=== PATIENT | male | born 1945 | race Caucasian/White ===

== ENCOUNTER → 2022-06-30 16:34 | Outpatient (BNVA) | payer MEDICARE, OTHER, SELFPAY | PROVIDERS: Visit Provider Psychiatry & Neurology Psychiatry | DX: F33.41 Major depressive disorder, recurrent, in partial remission (principal); F41.1 Generalized anxiety disorder | CPT/HCPCS: Q3014 ==

== ENCOUNTER → 2022-11-02 16:15 | Outpatient (BNVA) | payer MEDICARE, OTHER, SELFPAY | PROVIDERS: Visit Provider Psychiatry & Neurology Psychiatry ==

== ENCOUNTER → 2022-11-16 13:49 | Outpatient (BNVA) | payer MEDICARE, OTHER, SELFPAY | PROVIDERS: Visit Provider Psychiatry & Neurology Psychiatry | DX: F33.2 Major depressive disorder, recurrent severe without psychotic features (principal); F41.1 Generalized anxiety disorder | CPT/HCPCS: 99212 ==

== ENCOUNTER → 2022-12-15 12:23 | Outpatient (BNVA) | payer MEDICARE, OTHER, SELFPAY | PROVIDERS: Visit Provider Psychiatry & Neurology Psychiatry | DX: F41.1 Generalized anxiety disorder (principal); F33.41 Major depressive disorder, recurrent, in partial remission; I44.7 Left bundle-branch block, unspecified | CPT/HCPCS: 90833; 99212 ==

== ENCOUNTER 2023-02-20 17:27 | Outpatient (AMB) | payer MEDICARE, OTHER, SELFPAY ==
--- NOTE | 2023-02-20 14:26 | A.OFFPSYCH_ITS ---
Intake Intake Visit Reasons: depression Allergies phenytoin [From Dilantin] Allergy (Intermediate, Verified 06/30/22 16:01) Difficulty Breathing HPI- Psychiatric Chief Complaint: depression HPI Narrative: Patient has had no further seizures. Cognitively is feeling improved better attention working memory. Mood has been more stable no significant episodes of depression he does have some chronic worry regarding his son in [place]. Patient off Wellbutrin doing well with augmentation with Abilify on Trileptal 300 b.i.d. gabapentin 600 mg Abilify has only needed 1 mg daily no changes on EKG or medical status Past Psychiatric History: The patient has a history of recurrent depression and anxiety history of 1-2 seizures many years ago sees Dr. Chavira occasionally Mental Status Exam Mental Status Exam Narrative: Mental Status Exam Narrative: Appearance: Casually dressed Behavior: Cooperative appropriate psychomotor: Within normal limits Speech: Normal volume and prosody Thought proccess logical and goal-directed Thought content: Future oriented some concerns about his son and dealing with multiple medical issues and his own mortality But doing better regarding this Mood: Euthymic Affect: Appropriate to mood full affect SI:denies HI:denies VH/AH:none Delusions: None Insight/judgment: Good insight and judgment Memory/cog: Intact Telehealth Telehealth Location of provider rendering services: practice address Location of patient: address on file Patient Identification confirmed using: Name, : Yes Telehealth method: video Patient verbally consented to treatment: Yes Minutes spent on Phone/Video with Pt.: 20 Assessment and Plan Assessment & Plan (1) LBBB (left bundle branch block): Status: Acute Code(s): I44.7 - Left bundle-branch block, unspecified (2) Generalized anxiety disorder: Status: Acute Code(s): F41.1 - Generalized anxiety disorder (3) Major depressive disorder, recurrent episode, in partial remission: Status: Acute Code(s): F33.41 - Major depressive disorder, recurrent, in partial remission (4) Cardiomyopathy: Status: Acute Code(s): I42.9 - Cardiomyopathy, unspecified Plan Continue Effexor low-dose Abilify can try and taper patient to continue daily exercise meditation engagement in activities Medications: Refilled venlafaxine ER 150 mg PO BEDTIME 90 caps 1RF aripiprazole (Abilify) 1 - 2 mg (0.5 - 1 x 2 mg) PO DAILY 90 tabs 1RF Counseling and coordination of Care Pt. Self Management counseling: Breathing and Behavior activation Medication management counseling: Effectiveness Diagnosis and Prognosis Counseling: Prognosis over time and Adequacy of current interventions Details: I spent [25] minutes reviewing the record, seeing the patient and documenting in the medical record. Counseling provided to the patient/caregiver as outlined below. Addressed patient/caregiver concerns regarding current medication regime including effective adherence. Addressed patient/caregiver concerns regarding diagnosis and prognosis including accuracy of diagnosis, prognosis over time, impact of diagnosis. Addressed patient/caregiver concerns regarding impact of recent stressors. 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
== END 2023-02-20 17:28 | disposition home or self-care (01) ==
LOC: HO.HOP 17:27
PROVIDERS: Visit Provider Psychiatry & Neurology Psychiatry
DX: F33.41 Major depressive disorder, recurrent, in partial remission (principal); F41.1 Generalized anxiety disorder; I42.9 Cardiomyopathy, unspecified; I44.7 Left bundle-branch block, unspecified
CPT/HCPCS: 99214

== ENCOUNTER → 2023-02-20 17:27 | Outpatient (BNVA) | payer MEDICARE, OTHER, SELFPAY | PROVIDERS: Visit Provider Psychiatry & Neurology Psychiatry | DX: I42.9 Cardiomyopathy, unspecified (principal); I44.7 Left bundle-branch block, unspecified ==

== ENCOUNTER 2023-04-18 12:01 | Outpatient (AMB) | payer MEDICARE, OTHER, SELFPAY ==
--- NOTE | 2023-04-18 12:20 | MHC.OFFVISPS ---
Intake Intake Visit Reasons: depression Allergies phenytoin [From Dilantin] Allergy (Intermediate, Verified 06/30/22 16:01) Difficulty Breathing HPI- Psychiatric Chief Complaint: depression HPI Narrative: Pt has been doin g well generally minimal dose of Abilify to get did look at possibly doing ketamine TMS although did have a seizure number months ago patient continues on Effexor 150 mg Abilify generally 1 mg gabapentin 600 mg oxcarbazepine mood is generally been stable some concerns at times regarding his children recently some difficulty in relationship to his ex- who had become reactive with their children mood generally stable future oriented able to enjoy things does yoga biking chronic cardiomyopathy appears not to have generally interfered with his functioning patient did have a concussion number months ago and had some dysphoria slowed mentation after this now improving Past Psychiatric History: The patient has a history of recurrent depression and anxiety history of 1-2 seizures many years ago sees Dr. Chavira occasionally Mental Status Exam Mental Status Exam Narrative: Mental Status Exam Narrative: Appearance: Casually dressed Behavior: Cooperative appropriate psychomotor: Within normal limits Speech: Normal volume and prosody Thought proccess logical and goal-directed Thought content: Future oriented some concerns about his health and family But doing better regarding this Mood: Euthymic some anxiety Affect: Appropriate to mood SI:denies HI:denies VH/AH:none Delusions: None Insight/judgment: Good insight and judgment Memory/cog: Intact Assessment and Plan Assessment & Plan (1) Generalized anxiety disorder: Status: Acute Code(s): F41.1 - Generalized anxiety disorder (2) Major depressive disorder, recurrent episode, in partial remission: Status: Acute Code(s): F33.41 - Major depressive disorder, recurrent, in partial remission (3) Cardiomyopathy: Status: Acute Code(s): I42.9 - Cardiomyopathy, unspecified Plan Continue Effexor Abilify gabapentin encourage yoga meditation patient regularly exercises Medications: Refilled gabapentin 600 mg PO BEDTIME 90 tabs 1RF Counseling and coordination of Care Pt. Self Management counseling: Breathing Details-Self Mgmt counseling: Issues related to health and family Diagnosis and Prognosis Counseling: Impact of diagnosis on life functions and Adequacy of current interventions Details: I spent [30] minutes reviewing the record, seeing the patient and documenting in the medical record. Counseling provided to the patient/caregiver as outlined below. Addressed patient/caregiver concerns regarding current medication regime including effective adherence. Addressed patient/caregiver concerns regarding diagnosis and prognosis including accuracy of diagnosis, prognosis over time, impact of diagnosis. Addressed patient/caregiver concerns regarding impact of recent stressors. 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
== END 2023-04-18 14:45 | disposition home or self-care (01) ==
LOC: HO.HOP 12:01
PROVIDERS: Visit Provider Psychiatry & Neurology Psychiatry
DX: F41.1 Generalized anxiety disorder (principal); F33.41 Major depressive disorder, recurrent, in partial remission; I42.9 Cardiomyopathy, unspecified
CPT/HCPCS: 99214

== ENCOUNTER → 2023-04-18 12:01 | Outpatient (BNVA) | payer MEDICARE, OTHER, SELFPAY | PROVIDERS: Visit Provider Psychiatry & Neurology Psychiatry | DX: F33.41 Major depressive disorder, recurrent, in partial remission (principal); I42.9 Cardiomyopathy, unspecified; G40.909 Epilepsy, unspecified, not intractable, without status epilepticus; F41.1 Generalized anxiety disorder | CPT/HCPCS: 99212 ==

== ENCOUNTER 2023-07-21 17:08 | Outpatient (AMB) | payer MEDICARE, OTHER, SELFPAY ==
--- NOTE | 2023-07-21 12:19 | A.OFFPSYCH_ITS ---
Intake Intake Visit Reasons: DEPRESSION Allergies phenytoin [From Dilantin] Allergy (Intermediate, Verified 06/30/22 16:01) Difficulty Breathing Medication List - Last Reconciled 07/21/23 by Geronimo Jung MD aripiprazole (Abilify) 1 - 2 mg (0.5 - 1 x 2 mg) PO DAILY clonazepam 0.5 mg PO BEDTIME dapagliflozin propanediol (Farxiga) 10 mg PO DAILY eplerenone mg PO gabapentin 600 mg PO BEDTIME metoprolol succinate ER 12.5 mg PO BID oxcarbazepine 300 mg PO BID sacubitril-valsartan 24-26 mg (Entresto) 1 tab PO BID venlafaxine ER 150 mg PO BEDTIME HPI- Psychiatric Chief Complaint: DEPRESSION HPI Narrative: Patient seen psychiatric follow-up patient will be going to [place] for a period of time. The patient's mood has been stable he has been medically stable continues to be physically active. Patient has not had any seizures cognitively he is stable. Has been on Abilify 2 mg has had no evidence dyskinesia abnormal movements. Patient feeling at baseline Past Psychiatric History: The patient has a history of recurrent depression and anxiety history of 1-2 seizures many years ago sees Dr. Chavira occasionally Mental Status Exam Mental Status Exam Narrative: Mental Status Exam Narrative: Appearance: Casually dressed Behavior: Cooperative appropriate psychomotor: Within normal limits Speech: Normal volume and prosody Thought proccess logical and goal-directed Thought content: Future oriented no self-harming thoughts Mood: Euthymic Affect: Appropriate to mood full affect SI:denies HI:denies VH/AH:none Delusions: None Insight/judgment: Good insight and judgment Memory/cog: Intact Assessment and Plan Assessment & Plan (1) Generalized anxiety disorder: Status: Acute Code(s): F41.1 - Generalized anxiety disorder (2) Major depression, recurrent, full remission: Status: Acute Code(s): F33.42 - Major depressive disorder, recurrent, in full remission Plan Patient continues to be stable tolerating current regimen Effexor Abilify 2 mg. We discussed the potential for tapering and discontinuing Abilify at a later point. No evidence side effects continue at this time follow-up 4 months Counseling and coordination of Care Pt. Self Management counseling: Breathing and Exercise Diagnosis and Prognosis Counseling: Problematic behaviors secondary to diagnosis and Adequacy of current interventions Details: I spent [] minutes reviewing the record, seeing the patient and documenting in the medical record. Counseling provided to the patient/caregiver as outlined below. Addressed patient/caregiver concerns regarding current medication regime including effective adherence. Addressed patient/caregiver concerns regarding diagnosis and prognosis including accuracy of diagnosis, prognosis over time, impact o0f diagnosis. Addressed patient/caregiver concerns regarding impact of recent stressors. 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
== END 2023-07-21 17:09 | disposition home or self-care (01) ==
LOC: HO.HOP 17:08
PROVIDERS: Visit Provider Psychiatry & Neurology Psychiatry
DX: F41.1 Generalized anxiety disorder (principal); F33.42 Major depressive disorder, recurrent, in full remission
CPT/HCPCS: 99214

== ENCOUNTER → 2023-07-21 17:08 | Outpatient (BNVA) | payer MEDICARE, OTHER, SELFPAY | PROVIDERS: Visit Provider Psychiatry & Neurology Psychiatry | DX: F33.42 Major depressive disorder, recurrent, in full remission (principal); F41.1 Generalized anxiety disorder; Z79.899 Other long term (current) drug therapy | CPT/HCPCS: 99212 ==

== ENCOUNTER 2023-11-02 13:31 | Outpatient (AMB) | payer MEDICARE, OTHER, SELFPAY ==
--- NOTE | 2023-11-02 14:09 | MHC.OFFVISPS ---
Intake Intake Visit Reasons: depression Allergies phenytoin [From Dilantin] Allergy (Intermediate, Verified 06/30/22 16:01) Difficulty Breathing Medication List - Last Reconciled 11/02/23 by Geronimo Jung MD aripiprazole 1 - 2 mg (0.5 - 1 x 2 mg) PO DAILY clonazepam 0.5 mg PO BEDTIME dapagliflozin propanediol (Farxiga) 10 mg PO DAILY eplerenone mg PO gabapentin 600 mg PO BEDTIME metoprolol succinate ER 12.5 mg PO BID oxcarbazepine 300 mg PO BID rosuvastatin 20 mg PO DAILY sacubitril-valsartan 24-26 mg (Entresto) 1 tab PO BID venlafaxine ER 150 mg PO BEDTIME HPI- Psychiatric Chief Complaint: depression HPI Narrative: Patient seen psychiatric follow-up. Patient's mood has been stable he is future oriented generally doing well. No new medical concerns patient has a history of cardiomyopathy nothing has significantly changed patient has generally been stable on Abilify 2 mg Effexor takes gabapentin oxcarbazepine for combination of seizure disorder and restless leg has not had a seizure in a significant length of time Past Psychiatric History: The patient has a history of recurrent depression and anxiety history of 1-2 seizures many years ago sees Dr. Chavira occasionally Mental Status Exam Mental Status Exam Narrative: Mental Status Exam Narrative: Appearance: Casually dressed Behavior: Cooperative appropriate psychomotor: Within normal limits Speech: Normal volume and prosody Thought proccess logical and goal-directed Thought content: Future oriented no self-harming thoughts Mood: Euthymic Affect: Appropriate to mood full affect SI:denies HI:denies VH/AH:none Delusions: None Insight/judgment: Good insight and judgment Memory/cog: Intact Assessment and Plan Assessment & Plan (1) Major depression, recurrent, full remission: Status: Acute Code(s): F33.42 - Major depressive disorder, recurrent, in full remission (2) Generalized anxiety disorder: Status: Acute Code(s): F41.1 - Generalized anxiety disorder Plan Extensive discussion with the patient regarding long-term risks benefits with Abilify decided to go down to 1 mg also long-term risks benefits with gabapentin and clonazepam and whether these could be contributing factors to dementia risks Medications: Refilled venlafaxine ER 150 mg PO BEDTIME 90 caps 1RF Counseling and coordination of Care Medication management counseling: Effectiveness, Side effects, Dosing range and Duration Details-Med Mgmt counseling: Discussed issues related to discontinuing Abilify versus efficacy and potential long-term risks Details: I spent [] minutes reviewing the record, seeing the patient and documenting in the medical record. Counseling provided to the patient/caregiver as outlined below. Addressed patient/caregiver concerns regarding current medication regime including effective adherence. Addressed patient/caregiver concerns regarding diagnosis and prognosis including accuracy of diagnosis, prognosis over time, impact of diagnosis. Addressed patient/caregiver concerns regarding impact of recent stressors. 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
== END 2023-11-02 14:36 | disposition home or self-care (01) ==
LOC: HO.HOP 13:31
PROVIDERS: Visit Provider Psychiatry & Neurology Psychiatry
DX: F33.42 Major depressive disorder, recurrent, in full remission (principal); F41.1 Generalized anxiety disorder
CPT/HCPCS: 90833; 99213

== ENCOUNTER → 2023-11-02 13:31 | Outpatient (BNVA) | payer MEDICARE, OTHER, SELFPAY | PROVIDERS: Visit Provider Psychiatry & Neurology Psychiatry | DX: F33.42 Major depressive disorder, recurrent, in full remission (principal); F41.1 Generalized anxiety disorder | CPT/HCPCS: 99212 ==

== ENCOUNTER 2024-05-02 14:12 | Outpatient (AMB) | payer MEDICARE, OTHER, SELFPAY ==
--- NOTE | 2024-05-02 14:17 | A.OFFPSYCH_ITS ---
Intake Intake Visit Reasons: depression Allergies phenytoin [From Dilantin] Allergy (Intermediate, Verified 06/30/22 16:01) Difficulty Breathing Medication List - Last Reconciled 05/16/24 by Geronimo Jung MD aripiprazole 1 - 2 mg (0.5 - 1 x 2 mg) PO DAILY clonazepam 0.5 mg PO BEDTIME dapagliflozin propanediol (Farxiga) 10 mg PO DAILY eplerenone mg PO gabapentin 600 mg PO BEDTIME metoprolol succinate ER 12.5 mg PO BID oxcarbazepine 300 mg PO BID rosuvastatin 20 mg PO DAILY sacubitril-valsartan 24-26 mg (Entresto) 1 tab PO BID venlafaxine ER 150 mg PO BEDTIME HPI- Psychiatric Chief Complaint: depression HPI Narrative: Pt seen in f/u goes to [place] taking abilify has generally been doing okay. Enjoys hiking and traveling. Medically no change with his cardiomyopathy that is being treated but not significantly impacting his life and no recent seizures. He notes no abnormal movements he is aware of tardive dyskinesia risks. He spends time in [place] at home in [facility]. He has had thoughts regarding ketamine/psilocybin. His PHQ-9 GRANT are unremarkable. Past Psychiatric History: The patient has a history of recurrent depression and anxiety history of 1-2 seizures many years ago sees Dr. Chavira occasionally Mental Status Exam Mental Status Exam Narrative: Mental Status Exam Narrative: Appearance: Casually dressed no abnormal movements noted on exam no oral facial dyskinesia Behavior: Cooperative appropriate psychomotor: Within normal limits Speech: Normal volume and prosody Thought proccess logical and goal-directed Thought content: Future oriented some concerns regarding recommendations for preventing future relapse some preoccupations regarding sleep Mood: Euthymic Affect: Appropriate to mood SI:denies HI:denies VH/AH:none Delusions: None Insight/judgment: Good insight and judgment Memory/cog: Intact Assessment and Plan Assessment & Plan (1) Generalized anxiety disorder: Status: Acute Code(s): F41.1 - Generalized anxiety disorder (2) Major depression, recurrent, full remission: Status: Acute Code(s): F33.42 - Major depressive disorder, recurrent, in full remission Plan no change indicated at this time patient wishes to continue Abilify he is aware he could start a taper on his own if he wishes. Mood stable cognitively intact no new medical concerns generally done well on current regimen Counseling and coordination of Care Details-Self Mgmt counseling: continue yoga regular excise Medication management counseling: Effectiveness, Side effects and Dosing range Diagnosis and Prognosis Counseling: Prognosis over time Details-Diagnosis/Prognosis counseling: medications reviewed continue gabapentin clonazepam for sleep restless legs seizure disorder continue Effexor low-dose of Abilify Details: I spent [30] minutes reviewing the record, seeing the patient and documenting in the medical record. Counseling provided to the patient/caregiver as outlined below. Addressed patient/caregiver concerns regarding current medication regime including effective adherence. Addressed patient/caregiver concerns regarding diagnosis and prognosis including accuracy of diagnosis, prognosis over time, impact of diagnosis. Addressed patient/caregiver concerns regarding impact of recent stressors. 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
== END 2024-05-02 14:57 | disposition home or self-care (01) ==
LOC: HO.HOP 14:12
PROVIDERS: Visit Provider Psychiatry & Neurology Psychiatry
DX: F41.1 Generalized anxiety disorder (principal); F33.42 Major depressive disorder, recurrent, in full remission
CPT/HCPCS: 99214

== ENCOUNTER → 2024-05-02 14:12 | Outpatient (BNVA) | payer MEDICARE, OTHER, SELFPAY | PROVIDERS: Visit Provider Psychiatry & Neurology Psychiatry | DX: F41.1 Generalized anxiety disorder (principal); F33.42 Major depressive disorder, recurrent, in full remission; Z71.89 Other specified counseling | CPT/HCPCS: 99212 ==

== ENCOUNTER → 2024-10-10 12:07 | Outpatient (BNVA) | payer MEDICARE, OTHER, SELFPAY | PROVIDERS: Visit Provider Psychiatry & Neurology Psychiatry | DX: Z13.89 Encounter for screening for other disorder (principal) ==

== ENCOUNTER 2024-12-17 17:18 | Outpatient (AMB) | payer MEDICARE, OTHER, SELFPAY ==
--- NOTE | 2024-12-17 16:15 | A.OFFPSYCH_ITS ---
Intake Intake Visit Reasons: depression Allergies phenytoin (From Dilantin) Allergy (Intermediate, Verified 06/30/22 16:01) Difficulty Breathing HPI- Psychiatric Chief Complaint: depression HPI Narrative: Pt seen in f/u mood has been more anxious and stressed since ? seizure has recent fatty liver .. Mood some increased anxiety and dysphoria. Patient having medical workup. Question some increase this area after recent seizure not reported syncope. Had been asking about whether to discontinue Abilify Past Psychiatric History: The patient has a history of recurrent depression and anxiety history of 1-2 seizures many years ago sees Dr. Chavira occasionally Mental Status Exam Mental Status Exam Narrative: Patient casually dressed cooperative. Speech normal volume prosody. Mood some dysphoria some constriction future oriented focused on his health no orofacial dyskinesia no psychosis no hallucination Assessment and Plan Assessment & Plan (1) Major depression, recurrent, full remission: Status: Acute Code(s): F33.42 - Major depressive disorder, recurrent, in full remission (2) Generalized anxiety disorder: Status: Acute Code(s): F41.1 - Generalized anxiety disorder (3) Cardiomyopathy: Status: Acute Code(s): I42.9 - Cardiomyopathy, unspecified (4) Seizure disorder: Status: Acute Code(s): G40.909 - Epilepsy, unspecified, not intractable, without status epilepticus Plan Recommend continue Abilify patient will have neurological follow-up and evaluation. Continue plan of care on gabapentin Effexor oxcarbazepine Counseling and coordination of Care Details: I spent [] minutes reviewing the record, seeing the patient and documenting in the medical record. Counseling provided to the patient/caregiver as outlined below. Addressed patient/caregiver concerns regarding current medication regime including effective adherence. Addressed patient/caregiver concerns regarding diagnosis and prognosis including accuracy of diagnosis, prognosis over time, impact of diagnosis. Addressed patient/caregiver concerns regarding impact of recent stressors. 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
--- OUTSIDE RECORDS SUMMARY | 2024-12-17 19:10 | XMS_ITS | Data Portability ---
Author Organization [facility], , [facility] Address [address] [place] [address] Assessment No assessment recorded. Plan of Treatment Reminders Order Date Submit Date Provider Last Modified By Organization Details Last Modified Time Details Appointments None record ed. Lab None record ed. Referral None record ed. Procedures None record ed. Surgeries None record ed. Imaging None record ed. Medication Orders None record ed. Patient TargetsNo targets recorded. Patient InstructionsNo instructions recorded. Reason for Referral None Reported. Problems Name Problem SNOMED Code Status Onset Date Resolution Date Notes Provider Name and Address Organization Details Recorded Time Pain of shoulder region 73164669 Completed 200505/15/[address] 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 3 03:09:49 Problem Notes None recorded. Procedures Surgical History Date Name Laterality Status Provider Name and Address Organization Details Recorded Time 11/06/19 16 Ochoa - Colonoscopy completed Jac Ochoa MD [address] [place] [address], [id number], [facility] 11/06/2015 11:23:34 08/01/19 06 completed Not Available [facility] 1 06:05:52 Imaging Results None recorded. Procedure Notes None recorded. Medical Equipment None Reported. Vitals None Recorded Social History None recorded. Functional Status None recorded. Mental Status None recorded. Family History Nothing Reported. Medical History No medical history recorded. Past Encounters Encounter ID Performer Location Encounter Start Date Encounter Closed Date Diagnosis/Indication Diagnosis SNOMED-CT Code Diagnosis ICD10 Code Diagnosis Note [id number] ARMOND PARKER MD [facility], [address] [id number] 08/01/2005 10:46:52 08/03/2005 08:04:06 [id number] Juan Ramon Szymanski i, PT Physical Therapy, [facility] [place] [id number] 03/30/2006 14:17:55 03/30/2006 15:09:55 [id number] Juan Ramon Szymanski i, PT Physical Therapy, [facility] [place] [id number] 04/04/2006 13:26:08 04/04/2006 15:10:08 [id number] Juan Ramon Szymanski i, PT Physical Therapy, [facility] [place] [id number] 04/11/2006 12:50:43 04/11/2006 15:19:09 [id number] Juan Ramon Szymanski i, PT Physical Therapy, [facility] [place] [id number] 04/18/2006 14:28:35 04/18/2006 15:16:10 [id number] Juan Ramon Szymanski i, PT Physical Therapy, [facility] [place] [id number] 07/07/2006 08:14:33 07/07/2006 08:14:44 [id number] Jac Ochoa MD [facility], [facility] [place] [id number] 11/06/2015 09:44:24 11/06/2015 13:39:44 Health Concerns Section Related Observation LastModified by Organization Detai ls LastModified Time None Recorded Concern Status LastModified by Organization Details LastModified Time None Recorded Advance Directives Directive None Recorded Payers Insurance Date Sequence Insurance Name Policy Number Policy Gallardo Covered Member ID Gallardo Member ID Guarantor Name 09/17/2021 2 [facility] (O) Marty Macias [id number] Marty Macias 10/06/2021 2 [facility] - MEDICARE ENHANCE (INDEMNITY PLAN) Marty Macias [id number] Marty Macias 07/15/2015 1 [facility] PLAN (HMO) Marty Macias [id number] Marty Macias 10/18/2010 1 [facility] Colleen [id number] Marty Macias 10/18/2010 1 [facility] PLAN - LIBERTY PLAN BY JOANNA (PPO) [id number] Jared Macias [id number] Marty Macias 10/06/2021 1 MEDICARE B-MS: [employer] Marty Macias Jr [id number] Marty Macias
== END 2024-12-17 17:20 | disposition home or self-care (01) ==
LOC: HO.HOP 17:18
PROVIDERS: Visit Provider Psychiatry & Neurology Psychiatry
DX: F33.42 Major depressive disorder, recurrent, in full remission (principal); F41.1 Generalized anxiety disorder; I42.9 Cardiomyopathy, unspecified; G40.909 Epilepsy, unspecified, not intractable, without status epilepticus
CPT/HCPCS: 99214

== ENCOUNTER → 2024-12-17 17:18 | Outpatient (BNVA) | payer MEDICARE, OTHER, SELFPAY | PROVIDERS: Visit Provider Psychiatry & Neurology Psychiatry | DX: F33.42 Major depressive disorder, recurrent, in full remission (principal); F41.1 Generalized anxiety disorder; I42.9 Cardiomyopathy, unspecified; G40.909 Epilepsy, unspecified, not intractable, without status epilepticus | CPT/HCPCS: 99212 ==

== ENCOUNTER 2025-01-31 11:35 | Outpatient (AMB) | payer MEDICARE, OTHER, SELFPAY ==
--- NOTE | 2025-01-31 11:40 | A.OFFPSYCH_ITS ---
Intake Intake Visit Reasons: depression Intake Note: Pt has been drinking 3/4 bottle day started surreptitiously drinking Allergies phenytoin (From Dilantin) Allergy (Intermediate, Verified 06/30/22 16:01) Difficulty Breathing HPI- Psychiatric Chief Complaint: depression HPI Narrative: Patient has been increasingly depressed anxious a seizure in November with fall. Patient has apparently been surreptitiously drinking for over year and half. This is in spite of the patient understanding has a seizure disorder and history of cardiomyopathy that alcohol would potentially worsen both issues. The patient can not really explain his behavior neuro why he has not been honest with this literary writer. It appears that he has felt some lost depressed and was looking to none that with alcohol perhaps. Patient has been in counseling but unclear if helpful. Past Psychiatric History: The patient has a history of recurrent depression and anxiety history of 1-2 seizures many years ago sees Dr. Chavira occasionally Mental Status Exam Mental Status Exam Narrative: Patient casually dressed sad looking preoccupied. Patient anxious and dysphoric understands he needs to become sober seems chronically dysthymic although he has multiple interest biking politics he states he has been feeling somewhat lost. Was able to take in information regarding the toxicity of alcohol potential dangerous for him no active SI somewhat fearful of future no psychosis impulse control intact judgment easily somewhat impaired he is looking for help Assessment and Plan Assessment & Plan (1) Generalized anxiety disorder: Status: Acute Code(s): F41.1 - Generalized anxiety disorder (2) Major depression, recurrent, chronic: Status: Acute Code(s): F33.9 - Major depressive disorder, recurrent, unspecified (3) Alcohol use disorder: Status: Acute Code(s): F10.90 - Alcohol use, unspecified, uncomplicated Plan Check labs B12 folate encourage sobriety encourage full honesty patient apparently has been defended needed to cut visit somewhat short he will be going to rehab setting Orders: Orders Comprehensive Met. Panel 01/31/25 I42.9 - Cardiomyopathy, unspecified, K76.0 - Fatty (change of) liver, not elsewhere classified Vitamin B12 and Folate 01/31/25 I42.9 - Cardiomyopathy, unspecified, K76.0 - Fatty (change of) liver, not elsewhere classified Counseling and coordination of Care Pt. Self Management counselin Step program Details-Self Mgmt counseling: Need better understanding of patient's substance history which prior to this patient had stated was long ago in past Patient has some degree of internal despair would benefit from ongoing psycho therapy that also degrees substance abuse piece Medication management counseling: Effectiveness, Side effects and Dosing range Details-Med Mgmt counseling: Continue Abilify might consider spravato patient seems not to be a good candidate for TMS with recent seizures question alcohol-related Diagnosis and Prognosis Counseling: Accuracy of diagnosis, Prognosis over time, Impact of diagnosis on life functions, Problematic behaviors secondary to diagnosis and Adequacy of current interventions Details: I spent [] minutes reviewing the record, seeing the patient and documenting in the medical record. Counseling provided to the patient/caregiver as outlined below. Addressed patient/caregiver concerns regarding current medication regime including effective adherence. Addressed patient/caregiver concerns regarding diagnosis and prognosis including accuracy of diagnosis, prognosis over time, impact of diagnosis. Addressed patient/caregiver concerns regarding impact of recent stressors. 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
== END 2025-01-31 12:31 | disposition home or self-care (01) ==
LOC: HO.HOP 11:35
PROVIDERS: Visit Provider Psychiatry & Neurology Psychiatry
DX: F41.1 Generalized anxiety disorder (principal); F33.9 Major depressive disorder, recurrent, unspecified; F10.90 Alcohol use, unspecified, uncomplicated
CPT/HCPCS: 99214

== ENCOUNTER → 2025-01-31 11:35 | Outpatient (BNVA) | payer MEDICARE, OTHER, SELFPAY | PROVIDERS: Visit Provider Psychiatry & Neurology Psychiatry | DX: F41.1 Generalized anxiety disorder (principal); F33.9 Major depressive disorder, recurrent, unspecified; F10.90 Alcohol use, unspecified, uncomplicated | CPT/HCPCS: 99212 ==

== ENCOUNTER 2025-02-27 14:22 | Outpatient (AMB) | payer MEDICARE, OTHER, SELFPAY ==
--- OUTSIDE RECORDS SUMMARY | 2025-02-25 13:59 | XMS_ITS | Encounter Summary ---
Author Organization [facility] Address [address] [place] [address] [place] [address] Phone Care Team Providers Care Seasoning Sprayer Name Role Phone Ronn Harris MD Unavailable [phone] Debra Rasheed MD Unavailable [phone] Adwoa Mehta MD Unavailable [phone] Byron Beebe DO Unavailable [phone] Harry Moyer MD Primary Care Provider + Reason for Referral * MRI/CAT Scan - Closed Specialty Diagnoses / Procedures Referred By Contac t Referred To Contact Radiology Diagnoses Closed fracture dislocation of joint of left shoulder girdle, initial encounter Procedures CT Shoulder (Left) Real Thompson PA-C 4 [facility], [facility] [place] [address] Phone: tel: fax: [email or web address] Referral ID Status Reason Start Date Expiration Date Visits Re quested Visits Authorized [id number] Closed 02/19/2025 02/19/2026 1 1 Reason for Visit * MRI/CAT Scan - Closed Specialty Diagnoses / Procedures Referred By Contac t Referred To Contact Radiology Diagnoses Closed fracture dislocation of joint of left shoulder girdle, initial encounter Procedures CT Shoulder (Left) Real Thompson PA-C [address] [place] [address] [facility] [place] [address] Phone: tel: fax: mailto:[email or web address] Referral ID Status Reason Start Date Expiration Date Visits Re quested Visits Authorized [id number] Closed 02/19/2025 02/19/2026 1 1 Encounter Details Date Type Department Care Team (Latest Contact Info) Description 02/25/2025 1:59 PM EDT - 02/25/2025 11:59 PM EDT Hospital Encounter [facility], Ct Scan - [address] [address] Real Thompson PA-C 4 [facility], [facility] [place] [address] [email or web address] Arrived Discharge Disposition: Home or Self Care Social History Tobacco Use Types Packs/Day Years Used Date Smoking Tobacco: Former Cigarettes 1 5 0 11/24/1968 - 06/26/1973 Smokeless Tobacco: Never Alcohol Use Standard Drinks/Week Comments No 0 (1 standard drink = 0.6 oz pur e alcohol) Child or Family Care Answer Date Record ed Do you have problems with on e of the following making it difficult for you to work, study, or receive health care? No 06/26/2021 Education Answer Date Recorded Are you interested in more education? Not on christine e 06/29/2023 Are you concerned about learning? Not on file 06/29/2023 No 06/29/2023 No 06/29/2023 Food Answer Date Recorded Within the past 6 months we worried whether our food would run out before we got money to buy more. Never True 02/26/2025 Within the past 6 months the food we bought just didn't last and we didn't have enough money to get more. Never True Residential Stability Answer Date Recor ded What is your housing situation today? I have adonay sing 02/26/2025 How many times have you move d in the past 12 months? Zero (I did not move) 02/26/2025 Paying for Meds Answer Date Recorded Do you have trouble paying for medicines? No 02/26/2025 Paying Utility Bills Answer Date Record ed Do you have trouble paying your heating or elect ricity bill? No 02/26/2025 Transportation Answer Date Recorded Has the lack of transportati on kept you from medical appointments or from getting medications? No 02/26/2025 Unemployment Answer Date Recorded Are you currently unemployed or working on a part-time or temporary basis, and looking for work? No 06/26/2021 Digital Access Answer Date Recorded No 02/26/2025 Yes 02/26/2025 Do you have reliable internet access at home? Ye s 02/26/2025 Do you have a device (e.g., phone, tablet, computer) with a working camera? Yes 02/26/2025 Intimate Partner Violence Answer Date R ecorded Are you denied basic needs s uch as food, clothing, or medical care? No 02/26/2025 In the past 12 months have y ou been in a relationship with a person who hurts, threatens, or tries to control you? No 02/26/2025 Are you denied basic needs s uch as food, clothing, or medical care? No 02/26/2025 In the past 12 months have y ou been in a relationship with a person who hurts, threatens, or tries to control you? No 02/26/2025 Sex and Gender Information Value Date Recorded Sex Assigned at Male 08/15/2020 10:42 AM EST Legal Sex Male 1:14 PM EDT Gender Identity Male 08/15/2020 10:42 AM EST Sexual Orientation Straight 08/15/2020 10 :42 AM EST documented as of this encounter Medications at Time of Discharge ARIPiprazole (ABILIFY) 2 MG tablet Take 2 mg by mouth daily. 05/19/2023 clonazePAM (KLONOPIN) 0.5 MG tablet Take 1 tablet (0.5 mg total) by mouth nightly at bedtime. 10 tablet 03/11/2022 dapagliflozin propanediol (FARXIGA) 10 mg tabletIndications:C hronic systolic heart failure Take 1 tablet (10 mg total) by mouth daily. 90 tablet 3 09/24/2024 eplerenone (INSPRA) 25 MG tabletIndications:C hronic systolic heart failure TAKE ONE-HALF TABLET BY MOUTH ONCE DAILY 45 tablet 3 10/02/2024 gabapentin (NEURONTIN) 600 MG tablet 05/25/2022 metoprolol succinate (TOPROL-XL) 25 MG 24 hr tablet Take 0.5 tablets (12.5 mg total) by mouth daily. 45 tablet 3 11/19/2024 omeprazole (PRILOSEC) 20 MG capsule Take 20 mg by mouth daily. 01/24/2013 OXcarbazepine (TRILEPTAL) 300 MG tablet Take 1 tablet (300 mg total) by mouth 2 (two) times a day. 09/07/2022 rosuvastatin (CRESTOR) 20 MG tablet take one tablet by mouth every day 90 tablet 3 02/28/2024 sacubitriL-valsarta n (ENTRESTO) 24-26 mg per tabletIndications:N on-ischemic cardiomyopathy Take 1 tablet by mouth 2 (two) times a day. 180 tablet 3 10/08/2024 sildenafiL (VIAGRA) 100 mg tablet Take 1 tablet (100 mg total) by mouth daily as needed. 20 tablet 02/16/2023 tamsulosin (FLOMAX) 0.4 mg Cap take 1 capsule by mouth every day 90 capsule 3 08/02/2023 tretinoin (RETIN-A) 0.1 % cream Apply 1 application topically nightly. 2 03/16/2017 venlafaxine (EFFEXOR-XR) 150 MG 24 hr capsuleIndications: Depression Take 1 capsule (150 mg total) by mouth nightly at bedtime. 5 capsule 12/03/2021 documented as of this encounter Plan of Treatment Upcoming Encounters Date Type Department Care Team (Late st Contact Info) Description 12/18/2024 Procedure Pass [facility], Ct Scan - [facility] [address] [place] [address] 03/05/2025 9:00 AM EDT Office Visit [facility] [address] [place] [address] Gab Javed DO [address] [place] [address] [facility] [place] [address] [email or web address] 03/07/2025 10:00 AM EDT Office Visit [facility] [address] [place] [address] Andre Zarate MD, SHEMAR [address] [address] [email or web address] 03/31/2025 8:00 AM EDT Telemedicine [facility] Epilepsy Service [address] [facility], 8th Floor, [address] [place] [address] Lucia Samuel MD 55 [facility] Department of [email or web address] [place] [address] [email or web address] 04/11/2025 2:00 PM EDT Office Visit [facility] Heart Failure & Transplantation [address] [facility], 5th Floor, [address] [place] [address] Raza Pan MD 55 [facility] [address] [place] [address] [email or web address] 10/01/2025 10:30 AM EDT Appointment [facility], Ct Scan - [address] [address] Byron Beebe, DO [address] [place] [address] [email or web address] 10/08/2025 10:30 AM EDT Office Visit [facility] at [address] [address] Byron Beebe, DO [address] [place] [id number] [email or web address] documented as of this encounter Procedures Procedure Name Priority Date/Time Associated Diagnosis Comments CT SHOULDER WITHOUT CONTRAST (LEFT) Urgent/patient waiting 02/25/2025 2:25 PM EDT Closed fracture dislocation of joint of left shoulder girdle, initial encounter documented in this encounter Results * CT SHOULDER WITHOUT CONTRAST (LEFT) (02/25/2025 2:25 PM EDT) MGB IMG RENEWABLE ENERGY CONSULTANT COMMENT Incidental finding: Focal left lower lobe subpleural thickening, indeterminate. Further evaluation with dedicated CT chest may be considered in this patient with a history of non-small cell lung cance [facility] Anatomical Region Laterality Modality Shoulder Left Computed Tomogra phy 02/25/2025 2:34 PM EDT Impressions 02/25/2025 2:48 PM EDT 1. Comminuted minimally displaced impacted fracture of the anterior medial humeral head. Posterior subluxation of the humeral head. 2. Focal posterior left lower lobe subpleural thickening, indeterminate. Further evaluation with dedicated CT chest may be considered in this patient with a history of non-small cell lung cancer. A clinically significant result was initiated on 02/25/2025 2:47 PM, Message ID [id number]. Narrative 02/25/2025 2:[address] SHOULDER WITHOUT CONTRAST (LEFT) Referring clinician's provided indication for this examination in Epic: * Fracture, shoulder TECHNIQUE: Multidetector-row CT of the shoulder, without intravenous contrast using dose-modulation techniques. Images were reconstructed in the axial, coronal, and sagittal planes. 3D images were created on an independent workstation and interpreted. COMPARISON: Left shoulder radiographs 02/19/2025, CT chest 12/11/2024 FINDINGS: Bones and Joints: There is a comminuted minimally displaced impacted fracture of the anterior medial humeral head. The humeral head is subluxed and perched posteriorly on the glenoid. There is moderate underlying degenerative change. There is a moderate glenohumeral joint effusion. There is mild degenerative change of the acromioclavicular joint. Soft Tissues: There is a small fat attenuating lesion within the subscapularis muscle, likely representing old injury or an intramuscular lipoma. Otherwise, the muscles demonstrate normal bulk and density. There is focal posterior left lower lobe subpleural thickening measuring 5 x 10 mm (AP x TR, series 4 image 184). Procedure Note Venus Marcano MD - 02/25/2025 CT SHOULDER WITHOUT CONTRAST (LEFT) Referring clinician's provided indication for this examination in Epic: *Fracture, shoulder TECHNIQUE: Multidetector-row CT of the shoulder, without intravenouscontrast using dose-modulation techniques. Images were reconstructed inthe axial, coronal, and sagittal planes. 3D images were created on anNumedeon workstation and interpreted. COMPARISON: Left shoulder radiographs 02/19/2025, CT chest 12/11/2024 FINDINGS: Bones and Joints: There is a comminuted minimally displaced impactedfracture of the anterior medial humeral head. The humeral head is subluxedand perched posteriorly on the glenoid. There is moderate underlyingdegenerative change. There is a moderate glenohumeral joint effusion.There is mild degenerative change of the acromioclavicular joint. Soft Tissues: There is a small fat attenuating lesion within thesubscapularis muscle, likely representing old injury or an intramuscularlipoma. Otherwise, the muscles demonstrate normal bulk and density. Thereis focal posterior left lower lobe subpleural thickening measuring 5 x 10mm (AP x TR, series 4 image 184). IMPRESSION: 1. Comminuted minimally displaced impacted fracture of the anterior medialhumeral head. Posterior subluxation of the humeral head. 2. Focal posterior left lower lobe subpleural thickening, indeterminate.Further evaluation with dedicated CT chest may be considered in thispatient with a history of non-small cell lung cancer. A clinically significant result was initiated on 02/25/2025 2:47 PM, MessageID [id number]. Real Thompson PA-C IMAd CT EXTREMITY Final Result documented in this encounter Visit Diagnoses Diagnosis Closed fracture dislocation of joint of left shoulder girdle, initial encounter documented in this encounter Additional Health Concerns Assessment Noted Time PHQ-2 Depression Total Score: 0 01/04/20 22 2:34 PM EDT documented as of this encounter Care Teams Seasoning Sprayer Relationship Specialty Start Date End Date Harry Moyer MD [address] [facility] [address] [place] [address] [email or web address] 09/26/24 Ronn Harris MD 234 [facility] 7 [place] [id number] [email or web address] Historical LMR Provider 04/10/17 Debra Rasheed MD 234 [facility] [address] [place] [address] [email or web address] Historical LMR Provider 04/10/17 Adwoa Mehta MD 4 [facility], [facility] [place] [address] [email or web address] Historical LMR Provider 04/10/17 Byron Beebe DO [address] [place] [address] [email or web address] Primary Oncologist Hematology and Oncology 01/14/22 documented as of this encounter Additional Source Comments The information contained in this document represents components of the legal health record. It is not the complete legal health record.[facility]
--- OUTSIDE RECORDS SUMMARY | 2025-02-26 17:43 | XMS_ITS | Encounter Summary ---
Author Organization [facility] Address [address] [employer] [facility] [address] [place] [phone] Phone Care Team Providers Care C.O.D. Biller Name Role Phone Ronn Harris MD Unavailable [phone] Debra Rasheed MD Unavailable Adwoa Mehta MD Unavailable Byron Beebe DO Unavailable [phone] Harry Moyer MD Primary Care Provider + Reason for Visit * Reason Comments Shoulder Pain Encounter Details Date Type Department Care Team (Late st Contact Info) Description 02/26/2025 5:43 PM EDT - 02/27/2025 2:10 AM EDT Emergency [facility] [address] [place] [address] Tete Ruano MD [address] [place] [address] Dusty Hylton MD, DPHIL [address] [place] [address] [email or web address] [email or web address] Disposition: Home or Self Care Social [...] AM EST documented as of this encounter Last Filed Vital Signs Vital Sign Reading Time Taken Comments Blood Pressure 136/86 02/27/2025 12:30 AM EDT Pulse 82 02/27/2025 12:30 AM EDT Temperature 36.6 C (97.9 F) 02/26/2025 2:35 PM EDT Respiratory Rate 18 02/27/2025 12:30 AM EDT Oxygen Saturation 97% 02/27/2025 12:30 AM EDT Inhaled Oxygen Concentration - - Weight 83.5 kg (184 lb) 02/26/2025 2:35 PM EDT Height 180.3 cm (5' 11 ) 02/26/2025 2:35 PM EDT Body Mass Index 25.66 02/26/2025 2:35 PM EDT documented in this encounter Functional Status * Calculated C-SSRS Risk Score (Lifetime/Recent) Answer Date of Assessment Author No Risk Indicated 02/26/2025 2:33 PM EDT Aisha Segura, ADA * [place] Suicide Severity Rating Scale (Screener/Recent Self-Report) Question Answer Date of Assessment Author 1. Wish to be (Past 1 Month) No 025 2:33 PM EDT Aisha Bradford, ADA 2. Non-Specific Active Suici katia Thoughts (Past 1 Month) No 02/26/2025 2:33 PM EDT Aisha Bradford, RN 6. Suicidal Behavior (Lifetime) No 2:33 PM EDT Aisha Bradford, ADA documented as of this encounter Discharge Instructions * Discharge Instructions* Riya Bruce PA-C - 02/27/2025 12:57 AM EDT Please, keep the sling on at all times. Take Tylenol and ibuprofen as needed for pain, avoid any activities that may exacerbate your injury. Apply cold compresses. Follow-up with outpatient orthopedic surgery clinic for further management. Return to the emergency department for any new or concerning symptoms. documented in this encounter Medications at Time of Discharge [...] 10/02/2024 gabapentin (NEURONTIN) 600 MG tablet 05/25/2022 ibuprofen (ADVIL,MOTRIN) 600 MG tablet Take 1 tablet (600 mg total) by mouth every 6 (six) hours as needed for pain (specific location in comments). 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 Impaired fasting glucose Corns Iron deficiency Hypercholesterolemia Squamous cell carcinoma of right lung Iron deficiency anemia, unspecified Past Medical History: Diagnosis Date Bilateral knee pain L>R BPH (benign prostatic hyperplasia) ON MED WITH GOOD CONTROL Bursitis 2013 septic bursitis and cellulitis, left knee prepatella Cardiomyopathy [place] Gold [place] [facility] [place] pain of left knee Continuous positive airway pressure dependence will use summer 2021 Depression on med with good control 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; sees Dr Carbajal yearly([place]) Gastroesophageal reflux disease I don't have acid reflux per se, but I did have gastrititis a few years ago x2 so I take Omeprazole Hx of gastritis Joint pain LBBB (left bundle branch block) 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; 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; 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 [facility] [phone] Osteoarthritis Pure hypercholesterolemia Restless leg syndrome, controlled controlled with gabapentin Seizure 1998, 1999 x2 well controlled on med - none since 1999 Sleep apnea uses dental device Snoring many years Squamous cell carcinoma lung, left had removed Wears eyeglasses Past Surgical History: Procedure Laterality Date BRONCHOSCOPY FLEXIBLE N/A 2021 Performed by Alvino Peralta MD at [facility] [place] CATARACT EXTRACTION Left 06/2020 COLONOSCOPY COLONOSCOPY N/A 02/24/2022 Performed by Morales Milian MD at [facility] ENDOSCOPY KNEE ARTHROPLASTY Bilateral partial KNEE ARTHROSCOPY W/ MENISCAL REPAIR Right 05/[address] Mandel at [facility] LASIK Bilateral 2000 LEFT UNICONDYLAR KNEE ARTHROPLASTY Left 12/21/2018 Performed by Papo Asif MD at [facility] OR REPLACEMENT UNICONDYLAR JOINT KNEE Left 12/21/[address] Papo Asif at [facility] RIGHT ARTHROPLASTY UNICONDYLAR KNEE Right 09/18/2020 Performed by Papo Asif MD at [facility] OR SEGMENTECTOMY LUNG WITH MEDIASTINAL LYMPH NODE DISECTION Right 2021 Performed by Alvino Peralta MD at [facility] [place] SKIN BIOPSY basal cell Family History Problem Relation Age of Onset Colon cancer Mother Dementia Mother Bone cancer Father Prostate cancer Father Dementia Father Heart attack Brother 2 brothers Social History Tobacco Use Smoking status: Former Current packs/day: 0.00 Average packs/day: 1 pack/day for 5.0 years (5.0 ttl pk-yrs) Types: Cigarettes Start date: 11/24/1968 Quit date: 06/26/1973 Years since quittin.7 Smokeless tobacco: Never Vaping Use Vaping status: never used Substance Use Topics Alcohol use: No Drug use: No No current facility-administered medications for this encounter. Current Outpatient Medications Medication Sig Dispense Refill Last Dispense ARIPiprazole (ABILIFY) 2 MG tablet Take 2 mg by mouth daily. Unknown (patient-reported) clonazePAM (KLONOPIN) 0.5 MG tablet Take 1 tablet (0.5 mg total) by mouth nightly at bedtime. 10 tablet 0 Unknown (outside pharmacy) dapagliflozin propanediol (FARXIGA) 10 mg tablet Take 1 tablet (10 mg total) by mouth daily. 90 tablet 3 Unknown (outside pharmacy) eplerenone (INSPRA) 25 MG tablet TAKE ONE-HALF TABLET BY MOUTH ONCE DAILY 45 tablet 3 Unknown (outside pharmacy) gabapentin (NEURONTIN) 600 MG tablet Unknown (patient-reported) metoprolol succinate (TOPROL-XL) 25 MG 24 hr tablet Take 0.5 tablets (12.5 mg total) by mouth daily. 45 tablet 3 Unknown (outside pharmacy) omeprazole (PRILOSEC) 20 MG capsule Take 20 mg by mouth daily. Unknown (patient-reported) OXcarbazepine (TRILEPTAL) 300 MG tablet Take 1 tablet (300 mg total) by mouth 2 (two) times a day. Unknown (no pharmacy) rosuvastatin (CRESTOR) 20 MG tablet take one tablet by mouth every day 90 tablet 3 Unknown (outsidepharmacy) sacubitriL-valsartan (ENTRESTO) 24-26 mg per tablet Take 1 tablet by mouth 2 (two) times a day. 180tablet 3 Unknown (outside pharmacy) sildenafiL (VIAGRA) 100 mg tablet Take 1 tablet (100 mg total) by mouth daily as needed. 20 tablet 0 Unknown (outside pharmacy) tamsulosin (FLOMAX) 0.4 mg Cap take 1 capsule by mouth every day 90 capsule 3 Unknown (outside pharmacy) tretinoin (RETIN-A) 0.1 % cream Apply 1 application topically nightly. 2 Unknown (patient-reported) venlafaxine (EFFEXOR-XR) 150 MG 24 hr capsule Take 1 capsule (150 mg total) by mouth nightly at bedtime. 5 capsule 0 Unknown (outside pharmacy) Vitals BP 138/88 Pulse 77 Temp 36.6 ??C (97.9 ??F) (Temporal) Resp 16 Ht 180.3 cm (5' 11 ) Wt 83.5 kg (184 lb) SpO2 98% BMI 25.66 kg/m?? Pre-Sedation Evaluation Purpose of Sedation: Dislocation Reduction ROS/Med History General Patient has no history of anesthetic complications. Cardiovascular Patient has congestive heart failure. Patient does not have orthopnea. Pulmonary Pulmonary review of systems negative except as noted below. GI/Hepatic/Renal GI/hepatic/renal review of systems negative except as noted below. Chronic renal disease: Trileptal.Neuro/Psych Patient has a history of seizures. Seizure medications prescribed. Endo/Metabolic/Other Negative endo/other ROS. Hematologic Hematology review of systems negative except as noted below. Musculoskeletal Musculoskeletal review of systems negative except as noted below. C-spine cleared by surgeon Physical Exam NPO Status: Yes Hours NPO: 12 Airway: Mallampati score is I. Neck ROM is Full. Mouth opening is normal. TM distance is Normal. Dental: The patient has dental implants, bridges or caps present. Cardiovascular: The cardiovascular exam is normal. Pulmonary: The pulmonary exam is normal. Neurological: The neurological exam is normal. Sedation Plan ASA Score: 2 Results and Data Reviewed: I personally reviewed the lab results. I personally reviewed the radiology results. Sedation Plan: Patient will be placed on diesel scoop operator, continuous pulse oximetry and continuous capnography. Intravenous access will be maintained. Bag valve mask, oxygen and suction will be available at the bedside. Emergency airway equipment will be immediately available. Medication Plan: Propofol 0.05-2mg/kg IV x1 followed by 0.05-1mg/kg every 2 minutes PRN to achieve deep sedation. Informed Consent: Informed consent obtained from: patient Discharge Plan: Discharge Plan: Has a ride with responsible adult documented in this encounter Procedure Notes Only the most recent of 2 notes is shown. * Riya Bruce PA-C - 02/27/2025 2:10 AM EDTAssociated Order(s): Orthopedic Injury Treatment/Splint/Cast Application Procedure Orthopedic Injury Treatment/Splint/Cast Application Date/Time: 02/27/2025 3:34 AM Performed by: Riya Bruce PA-C Authorized by: Dusty Hylton MD, DPHIL Injury Injury location: Shoulder Location details: Left shoulder Injury type: Dislocation Dislocation type: posterior Chronicity: Recurrent Hill-Sachs deformity?: Yes Pre-procedure assessment Neurovascular status: Neurovascularly intact Distal perfusion: normal Neurological function: normal Range of motion: reduced Local anesthesia used?: No Procedure details Manipulation performed?: Yes Reduction method: Traction and counter traction Reduction successful?: Yes Confirmation: Reduction confirmed by x-ray Immobilization: Sling Post-procedure assessment Neurovascular status: Neurovascularly intact Distal perfusion: normal Neurological function: normal Range of motion: improved Patient tolerance: Patient tolerated the procedure well with no immediate complications Cosigned by Dusty Hylton MD, DPHIL at 02/27/2025 2:18 PM EDT Associated attestation - Dusty Hylton MD, DPHIL - 02/27/2025 2:18 PM EDT IDusty MD, DPHIL, the Attending Physician was present during the entire procedure. documented in this encounter ED Notes * Lisa Mg RN - 02/27/2025 1:45 AM EDT ED Discharge Nursing Note Pt d/c instructions reviewed with no questions or concerns, pt in NAD, breathing even and unlabored, ambulates with a steady gait * Riya Bruce PA-C - 02/27/2025 12:57 AM EDT Patient was signed out to me at shift change disposition pending shoulder reduction. HPI and physical exam as above. I discussed procedure and procedural sedation with the patient. Obtain consent. Procedure was performed under supervision of . Patient tolerated procedure well. Postreduction x-ray showed No dislocation. Comminuted Hill-Sachs fracture is again visualized. Patient was discharged with return precautions and advised to follow-up outpatient with Ortho clinic for further management. * Aisha Bradford RN - 02/26/2025 2:33 PM EDT Pt here for eval of L shoulder pain. Pt had a dislocation and reduction here. Pt popped his shoulder out again the next morning. He has CT scan 2 days ago. Pt is waiting to f/o with ortho next week. CMS+ RUE. * Ruthy Witt PA-C - 02/26/2025 2:25 PM EDT Chief Complaint Chief Complaint Patient presents with Shoulder Pain History of Present Illness 79 y/o M presents for evaluation of shoulder pain. The patient was seen here in the emergency room on 02/18 and diagnosed with a posterior dislocation of left shoulder and an impaction fracture of the anterior humeral head s/p seizure. This was reduced and he was placed in an abduction splint. He says that he dislocated the shoulder again the following morning after he stretched while waking up. He was not wearing the sling at this time. He was seen at the orthopedic clinic at this time and ordered for a CT scan to evaluate the bone structure. The orthopedic note mentions that due to the severity of the fracture and recurrent dislocation, a reverse total shoulder arthroplasty is planned. The patient was scheduled to follow-up with Dr. Javed to discuss surgical options. He has not met with Dr. Javed yet. He had a CT done yesterday which showed a comminuted minimally displaced impacted fracture of the anterior medial humeral head and posterior subluxation of the humeral head. He presents here today hoping that the dislocation can be reduced. He says that he has an appointment with an [facility] surgeon next week. Unless otherwise specified, I have reviewed and agree with the triage and nursing notes. ROS A ten point review of systems was negative except what was noted in the HPI. 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; sees Dr Carbajal yearly([facility]) Gastroesophageal reflux disease I don't have acid reflux per se, but I did have gastrititis a few years ago x2 so I take Omeprazole Hx of gastritis Joint pain LBBB (left bundle branch block) 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; 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; 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 [facility] [phone] Osteoarthritis Pure hypercholesterolemia Restless leg syndrome, controlled controlled with gabapentin Seizure 1998, 1999 x2 well controlled on med - none since 1999 Sleep apnea uses dental device Snoring many years Squamous cell carcinoma lung, left had removed Wears eyeglasses Past Surgical History Past Surgical History: Procedure Laterality Date BRONCHOSCOPY FLEXIBLE N/A 2021 Performed by Alvino Peralta MD at [facility] [place] CATARACT EXTRACTION Left 06/2020 COLONOSCOPY COLONOSCOPY N/A 02/24/2022 Performed by Morales Milian MD at [facility] ENDOSCOPY KNEE ARTHROPLASTY Bilateral partial KNEE ARTHROSCOPY W/ MENISCAL REPAIR Right 05/[address] Mandel at [facility] LASIK Bilateral 2000 LEFT UNICONDYLAR KNEE ARTHROPLASTY Left 12/21/2018 Performed by Papo Asif MD at [facility] OR REPLACEMENT UNICONDYLAR JOINT KNEE Left 12/21/[address] Papo Asif at [facility] RIGHT ARTHROPLASTY UNICONDYLAR KNEE Right 09/18/2020 Performed by Papo Asif MD at [facility] OR SEGMENTECTOMY LUNG WITH MEDIASTINAL LYMPH NODE DISECTION Right 2021 Performed by Alvino Peralta MD at [facility] [place] SKIN BIOPSY [employer] [place] Medications Prior to Admission medications Medication Sig ARIPiprazole (ABILIFY) 2 MG tablet 2 mg, Daily clonazePAM (KLONOPIN) 0.5 MG tablet 0.5 mg, Oral, Nightly dapagliflozin propanediol (FARXIGA) 10 mg tablet 10 mg, Oral, Daily eplerenone (INSPRA) 25 MG tablet 12.5 mg, Oral, Daily gabapentin (NEURONTIN) 600 MG tablet No dose, route, or frequency recorded. metoprolol succinate (TOPROL-XL) 25 MG 24 hr tablet 12.5 mg, Oral, Daily omeprazole (PRILOSEC) 20 MG capsule 20 mg, Daily OXcarbazepine (TRILEPTAL) 300 MG tablet 300 mg, Oral, 2 times daily rosuvastatin (CRESTOR) 20 MG tablet 20 mg, Oral, Daily sacubitriL-valsartan (ENTRESTO) 24-26 mg per tablet 1 tablet, Oral, 2 times daily sildenafiL (VIAGRA) 100 mg tablet 100 mg, Oral, Daily as needed tamsulosin (FLOMAX) 0.4 mg Cap 0.4 mg, Oral, Every morning tretinoin (RETIN-A) 0.1 % cream Nightly venlafaxine (EFFEXOR-XR) 150 MG 24 hr capsule 150 mg, Oral, Nightly Allergies Allergies Allergen Reactions Dilantin [Phenytoin Sodium Extended] Flushing Trouble breathing and flushing Phenytoin Other Reaction(s): Other (See Comments) FLUSHED Social and Family History Social History Tobacco Use Smoking status: Former Current packs/day: 0.00 Average packs/day: 1 pack/day for 5.0 years (5.0 ttl pk-yrs) Types: Cigarettes Start date: 11/24/1968 Quit date: 06/26/1973 Years since quittin.7 Smokeless tobacco: Never Substance Use Topics Alcohol use: No Social History Substance and Sexual Activity Drug Use No Family History Problem Relation Age of Onset Colon cancer Mother Dementia Mother Bone cancer Father Prostate cancer Father Dementia Father Heart attack Brother 2 brothers Physical Exam Vital Signs: ED Triage Vitals [02/26/25 1435] Encounter Vitals Group BP 119/70 Systolic BP Percentile Diastolic BP Percentile Heart Rate 88 Respiratory Rate 16 Temperature 36.6 ??C (97.9 ??F) Temp Source Temporal SpO2 97 % Weight 184 lb Height 5' 11 Head Circumference Peak Flow Pain Score Pain Loc Pain Education Exclude from Growth Chart Physical Exam Vitals and nursing note reviewed. Constitutional: General: He is not in acute distress. HENT: Head: Normocephalic. Nose: Nose normal. Mouth/Throat: Pharynx: Oropharynx is clear. Eyes: Conjunctiva/sclera: Conjunctivae normal. Cardiovascular: Rate and Rhythm: Normal rate. Pulses: Normal pulses. Pulmonary: Effort: Pulmonary effort is normal. Musculoskeletal: Comments: Left upper extremity is in an abduction splint. Upon removing the splint, there is normalgrip strength, sensation, and perfusion. Limited range of motion. Skin: General: Skin is warm and dry. Neurological: Mental Status: He is alert. Laboratory Testing No results found for this visit on 02/26/25. Radiology Testing XR Shoulder (Left) (Results Pending) [facility] Assessment and Plan: 79 y/o M presenting for evaluation of recurrent left posterior shoulder dislocation in setting of impaction fracture to the humeral head. He is hemodynamically stable. Physical exam as documented above. Reviewed CT from 02/25 with findings as stated above. Urrutia technique attempted with scapular manipulation. Assistance from Dr. Ruano. Following this attempt, patient was able to range his shoulder more. X-ray is in process to ensure reduction. Care will be signed out pending this. If reduced, will be discharged in sling with orthopedic follow-up. Category 2 and 3: Independent Interpretation of Tests, Consideration of Tests, or External Discussion of Results: Radiology: Radiology studies were independently interpreted. Clinical Impressions as of 02/26/251926 Posterior dislocation of left shoulder joint, initial encounter Clinical Impression Diagnosis Description Comment Final diagnosis Posterior dislocation of left shoulder joint, initial encounter Posterior dislocation of left shoulder joint, initial encounter -- Disposition: Signed out Ruthy Witt PA-C 02/26/251926 * Tete Ruano MD - 02/26/2025 2:25 PM EDT ED Course Clinical Impressions as of 02/26/252138 Posterior dislocation of left shoulder joint, initial encounter Assessment and Plan: We did do manual reduction with him technique and scapular manipulation as well as some traction patient tolerated actually very well just with relaxation and massage of the muscles for reducing stress there was obvious movement of shoulder however patient is still having pain which is understandable with acute fracture as well. Patient was able to mobilize the shoulder better afterwards he is able to reach across to opposite shoulder and up to nose with better mobility. Prerelocation patient had normal CSM's normal axillary radial and medial and ulnar nerves intact with normal strength and sensation. Did discuss risks of possible procedure with propofol if this did not completely reduce the shoulder. Medically I do feel markedly better the patient is able to mobilize the shoulder better than previous prior to Renan technique and procedure here. We are currently waiting for radiology's final read to make sure that it is in with patient's complicated history of posterior shoulder dislocation procedure about 2 weeks ago also with fracture and has been out now for approximately a week. Patient was placed in sling will need swath was instructed not to raise his hand above his head patientwill need Ortho for follow-up. If x-ray is not definitive possibly axillary views will need to be pe rformed or CT scan tonight if shoulder is not reduced patient may need procedural sedation for retry at reduction. Patient signed out at change of shift pending final radiology x-ray read of left shoulder I did independently interpret it does appear to be reduced on my exam however again waiting for final x-ray read. Attestation: I saw the patient as part of a shared visit with the advanced practice practitioner. I personally made or approved the management plan and take responsibility for the patient management. Tete Ruano MD 02/26/252143 documented in this encounter Plan of Treatment Upcoming Encounters Date Type Department Care Team (Late st Contact Info) Description 12/18/2024 Procedure Pass [facility] [address] [address] 03/05/2025 9:00 AM EDT Office Visit [facility] Orthopedics & Sports Medicine [address] [place] [id number] Gab Javed DO 4 [facility] [place] [address] [email or web address] 03/07/2025 10:00 AM EDT Office Visit [facility] Sports [address] [address] Andre Zarate MD, SHEMAR [address] [address] [email or web address] 03/31/2025 8:00 AM EDT Telemedicine [facility] [place] Service [address] [facility], 8th Floor, [address] [place] [address] Lucia Samuel MD 55 [facility] Department of [email or web address] [place] [address] [email or web address] 04/11/2025 2:00 PM EDT Office Visit [facility] Heart Failure & Transplantation [address] [facility], 5th Floor, [address] [place] [address] Raza Pan MD 55 [facility] [address] [place] [address] [email or web address] 10/01/2025 10:30 AM EDT Appointment [facility] Scan [address] [address] Byron Beebe DO [address] [place] [address] [email or web address] 10/08/2025 10:30 AM EDT Office Visit [facility] [place] [place] [address] [place] [phone] Byron Beebe, [address] [place] [address] [email or web address] documented as of this encounter Procedures Procedure Name Priority Date/Time Associated Diagnosis Comments SEDATION Routine 02/27/2025 2:19 PM EDT ORTHOPEDIC INJURY TREATMENT Routine 02/27/2025 3:34 AM EDT XR SHOULDER 2 VIEWS (LEFT) Routine 02/27/2025 12:21 AM EDT XR SHOULDER 2 VIEWS (LEFT) Routine 02/26/2025 7:59 PM EDT documented in this encounter Results * Sedation (02/27/2025 2:19 PM EDT) Narrative Dusty Hylton MD, RONANL - 02/27/2025 2:19 PM EDT Dusty Hylton MD, DPROSIEL 02/27/2025 2:20 PM Sedation Date/Time: 02/27/2025 2:19 PM Performed by: Dusty Hylton MD, RONANL Authorized by: Dusty Hylton MD, DPROSIEL Consent obtained: Yes Time out: Immediately prior to the procedure a time-out was called Indications: Procedure performed: Fracture reduction Pre-sedation assessment: Pre-sedation evaluation completed; I examined and reassessed this patient immediately prior to administration of sedation Pre sedation evaluation completed by: Dusty Flores MD, Ronanl Procedure details (see MAR for exact dosages): I was present for the length of the entire sedation timeframe from first injection and continuously throughout for 20 minutes Intended level of sedation: Deep Preoxygenation: Nasal cannula Sedation: Propofol Intra-procedure monitoring: Blood pressure monitoring, continuous capnometry, frequent LOC assessments, frequent vital sign checks, continuous pulse oximetry and diesel scoop operator Intra-procedure events: none Post-procedure details: Attendance: constant attendance by certified staff until patient recovered Recovery: patient returned to pre-procedure baseline for mental status and respiratory function Post-sedation assessments completed and reviewed: airway patency, cardiovascular function, mental status and respiratory function Patient tolerance: Tolerated well, no immediate complications Dusty Hylton MD, MADONNA[facility] TION ORDERABLES - ONCE Final Result * ORTHOPEDIC INJURY TREATMENT (02/27/2025 3:34 AM EDT) Narrative Dusty Hylton MD, SOREN - 02/27/2025 3:34 AM EDT Dusty Hylton MD, SOREN 02/27/2025 2:18 PM Orthopedic Injury Treatment/Splint/Cast Application Date/Time: 02/27/2025 3:34 AM Performed by: Riya Bruce PA-C Authorized by: Dusty Hylton MD, SOREN Injury Injury location: Shoulder Location details: Left shoulder Injury type: Dislocation Dislocation type: posterior Chronicity: Recurrent Hill-Sachs deformity?: Yes Pre-procedure assessment Neurovascular status: Neurovascularly intact Distal perfusion: normal Neurological function: normal Range of motion: reduced Local anesthesia used?: No Procedure details Manipulation performed?: Yes Reduction method: Traction and counter traction Reduction successful?: Yes Confirmation: Reduction confirmed by x-ray Immobilization: Sling Post-procedure assessment Neurovascular status: Neurovascularly intact Distal perfusion: normal Neurological function: normal Range of motion: improved Patient tolerance: Patient tolerated the procedure well with no immediate complications us Dusty Hylton MD, RONANL PROCEDURE/MINOR S URGICAL ORDERABLES Final Result * XR SHOULDER 2 VIEWS (LEFT) (02/27/2025 12:21 AM EDT) Anatomical Region Laterality Modality Shoulder Left Computed Radiogr aphy 02/27/2025 1:49 AM EDT Impressions 02/27/2025 1:50 AM EDT FINDINGS/IMPRESSION: No dislocation. Comminuted Hill-Sachs fracture is again visualized. Narrative 02/27/2025 1:50 AM EDT XR SHOULDER 2 OR MORE VIEWS (LEFT) Referring clinician's provided indication for this examination in Epic: Pain COMPARISON: Shoulder radiographs 02/26/2025, CT shoulder 02/25/2025. Procedure Note Papo Claudio MD - 02/27/2025 XR SHOULDER 2 OR MORE VIEWS (LEFT) Referring clinician's provided indication for this examination in Epic:Pain COMPARISON: Shoulder radiographs 02/26/2025, CT shoulder 02/25/2025. IMPRESSION: FINDINGS/IMPRESSION: No dislocation. Comminuted Hill-Sachs fracture is again visualized. us Riya Bruce PA-C IMG XR UPPER EXTREMITY Lis l Result * XR SHOULDER 2 VIEWS (LEFT) (02/26/2025 7:59 PM EDT) Anatomical Region Laterality Modality Shoulder Left Computed Radiogr aphy 02/26/2025 9:48 PM EDT Impressions 02/26/2025 9:51 PM EDT Persistent left posterior shoulder dislocation with large reverse Hill-Sachs impaction fracture. Narrative 02/26/2025 9:51 PM EDT XR SHOULDER 2 OR MORE VIEWS (LEFT) Referring clinician's provided indication for this examination in Epic: Pain COMPARISON: CT SHOULDER WITHOUT CONTRAST (LEFT) FINDINGS: Persistent left posterior shoulder dislocation with large reverse Hill-Sachs impaction fracture better delineated on prior CT. Similar mild widening of the AC joint with background degenerative changes and chronic appearing intra-articular body, possibly age-indeterminate AC joint injury. Procedure Note Joey Hoang MD - 02/26/2025 XR SHOULDER 2 OR MORE VIEWS (LEFT) Referring clinician's provided indication for this examination in [facility]:Pain COMPARISON: CT SHOULDER WITHOUT CONTRAST (LEFT) FINDINGS: Persistent left posterior shoulder dislocation with large reverseHill-Sachs impaction fracture better delineated on prior CT. Similar mildwidening of the AC joint with background degenerative changes and chronicappearing intra-articular body, possibly age-indeterminate AC jointinjury. IMPRESSION: Persistent left posterior shoulder dislocation with large reverseHill-Sachs impaction fracture. Ruthy Witt PA-C IMG XR UPPER EXTREMITY Final Result documented in this encounter Visit Diagnoses Diagnosis Posterior dislocation of left shoulder joint, initial encounter- Primary documented in this encounter Administered Medications Inactive Administered Medications - up to 3 most recent administrations Medication Order MAR Action Action Date Dose Rate Site acetaminophen (TYLENOL) tablet 975 mg 975 mg, Oral, Once, On Mon02/26/25 at 2030, For 1 dose Given 02/26/2025 9:38 PM EDT 975 mg ibuprofen (ADVIL,MOTRIN) tablet 600 mg 600 mg, Oral, Once, On Ileana 02/27/25 at 0100, For 1 dose Given 02/27/2025 1:27 AM EDT 600 mg propofol (DIPRIVAN) injection Code/trauma/sedation continuous med, Starting on Mon02/26/25 at 2352 New Bag 02/26/2025 11:54 PM EDT 20 mg Right Arm New Bag 02/26/2025 11:52 PM EDT 40 mg R ight Arm documented in this encounter Active and Recently Administered Medications Times are shown in EDT. Scheduled Medication Order 02/25/2025 02/26/2025 02/27/2025 acetaminophen (TYLENOL) tablet 975 mg (COMPLETED) 975 mg, Oral, Once, On Mon02/26/25 at 2030, For 1 dose 2137 (Given - Provider: Lisa Mg, ADA) ibuprofen (ADVIL,MOTRIN) tablet 600 mg (COMPLETED) 600 mg, Oral, Once, On Ileana 02/27/25 at 0100, For 1 dose 0127 (Given - Provid er: Lisa Mg RN) PRN Medication Order 02/25/2025 02/26/2025 02/27/2025 propofol (DIPRIVAN) injection (COMPLETED) Code/trauma/sedation continuous med, Starting on Mon02/26/25 at 2352 2352 (New Bag - Provider: Riya Bruce PA-C)8457 (New Bag - Provider: Riya Bruce PA-C) 0129 (Stopped - Provider: Asuncion Allen RN) documented in this encounter Additional Health Concerns Assessment Noted Time PHQ-2 Depression Total Score: 0 01/04/20 22 2:34 PM EDT documented as of this encounter Care Teams C.O.D. Biller Relationship Specialty Start Date End Date Harry Moyer MD 243 [facility] [address] [place] [address] [email or web address] PCP - General Internal Medicine 09/26/24 Ronn Harris MD [address] [id number] [email or web address] Historical LMR Provider 04/10/17 Debra Rasheed MD [address] [place] [address] [email or web address] Historical LMR Provider 04/10/17 Adwoa Mehta MD 4 [facility] Orthopedics & [facility] Medicine, [facility] [place] [address] Historical LMR Provider 04/10/17 Byron Beebe DO [address] [place] [address] [email or web address] Primary Oncologist Hematology and Oncology 01/14/22 documented as of this encounter Additional Source Comments The information contained in this document represents components of the legal health record. It is not the complete legal health record.[facility]
--- NOTE | 2025-02-27 14:15 | A.OFFPSYCH_ITS ---
Intake Intake Visit Reasons: depression Allergies phenytoin (From Dilantin) Allergy (Intermediate, Verified 06/30/22 16:01) Difficulty Breathing HPI- Psychiatric Chief Complaint: depression HPI Narrative: Pt seen with went to [facility] had sz dislocated shoulder at [facility] after sz they has d/c klonapin and had sz he had been drinking over 1 1/2 yrs victoria had also taken wifes adderall he initially denied has been going to [facility] they did start seeing therapist together pt was also taking gummies to disengage has been sober for short period of time continues on Effexor and Abilify clonazepam was discontinued at rehab setting restarted after 2 seizures in rehab setting Past Psychiatric History: The patient has a history of recurrent depression and anxiety history of 1-2 seizures many years ago sees Dr. Chavira occasionally Mental Status Exam Mental Status Exam Narrative: Patient seen telehealth with his . Patient depressed constricted future oriented denies active SI. He is quite concerned over what is going on his marriage his quite concerned that he was not on his regarding his substance use which included marijuana alcohol and using Adderall had. Patient states he has been sober insight and judgment do seem impaired no hallucinations or delusional material focuses on recent events Assessment and Plan Assessment & Plan (1) Generalized anxiety disorder: Status: Acute Code(s): F41.1 - Generalized anxiety disorder (2) Cardiomyopathy: Status: Acute Code(s): I42.9 - Cardiomyopathy, unspecified (3) LBBB (left bundle branch block): Status: Acute Code(s): I44.7 - Left bundle-branch block, unspecified (4) Major depression, recurrent, chronic: Status: Acute Code(s): F33.9 - Major depressive disorder, recurrent, unspecified Plan Continue present plan of care including gabapentin clonazepam Effexor Abilify for depression. Encourage a and sponsor. Discussed option of partial hospital program given patient had to drop out of rehab program secondary to seizure Patient's acknowledgement of alcohol use in ongoing way is particularly showing a lack of concern been cardiomyopathy seizure disorder follow-up 1-2 weeks recommended PHP Counseling and coordination of Care Pt. Self Management counseling: Breathing and Substance abuse tx adhere Details-Self Mgmt counseling: Patient under significant stress with now open addiction issues and its impact on his marriage Medication management counseling: Effectiveness, Side effects and Dosing range Diagnosis and Prognosis Counseling: Problematic behaviors secondary to diagnosis and Adequacy of current interventions Details-Diagnosis/Prognosis counseling: Discussed option of PHP dual diagnosis program Details: I spent [] minutes reviewing the record, seeing the patient and documenting in the medical record. Counseling provided to the patient/caregiver as outlined below. Addressed patient/caregiver concerns regarding current medication regime including effective adherence. Addressed patient/caregiver concerns regarding diagnosis and prognosis including accuracy of diagnosis, prognosis over time, impact of diagnosis. Addressed patient/caregiver concerns regarding impact of recent stressors. 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
--- OUTSIDE RECORDS SUMMARY | 2025-02-27 15:41 | XMS_ITS | Encounter Summary ---
Author Organization [facility] Address [facility] [address] [facility] [address] [place] [address] Phone Care Team Providers Care Senior Medical Writer Name Role Phone Bea Monroy Claudy PEDRO Unavailable Aisha TaborP Unavailable [phone] Ronn Harris MD Unavailable Debra Rasheed MD Unavailable Adwoa Mehta MD Unavailable [phone] Debra Rasheed MD Unavailable [phone] Malaika Hidalgo MD Primary Care Provider [phone] Byron Beebe DO Unavailable Malaika Hidalgo MD Unavailable [phone] Unknown, Unknown Primary Care Provider Malaika Parham MD Unavailable [phone] Harry Moyer MD Primary Care Provider + Encounter Details Date Type Department Care Team (Late st Contact Info) Description 02/18/2022 Procedure Pass [facility], Ct Scan - [address] [address] Social History Tobacco Use Types Packs/Day Years [...] Answer Date Recorded Are you interested in help w ith more adult education (for example, completing high school, GED, job training, learning the [place] language, technical skills, or developing parenting skills)? No 06/26/2021 Food Answer Date Recorded Within the past 6 months we worried whether our food would run out before we got money to buy more. Never True 06/26/2021 Within the past 6 months the food we bought just didn't last and we didn't have enough money to get more. Never True Residential Stability Answer Date Recor ded What is your housing situation today? I have adonay sing 06/26/2021 How many times have you move d in the past 12 months? Zero (I did not move) 06/26/2021 Paying for Meds Answer Date Recorded Do you have trouble paying for medicines? No 06/26/2021 Paying Utility Bills Answer Date Record ed Do you have trouble paying your heating or elect ricity bill? No 06/26/2021 Transportation Answer Date Recorded Has the lack of transportati on kept you from medical appointments or from getting medications? No 06/26/2021 Unemployment Answer Date Recorded Are you currently unemployed or working on a part-time or temporary basis, and looking for work? No 06/26/2021 Sex and Gender Information Value Date Recorded Sex Assigned at Male 08/15/2020 10:42 AM EST Legal Sex Male 1:14 PM EDT Gender Identity Male 08/15/2020 10:42 AM EST Sexual Orientation Straight 08/15/2020 10 :42 AM EST documented as of this encounter Plan of Treatment Upcoming Encounters Date Type Department Care Team (Late st Contact Info) Description 12/18/2024 Procedure [facility] Scan - [facility] [address] [place] [address] 03/05/2025 9:00 AM EDT Office Visit [facility] Orthopedics & Sports Medicine [address] [place] [address] [phone] Gab Javed, DO 4 [facility] Orth[facility]ics & [facility] [place] [address] [email or web address] 03/07/2025 10:00 AM EDT Office Visit [facility] [address] [place] [address] Andre Zarate MD, SHEMAR [address] [address] [email or web address] 03/31/2025 8:[address] [facility] [address] [facility], 8th Floor, [address] [place] [address] Lucia Samuel MD 55 [facility] Department of [id number] [place] [address] [email or web address] 04/11/2025 2:00 PM EDT Office [facility] Heart Failure & Transplantation 32 [facility], 5th Floor, [address] [place] [address] Raza Pan MD [address] [address] [email or web address] 10/01/2025 10:30 AM EDT Appointment [facility], Ct Scan - [address] [address] Byrno Beebe, DO [address] [place] [phone] [email or web address] 10/08/2025 10:30 AM EDT Office Visit [facility] at [address] [address] Byron Beebe, DO 30 [place] [address] [email or web address] documented as of this encounter Visit Diagnoses Not on filedocumented in this encounter Additional Health Concerns Assessment Noted Time PHQ-2 Depression Total Score: 0 01/04/20 22 2:34 PM EDT documented as of this encounter Care Teams Senior Medical Writer Relationship Specialty Start Date End Date Malaika Hidalgo MD 234 [facility] 7 [place] [address] [email or web address] PCP - General Family Medicine 01/14/22 01/16/24 Unknown, Veena, PCP - General 01/17/24 09/25/24 Harry Moyer MD [address] [place] [id number] [email or web address] PCP - General Internal Medicine 09/26/24 Bea Monroy DO 234 [facility] [address] [place] [address] [email or web address] Historical LMR Provider 04/10/17 01/16/24 Aisha Tabor FNP 234 [facility] 7 [place] [address] [email or web address] Historical LMR Provider 04/10/17 01/16/24 Ronn Harris MD 234 [facility] [address] [place] [phone] [email or web address] Historical LMR Provider 04/10/17 Debra Rasheed MD 234 [facility] 7 [place] [address] Historical LMR Provider 04/10/17 Adwoa Mehta MD [address] [place] [address] Orthopedics & Sports Medicine, [place] [address] Historical LMR Provider 04/10/17 Debra Rasheed MD [address] [place] [address] 7 [place] [address] Insurance Assigned Provider 01/27/18 10/01/22 Byron Beebe DO [address] [place] [phone] [email or web address] Primary Oncologist Hematology and Oncology 01/14/22 Malaika Hidalgo MD [address] [place] [address] 7 [place] [address] Insurance Assigned Provider 09/30/23 01/16/24 Malaika Hidalgo MD [address] [place] [address] 7 [place] [address] Insurance Assigned Provider 09/30/23 07/01/24 documented as of this encounter Additional Source Comments The information contained in this document represents components of the legal health record. It is not the complete legal health record.[facility]
--- OUTSIDE RECORDS SUMMARY | 2025-02-27 15:41 | XMS_ITS | Encounter Summary ---
Author Organization [facility] Address [address] [place] [address] [place] [address] Phone Care Team Providers Care Electrical Continuity Tester Name Role Phone Debra Rasheed MD Primary Care Provider Marielena Llanes AS400 PROGRAMMER ANALYST Unavailable Real Welch DO Unavailable Bea Monroy DO Unavailable Sarah Long AS400 PROGRAMMER ANALYST Unavailable Gab Garrett MD Unavailable Gab Javed DO Unavailable Aisha Tabor INSURANCE WRITER Unavailable Ronn Harris MD Unavailable Tess Chan AS400 PROGRAMMER ANALYST Unavailable Debra Rasheed MD Unavailable Adwoa Mehta MD Unavailable Pranav Harris MD Unavailable Ronn Shea MD Unavailable Debra Rasheed MD Unavailable Malaika Hidalgo MD Primary Care Provider [phone] Byron Beebe DO Unavailable Malaika Hidalgo MD Unavailable [phone] Unknown, Unknown Primary Care Provider Malaika Parham MD Unavailable [phone] Harry Moyer MD Primary Care Provider + Encounter Details Date Type Department Care Team (Late st Contact Info) Description 02/02/2021 Procedure Pass [facility] - MRI [address] [facility], 6th [place] [address] Social History Tobacco Use Types Packs/Day Years Used Date Smoking Tobacco: Former Cigarettes 1 5 969 - 1973 Smokeless Tobacco: Never Alcohol Use Standard Drinks/Week Comments No 0 (1 standard drink = 0.6 oz pur e alcohol) Sex and Gender Information Value Date Recorded Sex Assigned at Male 08/15/2020 10:42 AM EST Legal Sex Male 1:14 PM EDT Gender Identity Male 08/15/2020 10:42 AM EST Sexual Orientation Straight 08/15/2020 10 :42 AM EST documented as of this encounter Plan of Treatment Upcoming Encounters Date Type Department Care Team (Late st Contact Info) Description 12/18/2024 Procedure Pass [facility], Ct Scan - [address] [address] 03/05/2025 9:00 AM EDT Office Visit [facility] Medical [facility] Orthopedics & Sports Medicine [address] [place] [address] Gab Javed DO [address] [place] [address] Orthopedics & Sports [place] [address] 03/07/2025 10:00 AM EDT Office Visit [facility] Sports Medicine [address] [place] [address] Andre Zarate MD, SHEMAR [address] [address] 03/31/2025 8:00 AM EDT Telemedicine [facility] Epilepsy Service 55 [facility], 8th Floor, [address] [place] [address] Lucia Samuel MD 55 [facility] Department of TopuuicnnCPND653 [place] [address] [email or web address] 04/11/2025 2:00 PM EDT Office Visit [facility] Heart Failure & Transplantation [address] [facility], 5th Floor, [address] [place] [address] Raza Pan MD 55 [facility] 5B [place] [address] [email or web address] 10/01/2025 10:30 AM EDT Appointment [facility], Ct Scan - [address] [address] Byron Beebe, [address] [address] [email or web address] 10/08/2025 10:30 AM EDT Office Visit [facility] at [address] [address] Byron Beebe, [address] [address] [email or web address] documented as of this encounter Visit Diagnoses Not on filedocumented in this encounter Additional Health Concerns Infection Onset Date Last Indicated Resolved Time CoV-Presumed Comment:COVID-19 Added 11/17/2021 11/17/2021 11/19/2021 10:26 AM EDT CoV-Risk 11/18/2021 11/18/2021 11/19/2021 10:2 6 AM EDT COVID-19 Comment:Per Note Documentation 11/19/2021 11/18/2021 1:23 PM EDT documented as of this encounter Care Teams Electrical Continuity Tester Relationship Specialty Start Date End Date Debra Rasheed MD [address] [place] [address] 7 [place] [address] [email or web address] PCP - General 02/24/17 01/13/22 Malaika Hidalgo MD 234 [facility] 7 [place] [address] [email or web address] PCP - General Family Medicine 01/14/22 01/16/24 Unknown, Veena, PCP - General 01/17/24 09/25/24 Harry Moyer MD [address] [place] [address] [email or web address] PCP - General Internal Medicine 09/26/24 Marielena Llanes NP 1 [place] [address] Historical LMR Provider 04/10/17 2 Real Welch DO [address] [place] [address] 7 [place] [address] [email or web address] Historical LMR Provider 04/10/17 07/03/21 Bea Monroy DO [address] [place] [address] 7 [place] [address] [email or web address] Historical LMR Provider 04/10/17 01/16/24 Sarah Long NP 29 [place] [address] Historical LMR Provider 04/10/17 2 Gab Garrett MD [address] [place] [address] Historical LMR Provider 04/10/17 Gab Javed DO [address] [place] [address] Orthopedics & Sports Medicine, [place] [address] Historical LMR Provider 04/10/17 07/03/21 Aisha Tabor FNP [address] [place] [address] [email or web address] Historical LMR Provider 04/10/17 01/16/24 Ronn Harris MD [address] [place] [phone] [email or web address] Historical LMR Provider 04/10/17 Tess Chan NP [address] [place] [address] Historical LMR Provider 04/10/17 2 Debra Rasheed MD [address] [place] [address] [email or web address] Historical LMR Provider 04/10/17 Adwoa Mehta MD [address] [place] [address] Orthopedics & Sports Medicine, [place] [address] Historical LMR Provider 04/10/17 Pranav Harris MD [address] [place], [place] [address] MIGUEL ANGEL FARFAN [phone] [email or web address] Historical LMR Provider 04/10/17 07/03/21 Ronn Shea MD [address] [place] [address] Orthopedics & Sports Medicine, [place] [address] Historical LMR Provider 04/10/17 2 Debra Rasheed MD [address] [place] [address] [address] [place]EL Farfan [phone] Insurance Assigned Provider 01/27/18 10/01/22 Byron Beebe DO [address] [place] [address] [email or web address] Primary Oncologist Hematology and Oncology 01/14/22 Malaika Hidalgo MD [address] [place] [address] 7 [place]EL Farfan [phone] Insurance Assigned Provider 09/30/23 01/16/24 Malaika Hidalgo MD [address] [place] [address] 7 [place]EL Farfan [phone] Insurance Assigned Provider 09/30/23 07/01/24 documented as of this encounter Additional Source Comments The information contained in this document represents components of the legal health record. It is not the complete legal health record.[facility]
--- OUTSIDE RECORDS SUMMARY | 2025-02-27 15:42 | XMS_ITS | Encounter Summary ---
Author Organization [facility] Address [address] [facility] [address] [place] [address] Phone Care Team Providers Care Supervisor Screen Making Name Role Phone Ronn Harris MD Unavailable [phone] Debra Rasheed MD Unavailable [phone] Adwoa Mehta MD Unavailable [phone] Byron Beebe DO Unavailable [phone] Harry Moyer MD Primary Care Provider + Reason for Referral * Consultation (Routine) - New Request Specialty Diagnoses / Procedures Referred By Flower campbell Referred To Contact Diagnoses Referral of patient System, Provider Not In, PhD [address] [address] Joey Galvez MD [address] [place] [address] Phone: tel: fax: [email or web address] Referral ID Status Reason Start Date Expiration Date V isits Requested Visits Authorized [id number] New Request 02/26/2025 02/26/2026 1 1 Encounter Details Date Type Department Care Team (Latest Contact Info) Description 02/26/2025 Transcribe Orders [facility] Access Center - Virtual Department [address] [place] [address] Self-Referred, Patient Referral of patient (Primary Dx) Social History Tobacco Use Types Packs/Day Years [...] st Contact Info) Description 12/18/2024 Procedure Pass [facility], Ct Scan - [address] [address] 03/05/2025 9:00 AM EDT Office Visit [facility] Orthopedics & Sports Medicine [address] [place] [address] Gab Javed DO [address] [place] [address] Orthopedics & Sports Medicine, [facility] [place] [address] [email or web address] 03/07/2025 10:00 AM EDT Office Visit [facility] Sports Medicine [address] [place] [address] Andre Zarate MD, SHEMAR [address] [address] 03/31/2025 8:00 AM EDT Telemedicine [facility] Epilepsy Service 55 [facility], 8th Floor, [address] [place] [address] Lucia Samuel MD 55 [facility] Department of HnzvqowqaICDW721 [place] [address] [email or web address] 04/11/2025 2:00 PM EDT Office Visit [facility] Heart Failure & Transplantation 32 [facility], 5th Floor, [address] [place] [address] Raza Pan MD 55 [facility] 5[address] [place] [address] [email or web address] 10/01/2025 10:30 AM EDT Appointment [facility], Ct Scan - [address] [address] Byron Beebe, DO 30 [place] [address] [email or web address] 10/08/2025 10:30 AM EDT Office Visit [facility] at [address] [address] Byron Beebe, DO 30 [place] [address] [email or web address] Scheduled Referrals Name Type Priority Associated Diagnoses Order Schedule Ambulatory referral to [facility] Orthopedics - Employed Practices Outpatient Referral Routine Referral of patient Ordered: 02/26/2025 documented as of this encounter Visit Diagnoses Diagnosis Referral of patient- Primary Referral of patient without examination or treatment documented in this encounter Additional Health Concerns Assessment Noted Time PHQ-2 Depression Total Score: 0 01/04/20 22 2:34 PM EDT documented as of this encounter Care Teams Supervisor Screen Making Relationship Specialty Start Date End Date Harry Moyer MD [address] [place] [address] 238 [place] [address] [email or web address] PCP - General Internal Medicine 09/26/24 Ronn Harris MD [address] [place] [address] 7 [place] [phone] [email or web address] Historical LMR Provider 04/10/17 Debra Rasheed MD [address] [place] [address], [address] [place] [address] [email or web address] Historical LMR Provider 04/10/17 Adwoa Mehta MD [address] [place] [address] Orthopedics & Sports Medicine, [facility] [place] [address] [email or web address] Historical LMR Provider 04/10/17 Byron Beebe DO 30 [place] [address] [email or web address] Primary Oncologist Hematology and Oncology 01/14/22 documented as of this encounter Additional Source Comments The information contained in this document represents components of the legal health record. It is not the complete legal health record.[facility]
--- OUTSIDE RECORDS SUMMARY | 2025-02-27 15:42 | XMS_ITS | Encounter Summary ---
Author Organization [facility] Address [facility] [address] [place] [address] Phone Care Team Providers Care Biology Instructor Name Role Phone Bea Monroy Claudy DO Unavailable Aisha Tabor DATA CENTER OPERATOR Unavailable Ronn Harris MD Unavailable Debra Rasheed MD Unavailable Adwoa Mehta MD Unavailable [phone] Debra Rasheed MD Unavailable Malaika Hidalgo MD Primary Care Provider [phone] Byron Beebe DO Unavailable Malaika Hidalgo MD Unavailable [phone] Unknown, Unknown Primary Care Provider Malaika Parham MD Unavailable Harry Moyer MD Primary Care Provider + Encounter Details Date Type Department Care Team (Late st Contact Info) Description 02/24/2022 Procedure Pass [facility] Admitting Dept Virtual Department 30 [place], [place] [id number] Social History Tobacco Use Types Packs/Day Years [...] high school, GED, job training, learning the [place] Citizen language, technical skills, or developing parenting skills)? [...] st Contact Info) Description 12/18/2024 Procedure Pass [facility], Ct Scan - [facility] 30 [place] [address] 03/05/2025 9:00 AM EDT Office Visit [facility] Orthopedics & Sports Medicine [address] [place] [address] Gab Javed, DO 4 [facility] Orthopedics & Sports Medicine, [place] [address] [email or web address] 03/07/2025 10:00 AM EDT Office Visit [facility] Sports Medicine [address] [place] [address] Andre Zarate MD, SHEMAR [address] [address] [email or web address] 03/31/2025 8:00 AM EDT Telemedicine [facility] Epilepsy Service 55 [facility], 8th Floor, [address] [place] [address] Lucia Samuel MD 55 [facility] Department of BhaxtikorSHDV900 [place] [address] [email or web address] 04/11/2025 2:00 PM EDT Office Visit [facility] Heart Failure & Transplantation 32 [facility], 5th Floor, [address] [place] [address] Raza Pan MD [address] [address] [email or web address] 10/01/2025 10:30 AM EDT Appointment [facility], Ct Scan - [address] [address] Byron Beebe, DO 30 [place] [address] [email or web address] 10/08/2025 10:30 AM EDT Office Visit [facility] 30 [place] [address] Byron Beebe, DO 30 [place] [address] [email or web address] documented as of this encounter Visit Diagnoses Not on filedocumented in this encounter Additional Health Concerns Assessment Noted Time PHQ-2 Depression Total Score: 0 01/04/20 22 2:34 PM EDT documented as of this encounter Care Teams Biology Instructor Relationship Specialty Start Date End Date Malaika Hidalgo MD 234 [facility] 7 [place] [address] [email or web address] PCP - General Family Medicine 01/14/22 01/16/24 Unknown, Veena, PCP - General 01/17/24 09/25/24 Harry Moyer MD [address] [place] [address] [email or web address] PCP - General Internal Medicine 09/26/24 Bea Monroy DO 234 [facility] 7 [place] [address] [email or web address] Historical LMR Provider 04/10/17 01/16/24 Aisha Tabor FNP [address] [place] [address] 7 [place] [address] [email or web address] Historical LMR Provider 04/10/17 01/16/24 Ronn Harris MD 234 [facility] 7 [place] [address] [email or web address] Historical LMR Provider 04/10/17 Debra Rasheed MD [address] [place] [address] 7 [place] [address] Historical LMR Provider 04/10/17 Adwoa Mehta MD [address] [place] [address] Orthopedics & Sports Medicine, [facility] [place] [place] [address] Historical LMR Provider 04/10/17 Debra Rasheed MD [address] [place] [address] 7 [place] [address] Insurance Assigned Provider 01/27/18 10/01/22 Byron Beebe DO [address] [place] [address] [email or web address] [email or web address] Primary Oncologist Hematology and Oncology 01/14/22 Malaika Hidalgo MD [address] [place] [address] 7 [place] [address] Insurance Assigned Provider 09/30/23 01/16/24 Malaika Hidalgo MD [address] [place] [address] 7 [place] [address] Insurance Assigned Provider 09/30/23 07/01/24 documented as of this encounter Additional Source Comments The information contained in this document represents components of the legal health record. It is not the complete legal health record.[facility]
--- OUTSIDE RECORDS SUMMARY | 2025-02-27 15:42 | XMS_ITS | Encounter Summary ---
Author Organization [facility] Address [facility] [employer] [facility] [address] [place] [address] Phone Care Team Providers Care Truck Driving Instructor Name Role Phone Bea Monroy Claudy PEDRO Unavailable Aisha Tabor Unavailable [phone] Ronn Harris MD Unavailable Debra Rasheed MD Unavailable [phone] Adwoa Mehta MD Unavailable [phone] Malaika Hidalgo MD Primary Care Provider [phone] Byron Beebe DO Unavailable [phone] Malaika Hidalgo MD Unavailable Unknown, Unknown Primary Care Provider Malaika Parham MD Unavailable Harry Moyer MD Primary Care Provider + Encounter Details Date Type Department Care Team (Late st Contact Info) Description 12/06/2023 Procedure Pass [facility], Ct Scan - [address] [id number] Social History Tobacco Use Types Packs/Day Years [...] 06/26/2021 Digital Access Answer Date Recorded No 11/16/2022 No 11/16/2022 Reliable internet access at home? Not on file 11/16/2022 Device with a working camera? Not on file Intimate Partner Violence Answer Date R ecorded Are you denied basic needs s uch as food, clothing, or medical care? No 07/04/2022 In the past 12 months have y ou been in a relationship with a person who hurts, threatens, or tries to control you? No 07/04/2022 Are you denied basic needs s uch as food, clothing, or medical care? No 07/04/2022 In the past 12 months have y ou been in a relationship with a person who hurts, threatens, or tries to control you? No 07/04/2022 Sex and Gender Information Value Date Recorded Sex Assigned at Male 08/15/2020 10:42 AM EST Legal Sex Male 1:14 PM EDT Gender Identity Male 08/15/2020 10:42 AM EST Sexual Orientation Straight 08/15/2020 10 :42 AM EST documented as of this encounter Plan of Treatment Upcoming Encounters Date Type Department Care Team (Late st Contact Info) Description 12/18/2024 Procedure Pass [facility], Ct Scan - [facility] 30 [place] [address] 03/05/2025 9:00 AM EDT Office Visit [facility] Orthopedics & Sports Medicine [address] [place] [address] Gab Javed DO [address] [place] [address] Orthopedics & Sports Medicine, [facility] [place] [address] [email or web address] 03/07/2025 10:00 AM EDT Office Visit [facility] Sports Medicine [address] [place] [address] Andre Zarate MD, SHEMAR [address] [address] [email or web address] 03/31/2025 8:00 AM EDT Telemedicine [facility] Epilepsy Service 55 [facility], 8th Floor, [address] [place] [address] Lucia Samuel MD 55 [facility] Department of EqdstrvnnFQFE553 [place] [address] [email or web address] 04/11/2025 2:00 PM EDT Office Visit [facility] Heart Failure & Transplantation 32 [facility], 5th Floor, [address] [place] [address] Raza Pan MD 55 [facility] 5B [place] [address] [email or web address] 10/01/2025 10:30 AM EDT Appointment [facility], Ct Scan - [address] [address] Byron Beebe, DO 30 [place] [address] ANA [email or web address] 10/08/2025 10:30 AM EDT Office Visit [facility] at [address] [address] Byron Beebe, DO 30 [place] [address] [email or web address] documented as of this encounter Visit Diagnoses Not on filedocumented in this encounter Additional Health Concerns Assessment Noted Time PHQ-2 Depression Total Score: 0 01/04/20 22 2:34 PM EDT documented as of this encounter Care Teams Truck Driving Instructor Relationship Specialty Start Date End Date Malaika Hidalgo MD [address] [place] [address] [email or web address] PCP - General Family Medicine 01/14/22 01/16/24 Unknown, Veena, PCP - General 01/17/24 09/25/24 Harry Moyer MD [address] [place] [address] PCP - General Internal Medicine 09/26/24 Bea Monroy DO [address] [place] [address] [email or web address] Historical LMR Provider 04/10/17 01/16/24 Aisha Tabor FNP [address] [place] [address] [email or web address] Historical LMR Provider 04/10/17 01/16/24 Ronn Harris MD [address] [place] [address] 7 [place] FARFAN [phone] [email or web address] Historical LMR Provider 04/10/17 Debra Rasheed MD [address] [place] [address] 7 [place]EL Farfan [address] [email or web address] Historical LMR Provider 04/10/17 Adwoa Mehta MD [address] [place] [address] Orthopedics & Sports Medicine, [place] [address] [email or web address] Historical LMR Provider 04/10/17 Byron Beebe DO [address] [place] [address] [email or web address] [email or web address] Primary Oncologist Hematology and Oncology 01/14/22 Malaika Hidalgo MD [address] [place] [address] 7 [place]EL Farfan [address] Insurance Assigned Provider 09/30/23 01/16/24 Malaika Hidalgo MD [address] [place] [address] 7 [place] Farfan [phone] Insurance Assigned Provider 09/30/23 07/01/24 documented as of this encounter Additional Source Comments The information contained in this document represents components of the legal health record. It is not the complete legal health record.[facility]
--- OUTSIDE RECORDS SUMMARY | 2025-02-27 15:42 | XMS_ITS | Clinical Summary ---
Author Organization [facility] Address [address] [facility] [address] [place] [id number] Phone Care Team Providers Care Stop Attacher Name Role Phone Ronn Harris MD Unavailable [phone] Debra Rasheed MD Unavailable [phone] Adwoa Mehta MD Unavailable [phone] Byron Beebe DO Unavailable [phone] Harry Moyer MD Primary Care Provider + Allergies Active Allergy Reactions Criticality Noted Date Comments Phenytoin Sodium Extended Flushing Medium 03/29/2017 Trouble breathing and flushing Phenytoin 11/13/2024 Other Reaction(s): Other (See Comments) FLUSHED Medications tretinoin (RETIN-A) 0.1 % cream Apply 1 application topically nightly. 2 017 Active omeprazole (PRILOSEC) 20 MG capsule Take 20 mg by mouth daily. 013 Active venlafaxine (EFFEXOR-XR) 150 MG 24 hr capsuleIndication s:Depression Take 1 capsule (150 mg total) by mouth nightly at bedtime. 5 capsule 022 Active clonazePAM (KLONOPIN) 0.5 MG tablet Take 1 tablet (0.5 mg total) by mouth nightly at bedtime. 10 tablet 022 Active gabapentin (NEURONTIN) 600 MG tablet 022 Active OXcarbazepine (TRILEPTAL) 300 MG tablet Take 1 tablet (300 mg total) by mouth 2 (two) times a day. 023 Active sildenafiL (VIAGRA) 100 mg tablet Take 1 tablet (100 mg total) by mouth daily as needed. 20 tablet 023 Active ARIPiprazole (ABILIFY) 2 MG tablet Take 2 mg by mouth daily. 023 Active tamsulosin (FLOMAX) 0.4 mg Cap take 1 capsule by mouth every day 90 capsule 3 024 Active rosuvastatin (CRESTOR) 20 MG tablet take one tablet by mouth every day 90 tablet 3 024 Active dapagliflozin propanediol (FARXIGA) 10 mg tabletIndications :Chronic systolic heart failure Take 1 tablet (10 mg total) by mouth daily. 90 tablet 3 025 Active eplerenone (INSPRA) 25 MG tabletIndications :Chronic systolic heart failure TAKE ONE-HALF TABLET BY MOUTH ONCE DAILY 45 tablet 3 025 Active sacubitriL-valsar moore (ENTRESTO) 24-26 mg per tabletIndications :Non-ischemic cardiomyopathy Take 1 tablet by mouth 2 (two) times a day. 180 tablet 3 025 Active metoprolol succinate (TOPROL-XL) 25 MG 24 hr tablet Take 0.5 tablets (12.5 mg total) by mouth daily. 45 tablet 3 025 Active ibuprofen (ADVIL,MOTRIN) 600 MG tablet Take 1 tablet (600 mg total) by mouth every 6 (six) hours as needed for pain (specific location in comments). 20 tablet 025 Active sodium chloride 0.9% SolP 100 mL with iron sucrose 100 mg iron/5 mL Soln 200 mg of red cliff iron Inject 200 mg of red cliff iron into the vein as directed. Patient to receive 5 doses per infusion protocol at least 3 day separation between doses 5 Bag 023 2024 Discontinued levETIRAcetam (KEPPRA) 500 MG tablet Take 1 tablet (500 mg total) by mouth 2 (two) times a day. 60 tablet 025 2024 Discontinued Active Problems Patient Care Coordination No te Formatting of this note migh t be different from the original. Height 182.2cm no shoes 12/01/2022 Problem Noted Date Diagnosed Date Iron deficiency anemia, unspecified 09/29/2023 Squamous cell carcinoma of right lung 12/01/2022 Overview (12/01/2022): (Dr Byron Beebe, [facility]): resected stage I A2 squamous cell carcinoma of the lung. No adjuvant treatment administered. Some question as to whether or not this could have been a metastatic head and neck primary given positivity for p16 however the patient underwent laryngoscopy and in the absence of a clear primary I think it is reasonable to consider this a squamous cell carcinoma of the lung which was early stage. MRI was negative of the brain given his recent seizure activity. F/u q6m w/ CT scan. Hypercholesterolemia 11/13/2022 Iron deficiency 10/12/2022 Assessment & Plan (10/12/2022 5:22 PM EDT): cscope up to date. Low iron in diet. Recommend check for h pylori and celiac. Ordered, instructed pt on how to get labs done. Will recheck iron studies/CBC in one month after supplementation during that time. Taking 26mg elemental iron daily which he will continue. Corns 05/17/2022 Impaired fasting glucose 05/11/2022 S/P partial lobectomy of lung 2021 Assessment & Plan (09/07/2022 12:31 PM EDT): Doing well, per oncology note. Osteoarthritis of shoulder 12/22/2018 Restless leg syndrome, controlled 12/03/2018 Overview (12/03/2018): controlled with gabapentin Assessment & Plan (01/03/2022 5:39 PM EDT): Stable, continue gabapentin. Depression 09/10/2017 Overview (11/15/2017): Currently seeing Dr Gab Jung. Family history of colon cancer 09/10/2017 GERD (gastroesophageal reflux disease) 8 Assessment & Plan (01/03/2022 5:40 PM EDT): Hx of being induced by ASA, now resolved. Left bundle branch block (LBBB) 09/10/2017 Seizure disorder 09/10/2017 Overview (07/11/2022): No seizures since 1999. Sees Dr Chavira [facility] Stable as of 07/07/22. Assessment & Plan (09/07/2022 12:31 PM EDT): Reviewed documentation as above. Neurologist adjusted meds and I updated chart accordingly. Assessment & Plan (01/03/2022 5:39 PM EDT): Stable. Oxcarbazepine well tolerated, continue. Obstructive sleep apnea syndrome 09/10/2017 Assessment & Plan (09/07/2022 12:32 PM EDT): Per chart review, june. Cardiomyopathy 07/25/2017 Assessment & Plan (09/07/2022 12:32 PM EDT): Also per chart review, june. Assessment & Plan (01/03/2022 5:39 PM EDT): Stable on sacubitril-valsartan, metoprolol. Generally asymptomatic, though his medications have some side effects that are a bit subduing. 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 Assessment & Plan (12/03/2018 10:25 AM EDT): Asymptomatic, euvolemic Hold lisinopril, spironolactone the night before surgery Continue metoprolol and aspirin Benign prostatic hyperplasia without lower urinary tract symptoms 07/25/2017 Overview (11/15/2017): Sees Dr Villa for this. Resolved Problems Problem Noted Date Diagnosed Date Resolved Date Flat foot 05/17/2022 09/07/2022 Hammer toe of left foot 05/17/2022 06/0 01/2023 Lumbosacral radiculopathy 05/11/2022 Chronic renal impairment, stage 2 (mild) 11/29/2021 09/07/2022 Nodule of lower lobe of right lung 09/17/2021 12/16/2021 Pulmonary nodules 03/18/2020 09/07/2022 Assessment & Plan (09/17/2021 11:06 AM EDT): Patient most recent chest CT showing concerning enlargment of nodules, however, PET CT was negative. Went over CT images with Dr. Peralta (thoracic surgery) who was concerned this could be a malignancy, despite being negative on PET. Instead of pursuing a fine needle biopsy, he favors a surgical approach and removal of area. Patient will be referred to [facility] thoracic surgery. We will need to repeat PFTs to assess pulmonary function. With history of cardiomyopathy, will repeat an ECHO for cardiac clearance for potential surgery. Assessment & Plan (03/18/2020 8:56 PM EDT): Most recent CT scan 07/14 showed some presumed inflammatory changes but no new nodules. 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 Unilateral primary osteoarthritis, left knee 9 01/29/2020 Pre-operative examination 2018 Assessment & Plan (12/03/2018 10:23 AM EDT): Cardiac Risk Assessment: Patient is scheduled for moderate risk surgery, no unstable coronary syndromes, decompensate CHF, significant arrhythmia, or sever valvular disease. Clinical risk factors: History of ischemic heart disease: No History of heart failure: Yes History of CVD: No DM on insulin: No Cr > 2mg/dL: No RCRI score= 1 ASA class: II Functional status < 4 METs: No based on RCRI score, the estimated risk of major adverse cardiac event is < 1%, may proceed to surgery without further cardiac stratification. VTE prophylaxis: recommend pharmacologic prophylaxis in addition to early mobilization, graduated compression stokings and intermittent pneumatic boots. If aspirin will be used, please avoid enteric-coated or delayed-release aspirin due to decreased bioavailability. At risk of postop constipation, suggest daily miralax after surgery. Pain of upper abdomen 09/14/20172017 Overview (09/14/2017): This started while he was in [place] in August 2017. While there he developed nausea, then a few days later diarrhea with nausea, no vomiting. He felt feverish. No rectal bleeding. He took azithromycin and pepto bismol, which didn't seem to help. He lost 10lb Assessment & Plan (09/14/2017 5:51 PM EDT): I want him to take probiotic twice daily, continue psyllium husk fiber and add Colace. I don't think ova and parasite testing is indicated at this time as he has had no more diarrhea since he's been home. If the abdominal pain worsens or if he develops fever he will follow up immediately Arthritis of knee 09/10/2017 01/29/2020 Assessment & Plan (2018 4:16 PM EDT): Left UNI Benign essential hypertension 07/25/2017 01/29/2020 Pure hypercholesterolemia 07/25/2017 Chronic pain of left knee Bilateral knee pain 01/29/20 20 Overview (07/04/2018): L>R Encounters Date Type Department Care Team Description 02/27/2025 Refill [facility] Heart Failure & Transplantation [address] [facility], 5th Floor, [address] [place] [address] Raza Pan MD Medication Refill 02/26/2025 5:43 PM EDT - 02/27/2025 2:10 AM EDT Emergency [facility] [address] [place] [address] Tete Ruano MD Birrenkott, Drew Alan, MD, DPHIL Discharge Disposition: Home or Self Care 02/26/2025 Transcribe Orders [facility] Access Center - Virtual Department [address] [place] [address] Self-Referred, Patient Referral of patient (Primary Dx) 02/25/2025 1:59 PM EDT - 02/25/2025 11:59 PM EDT Hospital Encounter [facility], Ct Scan [address] [address] Real Thompson PA-C Arrived Discharge Disposition: Home or Self Care 02/25/2025 Transcribe Orders [facility] Access Center - Virtual Department [address] [place] [address] System, Provider Not In, PhD Humeral head fracture, left, closed, initial encounter (Primary Dx) 02/19/2025 3:00 PM EDT Office Visit [facility] at [address] [phone] Real Thompson PA-C Closed fracture dislocation of joint of left shoulder girdle, initial encounter (Primary Dx) 02/19/2025 2:53 PM EDT - 02/19/2025 11:59 PM EDT Hospital Encounter [address] [address] Real Thompson PA-C Discharge Disposition: Home or Self Care 02/19/2025 Procedure Pass [facility], Ct Scan [address] [address] 02/18/2025 5:12 PM EDT - 02/18/2025 9:25 PM EDT Emergency [facility] [address] [place] [address] Aamir Gold MD Discharge Disposition: Home or Self Care 02/18/2025 12:31 PM EDT - 02/18/2025 5:11 PM EDT Hospital Encounter [address] [address] Real Thompson PA-C Discharge Disposition: Home or Self Care 02/18/2025 12:30 PM EDT Office Visit [facility] at [address] [address] Real Thompson PA-C Closed fracture dislocation of joint of left shoulder girdle, initial encounter (Primary Dx); Pain in joint, shoulder region 01/28/2025 12:00 PM EDT Office Visit [facility] Heart Failure & Transplantation [address] [facility], 5[address], [address] [place] [address] Daisy Child FNP Cardiomyopathy (Primary Dx); Chest pain, unspecified type; Left bundle branch block (LBBB) 01/27/2025 Telephone [facility] Heart Failure & Transplantation [address] [facility], 5th [address], [address] [place] [address] Hyacinth Harley RN Chest Pain 12/26/2024 3:31 PM EDT - 12/26/2024 11:59 PM EDT Hospital Encounter [address] [address] Juan Ramon Soler MD Discharge Disposition: Home or Self Care 12/18/2024 2:00 PM EDT Office Visit [facility] at [address] [address] Byron Beebe DO Squamous cell carcinoma of right lung (Primary Dx) 12/11/2024 11:00 AM EDT - 12/11/2024 11:59 PM EDT Hospital Encounter [facility], [address] [address] Byron Beebe DO Discharge Disposition: Home or Self Care 12/11/2024 Orders Only [facility] at [address] [address] Katy Mena Squamous cell carcinoma of right lung (Primary Dx) 12/06/2024 Procedure Pass [address] [address] 12/06/2024 Transcribe Orders Virtual Department [address] [place] [address] Juan Ramon Soler MD Seizure (Primary Dx) 12/02/2024 11:40 AM EDT - 12/02/2024 3:57 PM EDT Emergency [facility] [address] [place] [address] Aamir Gold MD Discharge Disposition: Home or Self Care 06/13/2024 Procedure Pass [facility], Ct Scan - [address] [address] from Last 3 Months Immunizations Immunization Administration Dates Next Due COVID-19 (Pre-04/17) Pfizer Vaccine, mRNA, PF 08/12/2020,07/22/2020 [id number] FORMULATION 08/03/2009 INFLUENZA, SPLIT VIRUS, TRIV ALENT W/ PRESERVATIVE IM 07/22/2011 Influenza High-Dose Quadriva lent Preservative Free IM 04/19/2022 Influenza High-Dose Trivalen t Preservative Free IM 04/02/2020,05/13/2019,06/30/2018,06/25,07/31/2013 Influenza Quadrivalent Adjuv anted Preservative Free IM 04/12/2023 Influenza Quadrivalent Prese rvative Free IM 04/01/2021 Influenza, Unspecified Formulation 04/19/2022 Pneumococcal conjugate PCV13 06/25/2015 Pneumococcal polysaccharide PPSV23 01/24/2012 Td (adult) 5 Lf Tetanus Toxo id, PF, Adsorbed 01/02/2007,09/18/2001 Td, unspecified formulation 01/02/2007 Tdap 02/13/2023,01/24/2013 Typhoid, ViCPs 12/04/2012 Zoster live 01/18/2008 Zoster recombinant 04/02/2020,01/16/2020 Family History Medical History Relation Comments Heart attack Brother 2 brothers Bone cancer Father Dementia Father Prostate cancer Father Colon cancer Mother Dementia Mother Relation Status Comments Brother Father Mother Social History Tobacco Use Types Packs/Day Years Used Date Smoking Tobacco: Former Cigarettes 1 5 0 11/24/1968 - 06/26/1973 Smokeless Tobacco: Never Tobacco Cessation:Counseling Given: Not Answered Alcohol Use Standard Drinks/Week Comments No 0 [...] your housing situation today? I have adonay solis 02/26/2025 How many times have you move [...] Orientation Straight 08/15/2020 10 :42 AM EST Last Filed Vital Signs Vital Sign Reading Time Taken Comments Blood Pressure 136/86 02/27/2025 12:30 AM EDT Pulse 82 02/27/2025 12:30 AM EDT Temperature 36.6 C (97.9 F) 02/26/2025 2:35 PM EDT Respiratory Rate 18 02/27/2025 12:30 AM EDT Oxygen Saturation 97% 02/27/2025 12:30 AM EDT Inhaled Oxygen Concentration 21% 12/22/2018 4 :05 AM EDT Weight 83.5 kg (184 lb) 02/26/2025 2:35 PM EDT Height 180.3 cm (5' 11 ) 02/26/2025 2:35 PM EDT Body Mass Index 25.66 02/26/2025 2:35 PM EDT Plan of Treatment Upcoming Encounters Date Type Department Care Team (Late st Contact Info) Description 12/18/2024 Procedure Pass [facility], Ct Scan - [address] [address] 03/05/2025 9:00 AM EDT Office Visit [facility] Orthopedics & Sports Medicine [address] [place] [address] Gab Javed DO [address] [place] [address] Orthopedics & Sports Medicine, [facility] [place] [address] [email or web address] 03/07/2025 10:00 AM EDT Office Visit [facility] Sports Medicine [address] [place] [address] Andre Zarate MD, SHEMAR [address] [address] 03/31/2025 8:00 AM EDT Telemedicine [facility] Epilepsy Service [address] [facility], 8th Floor, [address] [place] [address] Lucia Samuel MD [address] [place] [address] Department of [email or web address] [place] [address] [email or web address] 04/11/2025 2:00 PM EDT Office Visit [facility] Heart Failure & Transplantation [address] [facility], 5th [address], [address] [place] [address] Raza Pan MD [address] [facility] [address] [place] [address] [email or web address] 10/01/2025 10:30 AM EDT Appointment [facility], Ct Scan - [address] [address] Byron Beebe, DO [address] [place] [address] [email or web address] 10/08/2025 10:30 AM EDT Office Visit [facility] [address] [place] [address] Byron Beebe, DO [address] [place] [address] [email or web address] Health Maintenance Due Date Last Done Comments COLOGUARD 12/01/1991 FIT TEST 12/01/1991 FOBT 12/01/1991 SIGMOIDOSCOPY 12/01/1991 VIRTUAL COLONOSCOPY 12/01/1991 RSV VACCINE (1 - 1-dose 75+ series) 2021 DEPRESSION SCREENING 01/03/2023 01/03/2022 INFLUENZA VACCINE (#1) 2025 , 04/13/2023, 04/13/2023, Additional history exists COVID-19 VACCINE ( season) 2025 02/22/2024, 04/12/2023, 06/21/2022, Additional history exists POTASSIUM LEVEL 12/02/2025 12/02/2024, 0501/2025, 11/06/2024, Additional history exists COLONOSCOPY 02/24/2027 02/24/2022, 11/06/2015 COLORECTAL CANCER SCREENING 02/24/2027 LIPID PANEL 11/06/2029 11/06/2024, 04/0 02/2024, 01/04/2023, Additional history exists Adult Td,Tdap Booster 02/13/2033 02/13/2023 , 01/24/2013, 01/02/2007, Additional history exists PNEUMOCOCCAL VACCINES (50+ years) Completed 06/25/2015, 01/24/2012 ZOSTER VACCINES Completed 04/02/2020, 12/25, 01/18/2008 HEPATITIS C SCREENING Completed 10/03/2023 , 11/21/2017, 11/21/2017 SMOKING STATUS SCREENING (Once After 26 Yrs) Completed 02/26/2025 HEPATITIS A VACCINES Aged Out No long er eligible based on patient's age to complete this topic HIB VACCINES Aged Out No longer eligi ble based on patient's age to complete this topic MENINGOCOCCAL VACCINES (ACWY) Aged Out No longer eligible based on patient's age to complete this topic MENINGOCOCCAL VACCINES (B) Aged Out N o longer eligible based on patient's age to complete this topic Medical Devices Implanted Type Area Cook Roast Device Identifier Shelf Expiration Date Model / Serial / Lot Dental Implant Lens Left: Eye Cement Bone 40gr Palacos R Radiopaque Bx/1bo/1ea - [id number] Implanted:Qty: 1 on 12/21/2018 by Papo Asif MD at [facility] Left: Knee BRITT / [employer] 10/23/2021 [id number] / / [id number] Description:The implant type , laterality (when applicable), size, and expiration date have been visually and verbally confirmed by the Surgeon, Circulating RN and Scrub Personnel. Persona Partial Femur Cemented Size 6 Implanted:Qty: 1 on 12/21/2018 by Papo Asif MD at [facility] Left: Knee [employer] 04/25/2027 [id number] / / [id number] Description:The implant type , laterality (when applicable), size, and expiration date have been visually and verbally confirmed by the Surgeon, Circulating RN and Scrub Personnel. Persona Size H Partial Articular Surface Implanted:Qty: 1 on 12/21/2018 by Papo Asif MD at [facility] Left: Knee [employer] 06/25/2022 [id number] / / [id number] Description:The implant type , laterality (when applicable), size, and expiration date have been visually and verbally confirmed by the Surgeon, Circulating RN and Scrub Personnel. Persona Partial Tibia Size H Left Medial Implanted:Qty: 1 on 12/21/2018 by Papo Asif MD at [facility] Left: Knee [employer] 04/25/2027 [id number] / / [id number] Description:The implant type , laterality (when applicable), size, and expiration date have been visually and verbally confirmed by the Surgeon, Circulating RN and Scrub Personnel. Knee Component Sz 6 Tibial Rt Persona Medial - Sna Implanted:Qty: 1 on 09/18/2020 by Papo Asif MD at [facility] Right: Knee [employer]ITT / [employer] [id number] 06/25/2029 [id number] / NA / [id number] Description:The implant type , laterality (when applicable), size, and expiration date have been visually and verbally confirmed by the Surgeon, Circulating RN and Scrub Personnel. Haerus Palacos Regular Cement- Implanted:Qty: 1 on 09/18/2020 by Papo Asif MD at [facility] Right: Knee [employer]ITT [id number] 04/25/2023 [id number] / NA / [id number] Description:The implant type , laterality (when applicable), size, and expiration date have been visually and verbally confirmed by the Surgeon, Circulating RN and Scrub Personnel. Knee Component Sz H Tibial Rt Persona Medial - Sna Implanted:Qty: 1 on 09/18/2020 by Papo Asif MD at [facility] Right: Knee [employer]ITT / [employer] [id number] 04/11/2030 [id number] / NA / [id number] Description:The implant type , laterality (when applicable), size, and expiration date have been visually and verbally confirmed by the Surgeon, Circulating RN and Scrub Personnel. Knee Bearing Sz H 8mm Tibial Rt Persona Polyethylene Medial - Sna Implanted:Qty: 1 on 09/18/2020 by Papo Asif MD at [facility] Right: Knee [employer]ITT / [employer] [id number] 12/23/2024 [id number] / NA / [id number] Description:The implant type , laterality (when applicable), size, and expiration date have been visually and verbally confirmed by the Surgeon, Circulating RN and Scrub Personnel. Procedures Procedure Name Priority Date/Time Associated Diagnosis Comments SEDATION Routine 02/27/2025 2:19 PM EDT ORTHOPEDIC INJURY TREATMENT Routine 02/27/2025 3:34 AM EDT XR SHOULDER 2 VIEWS (LEFT) Routine 02/27/2025 12:21 AM EDT XR SHOULDER 2 VIEWS (LEFT) Routine 02/26/2025 7:[address] SHOULDER WITHOUT CONTRAST (LEFT) Urgent/patient waiting 02/25/2025 2:25 PM EDT Closed fracture dislocation of joint of left shoulder girdle, initial encounter XR SHOULDER 2 VIEWS (LEFT) Routine 02/19/2025 2:59 PM EDT Closed fracture dislocation of joint of left shoulder girdle, initial encounter SEDATION Routine 02/18/2025 9:57 PM EDT ORTHOPEDIC INJURY TREATMENT Routine 02/18/2025 9:53 PM EDT XR SHOULDER 2 VIEWS (LEFT) Routine 02/18/2025 8:35 PM EDT XR SHOULDER 2 VIEWS (LEFT) Routine 02/18/2025 12:38 PM EDT Pain in joint, shoulder region ECG 12-LEAD Routine 01/28/2025 12:04 PM EDT Cardiomyopathy MRI BRAIN (SEIZURE) WITH AND WITHOUT CONTRAST Routine 12/26/2024 4:[address] CHEST WITH CONTRAST Routine 12/11/2024 11:26 AM EDT Squamous cell carcinoma of right lung URINALYSIS W/REFLEX URINE CULTURE STAT 12/02/2024 1:47 PM EDT LFTS (HEPATIC PANEL) STAT 12/02/2024 12:06 PM EDT BASIC METABOLIC PANEL STAT 12/02/2024 12:06 PM EDT CBC AND DIFFERENTIAL STAT 12/02/2024 12:06 PM EDT ECG 12-LEAD STAT 12/02/2024 11:57 AM EDT LIPID PANEL Routine 11/06/2024 12:19 PM EDT Preventative health care HEPATITIS C ANTIBODY, QUALITATIVE Routine 10/03/2023 1:55 PM EDT Routine medical exam Fatigue, unspecified type Iron deficiency ENDOSCOPY, COLON 02/24/2022 12:5 1 PM EDT from Last 3 Months or Most Recently Relevant to Health Maintenance Results * Sedation (02/27/2025 2:19 PM EDT) Only the most recent of2 resultswithin the time period is included. Narrative Dusty Hylton MD, DPROSIEL - 02/27/2025 2:19 PM EDT Dusty Hylton MD, DPROSIEL 02/27/2025 2:20 PM Sedation Date/Time: 02/27/2025 2:19 PM Performed by: Dusty Hylton MD, DPROSIEL Authorized by: Dusty Hylton MD, DPROSIEL Consent obtained: Yes Time out: Immediately prior to the procedure a time-out was called Indications: Procedure performed: Fracture reduction Pre-sedation assessment: Pre-sedation evaluation completed; I examined and reassessed this patient immediately prior to administration of sedation Pre sedation evaluation completed by: Dusty Flores MD, DPhil Procedure details (see MAR for exact dosages): I was present for the length of the entire sedation timeframe from first injection and continuously throughout for 20 minutes Intended level of sedation: Deep Preoxygenation: Nasal cannula Sedation: Propofol Intra-procedure monitoring: Blood pressure monitoring, continuous capnometry, frequent LOC assessments, frequent vital sign checks, continuous pulse oximetry and property assessment monitor Intra-procedure events: none Post-procedure details: Attendance: constant attendance by certified staff until patient recovered Recovery: patient returned to pre-procedure baseline for mental status and respiratory function Post-sedation assessments completed and reviewed: airway patency, cardiovascular function, mental status and respiratory function Patient tolerance: Tolerated well, no immediate complications us Dusty Hylton MD, [facility] TION ORDERABLES - ONCE Final [...] no immediate complications us Dusty Hylton MD, [facility] PROCEDURE/MINOR S URGICAL ORDERABLES Final Result * [...] dislocation. Comminuted Hill-Sachs fracture is again visualized. Riya Bruce PA-C IMG XR UPPER EXTREMITY [...] clinician's provided indication for this examination in [facility]: Pain COMPARISON: CT SHOULDER WITHOUT CONTRAST (LEFT) [...] indication for this examination in Epic:Pain COMPARISON: CT SHOULDER WITHOUT CONTRAST (LEFT) FINDINGS: Persistent left posterior shoulder dislocation with large reverseHill-Sachs impaction fracture better delineated on prior CT. Similar mildwidening of the AC joint with background degenerative changes and chronicappearing intra-articular body, possibly age-indeterminate AC jointinjury. IMPRESSION: Persistent left posterior shoulder dislocation with large reverseHill-Sachs impaction fracture. Ruthy Witt PA-C IMG XR UPPER EXTREMITY Final Result * CT SHOULDER WITHOUT CONTRAST (LEFT) (02/25/2025 2:25 PM EDT) [facility] IMG FACTORY PROCESS WORKERS COMMENT Incidental finding: Focal left lower lobe subpleural thickening, indeterminate. Further evaluation with dedicated CT chest may be considered in this patient with a history of non-small cell lung cance [facility] Anatomical Region Laterality Modality Shoulder Left Computed [...] initiated on 02/25/2025 2:47 PM, Message ID [id number]. Narrative 02/25/2025 2:[address] SHOULDER WITHOUT CONTRAST (LEFT) Referring clinician's provided indication for this examination in [facility]: * Fracture, shoulder TECHNIQUE: Multidetector-row CT of [...] sagittal planes. 3D images were created on [employer] workstation and interpreted. COMPARISON: Left shoulder radiographs [...] was initiated on 02/25/2025 2:47 PM, MessageID [id number]. Real Thompson PA-C IMG CT EXTREMITY Final Result * XR SHOULDER 2 VIEWS (LEFT) (02/19/2025 2:59 PM EDT) Narrative SYSTEMGENERATED, DOCUMENTATION - 02/19/2025 3:00 PM EDT This image report has been auto-finalized and has not been read by a Radiologist. Interpretation has been included in the provider encounter note for this date of service. Real Thompson PA-C IMG XR UPPER EXTREMITY Final Result * ORTHOPEDIC INJURY TREATMENT (02/18/2025 9:53 PM EDT) Narrative Aamir Gold MD - 02/18/2025 9:53 PM EDT Aamir Gold MD 02/18/2025 9:54 PM Orthopedic Injury Treatment/Splint/Cast Application Date/Time: 02/18/2025 9:53 PM Performed by: Aamir Gold MD Authorized by: Aamir Gold MD Injury Injury location: Shoulder Location details: Left shoulder Injury type: Fracture Fracture type: greater humeral tuberosity Pre-procedure assessment Neurovascular status: Neurovascularly intact Distal perfusion: normal Neurological function: normal Range of motion: reduced Local anesthesia used?: No Anesthesia: See MAR for details Procedure details Manipulation performed?: Yes Skin traction used?: Yes Reduction successful?: Yes Confirmation: Reduction confirmed by x-ray Immobilization: Splint Supplies used: Shoulder immobilizer from OR. Post-procedure assessment Neurovascular status: Neurovascularly intact Distal perfusion: normal Neurological function: normal Range of motion: improved Patient tolerance: Patient tolerated the procedure well with no immediate complications Aamir Gold MD PROCEDURE/MINOR SURGICAL OR DERABLES Final Result * XR SHOULDER 2 VIEWS (LEFT) (02/18/2025 8:35 PM EDT) Anatomical Region Laterality Modality Shoulder Left Computed Radiogr aphy 02/18/2025 10:1 7 PM EDT Impressions 02/18/2025 11:22 PM EDT 1. Interval reduction of posterior shoulder dislocation with glenohumeral joint now in anatomic alignment. Redemonstrated severe impaction fracture of the anterior humeral head (reverse Hill-Sachs or Buckner defect). 2. Acromioclavicular joint widening up to 12 mm concerning for joint injury. ATTESTATION: Jono Mitchell as teaching physician, have reviewed the images for this case and if necessary edited the report originally created by Khalif Christianson. Narrative 02/18/2025 11:22 PM EDT XR SHOULDER 2 OR MORE VIEWS (LEFT) Referring clinician's provided indication for this examination in [facility]: Shoulder dislocation, post reduction; Posterior dislocation, status post reduction attempt COMPARISON: XR SHOULDER 2 OR MORE VIEWS (LEFT) 12:34:10.000 Procedure Note Jono Montemayor MD - 02/18/2025 XR SHOULDER 2 OR MORE VIEWS (LEFT) Referring clinician's provided indication for this examination in [facility]:Shoulder dislocation, post reduction; Posterior dislocation, status postreduction attempt COMPARISON: XR SHOULDER 2 OR MORE VIEWS (LEFT) 12:34:10.000 IMPRESSION: 1. Interval reduction of posterior shoulder dislocation with glenohumeraljoint now in anatomic alignment. Redemonstrated severe impaction fractureof the anterior humeral head (reverse Hill-Sachs or Buckner defect). 2. Acromioclavicular joint widening up to 12 mm concerning for jointinjury. ATTESTATION: Jono Mitchell as teaching physician, have reviewed theimages for this case and if necessary edited the report originally createdby Khalif Christianson. us Aamir Gold MD IMG XR UPPER EXTREMITY Lis l Result * XR SHOULDER 2 VIEWS (LEFT) (02/18/2025 12:38 PM EDT) Narrative SYSTEMGENERATED, DOCUMENTATION - 02/18/2025 12:38 PM EDT This image report has been auto-finalized and has not been read by a Radiologist. Interpretation has been included in the provider encounter note for this date of service. us Real Thompson PA-C IMG XR UPPER EXTREMITY Final Result * ECG 12-LEAD (01/28/2025 12:04 PM EDT) Only the most recent of2 resultswithin the time period is included. Systolic Blood Pressure [facility] Diastolic Blood Pressure [facility] Ventricular Rate EKG/MIN 87 BPM [facility] Atrial Rate 87 BPM [facility] [place] Interval 172 ms [facility] QRS Duration 178 ms [facility] QT Interval 392 ms [facility] QTC Interval 471 ms [facility] P [place] 40 degrees [facility] R Wave [place] 62 degrees [facility] T Wave [place] -78 degrees [facility] 01/28/2025 12:0 4 PM EDT 02/05/2025 5:56 AM EDT Narrative [facility] - 02/05/2025 5:56 AM EDT LOC: [id number] DX: CARDIOMYOPATHY REF: DAISY CHILD NORMAL SINUS RHYTHM POSSIBLE LEFT ATRIAL ENLARGEMENT LEFT BUNDLE BRANCH BLOCK WHEN COMPARED WITH ECG OF 30-Oct-2023 10:36, NO SIGNIFICANT CHANGE WAS FOUND us Daisy Child CHARHOUSE WORK[employer] ECG ORDERABLES Final Result [facility] * MRI BRAIN (SEIZURE) WITH AND WITHOUT CONTRAST (12/26/2024 4:49 PM EDT) [facility] FACTORY PROCESS WORKERS COMMENT 2-3 mm nonenhancing cystic structure in the right mesial temporal lobe. [facility]GB IMG RECOMMENDATION COMMENT right temporal lobe cystic structure with surruounding gliosis. [facility] Anatomical Region Laterality Modality Head Magnetic Resonan ce 12/30/2024 2:15 PM EDT Impressions 12/30/2024 2:42 PM EDT 1. There is a 2 to 3 mm nonenhancing cystic structure in the right mesial temporal lobe with adjacent T2/FLAIR hyperintensity that may represent a prominent perivascular space with surrounding gliosis. 2. Partially visualized 4.3 cm right occipital scalp probable lipoma. RECOMMENDATIONS: Follow up MRI brain with and without contrast to assess for changes/possible underlying lesion. A clinically significant result was initiated on 12/30/2024 2:42 PM, Message ID [id number]. Narrative 12/30/2024 2:42 PM EDT MRI BRAIN (SEIZURE) WITH AND WITHOUT CONTRAST Referring clinician's provided indication for this examination in [facility]: Outside Radiology Order; seizure TECHNIQUE: Multi-sequence, multi-planar MRI of the brain was performed before and after intravenous contrast. COMPARISON: CT HEAD WITHOUT CONTRAST FINDINGS: Brain Parenchyma: The hippocampi are symmetric in size and demonstrate normal internal architecture and signal intensity bilaterally. There is a 2 to 3 mm nonenhancing cystic structure in the right mesial temporal lobe with adjacent T2/FLAIR hyperintensity (9-31). No evidence of acute infarct or hemorrhage. No abnormal parenchymal enhancement. Mild to moderate periventricular and subcortical white matter T2/FLAIR hyperintensities are seen, which are nonspecific findings that can be seen in the setting of chronic small vessel disease. Ventricular System and Extra-Axial Spaces: No evidence of midline shift or hydrocephalus. Extracranial Structures: Arterial flow voids in the skull base are present. Patient is status post left lens replacement. Trace scattered mucosal thickening is seen throughout the paranasal sinuses. The mastoids are clear. There is a partially visualized fatty lesion with 2 to 3 mm peripherally enhancing component overlying the occipital scalp measuring 22 x 43 mm on axial images. This is overall similar to June 2023. Procedure Note Kendrick Trejo MD - 12/30/2024 MRI BRAIN (SEIZURE) WITH AND WITHOUT CONTRAST Referring clinician's provided indication for this examination in [facility]:Outside Radiology Order; seizure TECHNIQUE: Multi-sequence, multi-planar MRI of the brain was performedbefore and after intravenous contrast. COMPARISON: CT HEAD WITHOUT CONTRAST FINDINGS: Brain Parenchyma: The hippocampi are symmetric in size and demonstratenormal internal architecture and signal intensity bilaterally. There is a2 to 3 mm nonenhancing cystic structure in the right mesial temporal lobewith adjacent T2/FLAIR hyperintensity (9-31). No evidence of acute infarct or hemorrhage. No abnormal parenchymalenhancement. Mild to moderate periventricular and subcortical white matter T2/FLAIRhyperintensities are seen, which are nonspecific findings that can beseen in the setting of chronic small vessel disease. Ventricular System and Extra-Axial Spaces: No evidence of midline shift orhydrocephalus. Extracranial Structures: Arterial flow voids in the skull base arepresent. Patient is status post left lens replacement. Trace scatteredmucosal thickening is seen throughout the paranasal sinuses. The mastoidsare clear. There is a partially visualized fatty lesion with 2 to 3 mm peripherallyenhancing component overlying the occipital scalp measuring 22 x 43 mm onaxial images. This is overall similar to June 2023. IMPRESSION: 1. There is a 2 to 3 mm nonenhancing cystic structure in the right mesialtemporal lobe with adjacent T2/FLAIR hyperintensity that may represent aprominent perivascular space with surrounding gliosis. 2. Partially visualized 4.3 cm right occipital scalp probable lipoma. RECOMMENDATIONS: Follow up MRI brain with and without contrast to assess forchanges/possible underlying lesion. A clinically significant result was initiated on 12/30/2024 2:42 PM, MessageID [id number]. Juan Ramon Soler MD IM MR HEAD/NECK Final Resul t * CT CHEST WITH CONTRAST (12/11/2024 11:26 AM EDT) Anatomical Region Laterality Modality Chest Computed Tomogra phy 12/18/2024 9:53 AM EDT Impressions 12/18/2024 10:20 AM EDT 1. Surgical changes of right lower lobar segmentectomy without residual/recurrent lesion. 2. Stable calcified and noncalcified pulmonary nodules. No new or enlarging nodules are identified. Follow-up as per clinical protocol. 3. No progressive adenopathy. Narrative 12/18/2024 10:[address] CHEST WITH CONTRAST Referring clinician's provided indication for this examination in [facility]: * Non- small cell lung cancer, monitor. TECHNIQUE: Multidetector CT of the chest was performed with intravenous contrast using tailored dose modulation techniques. COMPARISON: CT chest dated June 06, 2024. CT chest dated November 27, 2023. CT chest dated May 29, 2023. FINDINGS: Devices/Tubes/Lines: None. Mediastinum: The thyroid gland is homogeneous. No nodules. There is no anterior or posterior mediastinal mass. No acute esophageal abnormality. The heart is of normal size without pericardial effusion. Three-vessel left-sided aortic arch. No aneurysm. Mild coronary artery calcifications are present. Lymph Nodes: No enlarged supraclavicular, axillary, mediastinal, or hilar lymph nodes. Lungs: The central airways are patent. No endotracheal masses are identified. There are surgical changes of right lower lobar segmentectomy with stable postoperative changes and associated linear scarring. Some volume loss within the right hemithorax. Mild biapical scarring is identified. No confluent lobar consolidation is identified. There are stable, scattered granulomas identified within the lungs. There is a intrapulmonary lymph node identified within the left major fissure measuring 3 to 4 mm unchanged (image 152, series 5). An additional intrapulmonary lymph node measuring 3 mm is present more proximally within the left major fissure (image 165, series 5). No new or enlarging nodules are present. Pleura: Trace right pleural effusion and associated pleural thickening, similar to the prior exam. No pneumothorax is present. Biapical scarring, partially calcified on the right, also stable. Upper abdomen: No acute abnormality is detected in the visualized upper abdomen. Absence of intravenous contrast limits sensitivity for detecting solid organ findings. Chest Wall: No chest wall mass. Bones: Multilevel degenerative changes, no suspicious lesions. Procedure Note Nine, Brandin Wilkerson MD - 12/18/2024 CT CHEST WITH CONTRAST Referring clinician's provided indication for this examination in Epic: *Non- small cell lung cancer, monitor. TECHNIQUE: Multidetector CT of the chest was performed with intravenouscontrast using tailored dose modulation techniques. COMPARISON: CT chest dated June 06, 2024. CT chest dated November 27, 2023.CT chest dated May 29, 2023. FINDINGS: Devices/Tubes/Lines: None. Mediastinum: The thyroid gland is homogeneous. No nodules. There is no anterior or posterior mediastinal mass. No acute esophagealabnormality. The heart is of normal size without pericardial effusion. Gpbbz-krttuojqhr-zfrwc aortic arch. No aneurysm. Mild coronary artery calcificationsare present. Lymph Nodes: No enlarged supraclavicular, axillary, mediastinal, or hilarlymph nodes. Lungs: The central airways are patent. No endotracheal masses areidentified. There are surgical changes of right lower lobar segmentectomywith stable postoperative changes and associated linear scarring. Somevolume loss within the right hemithorax. Mild biapical scarring isidentified. No confluent lobar consolidation is identified. There are stable, scattered granulomas identified within the lungs. Thereis a intrapulmonary lymph node identified within the left major fissuremeasuring 3 to 4 mm unchanged (image 152, series 5). An additionalintrapulmonary lymph node measuring 3 mm is present more proximally withinthe left major fissure (image 165, series 5). No new or enlarging nodulesare present. Pleura: Trace right pleural effusion and associated pleural thickening,similar to the prior exam. No pneumothorax is present. Biapical scarring,partially calcified on the right, also stable. Upper abdomen: No acute abnormality is detected in the visualized upperabdomen. Absence of intravenous contrast limits sensitivity for detectingsolid organ findings. Chest Wall: No chest wall mass. Bones: Multilevel degenerative changes, no suspicious lesions. IMPRESSION: 1. Surgical changes of right lower lobar segmentectomy withoutresidual/recurrent lesion. 2. Stable calcified and noncalcified pulmonary nodules. No new orenlarging nodules are identified. Follow-up as per clinical protocol. 3. No progressive adenopathy. us Matthews W Abiel DO IMG CT CHEST Final Resul t * (ABNORMAL) Urinalysis w/reflex Urine Culture (12/02/2024 1:47 PM EDT) COLOR Yellow Yellow [facility] CLARITY Clear [facility] GLUCOSE 3+(A) Negative [facility] BILI Negative Negative [facility] KETONES Trace(A) Negative [facility] SPECIFIC GRAVITY 1.015 1.005 - 1.030 [facility] BLOOD Negative Negative [facility] PH 6.0 5.0 - 8.0 [facility] Protein-UA Negative Negative [facility] NITRITE Negative Negative [facility] Leukocyte esterase, ur Negative Negative [facility] Urine (Urine) 12/02/2024 1:4 7 PM EDT 12/02/2024 1:57 PM EDT Aamir Gold MD URINE ORDERABLES Final Resu lt Performing Organization Address [facility]/ZIP Co de Phone Number [address] [address] * (ABNORMAL) LFTs (hepatic panel) (12/02/2024 12:06 PM EDT) ALKALINE PHOSPHATASE 99 39 - 117 U/L [facility] TOTAL BILIRUBIN 0.3 0.0 - 1.2 mg/dL [facility] DIRECT BILIRUBIN 0.1 0.0 - 0.2 mg/dL [facility] Bilirubin (Indirect) NOT CALCULATED 0 - 1.5 mg/dL [facility] AST 34 0 - 37 U/L [facility] ALT 35 0 - 40 U/L [facility] TOTAL PROTEIN 6.5 6.5 - 8.0 g/dL [facility] ALBUMIN 3.8(L) 3.9 - 4.8 g/dL [facility] GLOBULIN 2.7 1 - 4.8 g/dL [facility] A/G Ratio 1.41 1.00 - 4.80 RATIO [facility] Blood 12/02/2024 12:0 6 PM EDT 12/02/2024 12:12 PM EDT us Aamir Gold MD LAB BLOOD ORDERABLES Final Result Performing Organization Address [facility]/ZIP Co de Phone Number [address] [address] * (ABNORMAL) CBC and differential (12/02/2024 12:06 PM EDT) WBC 5.67 4.00 - 11.00 K/uL [facility] RBC 4.54 4.50 - 5.90 M/uL [facility] HGB 14.7 13.5 - 17.5 g/dL [facility] HCT 45.1 41.0 - 53.0 % [facility] PLT 190 150 - 450 K/uL [facility] MCV 99.3 80.0 - 100.0 fL [facility] MCH 32.4(H) 27.0 - 31.0 pg [facility] MCHC 32.6 32.0 - 36.0 g/dL [facility] RDW 12.7 11.5 - 14.5 % [facility] MPV 8.4 8.4 - 12.0 fL [facility] NRBC 0.00 0.00 /100 WBCs [facility] ABSOLUTE NRBC 0.00 0.00 K/uL [facility] DIFF METHOD Auto [facility] NEUTS 48.9 48.0 - 76.0 % [facility] LYMPHS 38.4 18.0 - 41.0 % [facility] MONOS 9.2 4.0 - 11.0 % [facility] EOS 2.6 0.0 - 5.0 % [facility] BASOS 0.5 0.0 - 1.5 % [facility] Granulocytes, immature (%) 0.4 0.0 - 0.9 % [facility] ABSOLUTE NEUTS 2.77 1.92 - 7.60 K/uL [facility] ABSOLUTE LYMPHS 2.18 0.72 - 4.10 K/uL [facility] ABSOLUTE MONOS 0.52 0.16 - 1.10 K/uL [facility] ABSOLUTE EOS 0.15 0.00 - 0.50 K/uL [facility] ABSOLUTE BASOS 0.03 0.00 - 0.15 K/uL [facility] Granulocytes, immature 0.02 0.00 - 0.09 K/uL [facility] Blood 12/02/2024 12:0 6 PM EDT 12/02/2024 12:12 PM EDT us Aamir Gold MD LAB BLOOD ORDERABLES Final Result [facility] [address] [place] [address] * (ABNORMAL) Basic metabolic panel (12/02/2024 12:06 PM EDT) SODIUM 138 133 - 146 mmol/L [facility] CHLORIDE 100 96 - 108 mmol/L [facility] POTASSIUM 3.7 3.3 - 5.1 mmol/L [facility] CO2 24 21 - 35 mmol/L [facility] BUN 12 6 - 19 mg/dL [facility] CREATININE 0.80 0.5 - 1.5 mg/dL [facility] GLUCOSE 146(H) 70 - 99 mg/dL [facility] CALCIUM 8.8 8.4 - 10.3 mg/dL [facility] EGFR 91 >59 mL/min/1.7 3m2 [facility] Comment:Estimated glomerular filtration rate calculated using the CKD-EPI refit equation. ANION GAP 18 10 - 20 mmol/L [facility] Blood 12/02/2024 12:0 6 PM EDT 12/02/2024 12:12 PM EDT us Aamir Gold MD LAB BLOOD ORDERABLES Final Result [facility] [address] [place] [address] * (ABNORMAL) Lipid panel (11/06/2024 12:19 PM EDT) HDL 69 mg/dL [facility] Comment: Interpretation <40 mg/dL: Low HDL cholesterol (major risk factor for CHD) Greater than or equal to 60 mg/dL: High HDL cholesterol ( negative risk factor for CHD) HDL - cholesterol is affected by a number of factors, e.g. smoking, excerise, hormones, sex and age. CHOLESTEROL 181 0 - 240 mg/dL [facility] TRIGLYCERIDES 163(H) 30 - 160 mg/dL [facility] LDL 79 50 - 129 mg/dL [facility] Comment: LDL levels in terms of risk for coronary heart disease: <100 mg/dL: Optimal 100-129 mg/dL: Near or above optimal 130-159 mg/dL: Borderline high 160-189 mg/dL: High >190 mg/dL: Very High CARDIAC RISK RATIO 2.6(L) 3.4 - 5.0 C [facility] Blood 11/06/2024 12:1 9 PM EDT 11/06/2024 12:24 PM EDT Harry Moyer MD LAB BLOOD ORDERABLES Fin al Result Performing Organization Address City/[facility]/ZIP Co de Phone Number [address] [address] * Hepatitis C antibody, qualitative (10/03/2023 1:55 PM EDT) HCV NON-REACTIV E NON-REACTI VE [facility] Blood 10/03/2023 1:55 PM EDT 10/03/2023 2:02 PM EDT Harry Moyer MD LAB BLOOD ORDERABLES Fin al Result Performing Organization Address [facility] Co de Phone Number [address] [address] * ENDOSCOPY, COLON (02/24/2022 12:51 PM EDT) Narrative Transcriptions Vee Milian MD - 02/24/2022 12:51 PM EDT Patient Name: Marty Patton MD:: VEE MILIAN MD Procedure Date: 02/24/2022 12:51 PM Date of : 1945 Age: 76 Admit Type: Outpatient Gender: Male Room: [facility] Referring MD: Malaika Okeefe Exam Type: Colonoscopy Indications: Colon cancer screening in patient at increasedrisk: Family history of colon polyps in [id number] relatives, Screening in patient at increased risk: Colorectal cancer in mother 60 or older,Surveillance: Personal history of adenomatous polyps on last colonoscopy > 5 years ago, Last colonoscopy: October2015 Medications: Propofol per Anesthesia Procedure: Informed consent was obtained from the patientafter discussion of the indications, limitations, alternatives, benefits, and risks of the procedure. Risks specifically discussed include but are not limited to medication reactions, missed lesions, bleeding, perforation, or the need for emergent surgery. Throughout the procedure, the patient's blood pressure, pulse, end-tidal CO2, and oxygensaturations were monitored continuously. The Olympus pediatric variable [id number]-[id number] #2 was introduced through the anus and advanced tothe cecum, identified by the appendiceal orifice, ileocecal valve and palpation. The colonoscopy was technically difficult and complex due to aredundant colon and significant looping. Successfulcompletion of the procedure was aided by applying abdominal pressure. The patient tolerated the procedure well. The quality of the bowel preparation was good. The ileocecal valve, appendiceal orifice, and rectumwere photographed. Complications: No immediate complications. Estimated blood loss:None. Findings: The perianal and digital rectal examinations were normal. Pertinent negatives include normalsphincter tone. Non-bleeding internal hemorrhoids were found during retroflexion. The hemorrhoids were moderate. Retroflexion in the right colon was performed. The colon (entire examined portion) wassignificantly redundant. Impression: - Non-bleeding internal hemorrhoids. - Redundant colon. - No specimens collected. Recommendation: - Continue present medications. - Repeat colonoscopy in 5 years for surveillance. VEE MILIAN MD 02/24/2022 1:29:06 PM This report has been signed electronically. Number of Addenda: 0 Note Initiated On: 02/24/2022 12:51 PM Procedure Code(s): --- Professional --- G0105, Colorectal cancer screening; colonoscopy on individual at high risk --- Technical --- G0105, Colorectal cancer screening; colonoscopy on individual at high risk Diagnosis Code(s): --- Professional --- Z83.71, Family history of colonic polyps Z80.0, Family history of malignant neoplasm of digestive organs Z86.010, Personal history of colonic polyps K64.8, Other hemorrhoids Q43.8, Other specified congenital malformations of intestine --- Technical --- Z83.71, Family history of colonic polyps Z80.0, Family history of malignant neoplasm of digestive organs Z86.010, Personal history of colonic polyps K64.8, Other hemorrhoids Q43.8, Other specified congenital malformations of intestine CPT copyright 2020 [employer]. All rights reserved. The codes documented in this report are preliminary and upon cut out and marking machine operator reviewmay be revised to meet current compliance requirements. Procedure Date: 02/24/2022 12:51:43 PM 30 [place] [address] Malaika Hidalgo MD GI PROCEDURE ORDERABLES F inal Result from Last 3 Months or Most Recently Relevant to Health Maintenance Insurance MEDICARE PART A & B [employer] MEDICARE ENHANCE SUPPLEMENT [facility] Address: [facility] [id number] [place] [address] MEDICARE PART A & B [employer] MEDICARE ENHANCE SUPPLEMENT MEDICARE PART A & [place] [address] [address] MEDICARE ENHANCE SUPPLEMENT MEDICARE PART A & B [facility] MEDIC[facility] ENHANCE SUPPLEMENT MEDICARE PART A & B [facility] MEDICARE ENHANCE SUPPLEMENT MEDICARE PART A & B [facility] MEDICARE ENHANCE SUPPLEMENT [facility] Address: [facility] [id number] [place] [address] MEDICARE PART A & B [employer] MEDIC[employer] ENHANCE SUPPLEMENT MEDICARE PART A & B MEDICARE ENHANCE SUPPLEMENT Member Subscriber Plan / [facility] Name:Colleen Marty Altamirano Relation to Subscriber:Self Name:Marty Macias Payer ID:[id number] (NAIC) Group ID:Not on file Type:O Address: [address] [place] [address] MEDICARE PART A & B Member Subscriber Plan / P[facility] Name:ColleenMarty Jr. Member ID:[id number] Relation to Subscriber:Self Name:Marty Macias Subscriber ID:[id number] Payer ID:[id number] Group ID:Not on file Type:Medicare Address: [employer] [address] [place] [address] MEDICARE ENHANCE SUPPLEMENT Member Subscriber Plan / Payer [facility] Name:Colleen, Martygabriella Altamirano Jr. 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 12/21/2018 10/04/2016 * Full Code (Latest Code Status on File) Date Activated Date Inactivated Comments 2021 12:40 PM Question Answer Comments Code Status Confirmed With: Patient * Full Code Date Activated Date Inactivated Comments 2021 6:59 AM 2021 12:40 PM Question Answer Comments Code Status Confirmed With: Patient * Full Code (Presumed) Date Activated Date Inactivated Comments 12/21/2018 2:44 PM 12/22/2018 3:03 PM Care Teams Stop Attacher Relationship Specialty Start Date End Date Harry Moyer MD [address] [place] [address] [email or web address] PCP - General Internal Medicine 09/26/24 Ronn Harris MD [address] [place] [phone] [email or web address] Historical LMR Provider 04/10/17 Debra Rasheed MD [address] [place] [address] [email or web address] Historical LMR Provider 04/10/17 Adwoa Mehta MD 4 [facility] Orthopedics & Sports Medicine, [facility] [place] [address] [email or web address] Historical LMR Provider 04/10/17 Byron Beebe DO 30 [place] [address] [email or web address] Primary Oncologist Hematology and Oncology 01/14/22 Additional Source Comments The information contained in this document represents components of the legal health record. It is not the complete legal health record.[facility]
--- OUTSIDE RECORDS SUMMARY | 2025-02-27 15:42 | XMS_ITS | Encounter Summary ---
Author Organization [facility] Address [address] [employer] [facility] [address] [place] [address] Phone Care Team Providers Care Health Services Director Name Role Phone Bea Monroy Claudy PEDRO Unavailable Aisha TaborP Unavailable Ronn Harris MD Unavailable [phone] Debra Rasheed MD Unavailable Adwoa Mehta MD Unavailable [phone] Malaika Hidalgo MD Primary Care Provider [phone] Byron Beebe DO Unavailable Malaika Hidalgo MD Unavailable Unknown, Unknown Primary Care Provider Malaika Parham MD Unavailable Harry Moyer MD Primary Care Provider + Encounter Details Date Type Department Care Team (Late st Contact Info) Description 10/30/2023 Procedure Pass [facility] [address] [place], [place] [phone] Social History Tobacco Use Types Packs/Day Years [...] st Contact Info) Description 12/18/2024 Procedure Pass [facility], Ct Scan - [facility] [address] [place] [address] 03/05/2025 9:00 AM EDT Office Visit [facility] Orthopedics & Sports Medicine [address] [place] [address] Gab Javed DO [address] [place] [address] Orthopedics & Sports Medicine, [facility] [place] [address] [email or web address] 03/07/2025 10:00 AM EDT Office Visit [facility] Sports Medicine [address] [place] [address] Andre Zarate MD, SHEMAR [address] [address] [email or web address] 03/31/2025 8:00 AM EDT Telemedicine [facility] Epilepsy Service 55 [facility], 8th Floor, [address] [place] [address] Lucia Samuel MD 55 [facility] Department of [address] [place] [address] [email or web address] 04/11/2025 2:00 PM EDT Office Visit [facility] Heart Failure & Transplantation 32 [facility], 5th Floor, [address] [place] [address] Raza Pan MD 55 [facility] [address] [place] [address] [email or web address] 10/01/2025 10:30 AM EDT Appointment [facility], Ct Scan - [address] [address] Byron Beebe, DO 30 [place] [address] ANA [email or web address] 10/08/2025 10:30 AM EDT Office Visit [facility] at [facility] 30 [place] [address] Byron Beebe, DO 30 [place] [address] [email or web address] documented as of this encounter Visit Diagnoses Not on filedocumented in this encounter Additional Health Concerns Assessment Noted Time PHQ-2 Depression Total Score: 0 01/04/20 22 2:34 PM EDT documented as of this encounter Care Teams Health Services Director Relationship Specialty Start Date End Date Malaika Hidalgo MD [address] [address] [email or web address] PCP - General Family Medicine 01/14/22 01/16/24 Unknown, Veena, PCP - General 01/17/24 09/25/24 Harry Moyer MD [address] [place] [address] [email or web address] PCP - General Internal Medicine 09/26/24 Bea Monroy DO [address] [place] [address] [email or web address] Historical LMR Provider 04/10/17 01/16/24 Aisha Tabor FNP [address] [place] [id number] Historical LMR Provider 04/10/17 01/16/24 Ronn Harris MD [address] [place] [address] 7 [place] [phone] [email or web address] Historical LMR Provider 04/10/17 Debra Rasheed MD [address] [place] [address] 7 [place] [address] Historical LMR Provider 04/10/17 Adwoa Mehta MD [address] [place] [address] Orthopedics & Sports Medicine, [place] [address] Historical LMR Provider 04/10/17 Byron Beebe DO [address] [place] [address] [email or web address] Primary Oncologist Hematology and Oncology 01/14/22 Malaika Hidalgo MD [address] [place] [address] 7 [place] [address] Insurance Assigned Provider 09/30/23 01/16/24 Malaika Hidalgo MD [address] [place] [address] 7 [place] [phone] Insurance Assigned Provider 09/30/23 07/01/24 documented as of this encounter Additional Source Comments The information contained in this document represents components of the legal health record. It is not the complete legal health record.[facility]
--- OUTSIDE RECORDS SUMMARY | 2025-02-27 15:42 | XMS_ITS | Encounter Summary ---
Author Organization [facility] Address [address] [place] [address] Phone Care Team Providers Care Financial Data Analyst Name Role Phone Ronn Harris MD Unavailable Debra Rasheed MD Unavailable Adwoa Mehta MD Unavailable Byron Beebe DO Unavailable Harry Moyer MD Primary Care Provider + Encounter Details Date Type Department Care Team (Late st Contact Info) Description 02/19/2025 Procedure Pass [facility], Ct Scan - [address] [address] Social History Tobacco Use Types Packs/Day Years [...] got money to buy more. Never True 02/18/2025 Within the past 6 months the food we bought just didn't last and we didn't have enough money to get more. Never True Residential Stability Answer Date Recor ded What is your housing situation today? I have adonay solis 02/18/2025 How many times have you move d in the past 12 months? Zero (I did not move) 02/18/2025 Paying for Meds Answer Date Recorded Do you have trouble paying for medicines? No 02/18/2025 Paying Utility Bills Answer Date Record ed Do you have trouble paying your heating or elect ricity bill? No 02/18/2025 Transportation Answer Date Recorded Has the lack of transportati on kept you from medical appointments or from getting medications? No 02/18/2025 Unemployment Answer Date Recorded Are you currently unemployed or working on a part-time or temporary basis, and looking for work? No 06/26/2021 Digital Access Answer Date Recorded No 02/18/2025 Yes 02/18/2025 Do you have reliable internet access at home? Ye s 02/18/2025 Do you have a device (e.g., phone, tablet, computer) with a working camera? Yes 02/18/2025 Intimate Partner Violence Answer Date R ecorded Are you denied basic needs s uch as food, clothing, or medical care? No 02/18/2025 In the past 12 months have y ou been in a relationship with a person who hurts, threatens, or tries to control you? No 02/18/2025 Are you denied basic needs s uch as food, clothing, or medical care? No 02/18/2025 In the past 12 months have y ou been in a relationship with a person who hurts, threatens, or tries to control you? No 02/18/2025 Sex and Gender Information Value Date Recorded Sex Assigned at Male 08/15/2020 10:42 AM EST Legal Sex Male 1:14 PM EDT Gender Identity Male 08/15/2020 10:42 AM EST Sexual Orientation Straight 08/15/2020 10 :42 AM EST documented as of this encounter Plan of Treatment Upcoming Encounters Date Type Department Care Team (Late st Contact Info) Description 12/18/2024 Procedure Pass [facility], Ct Scan [address] [address] 03/05/2025 9:00 AM EDT Office Visit [facility] Orthopedics & Sports Medicine [address] [place] [address] Gab Javed DO 4 [facility] Orthopedics & Sports Medicine, [facility] [place] [address] [email or web address] 03/07/2025 10:00 AM EDT Office Visit [facility] Sports [address] [address] Andre Zarate MD, SHEMAR [address] [address] [email or web address] 03/31/2025 8:00 AM EDT Telemedicine [facility] Epilepsy Service 55 [facility], 8th Floor, [address] [place] [address] Lucia Samuel MD 55 [facility] Department of Or[address]IGB[address] [place] [address] [email or web address] 04/11/2025 2:00 PM EDT Office Visit [facility] Heart Failure & Transplantation 32 [facility], 5th Floor, [address] [place] [address] Raza Pan MD 55 [facility] 5[address] [place] [address] [email or web address] 10/01/2025 10:30 AM EDT Appointment [address] [address] Byron Beebe DO 30 [place] [address] [email or web address] 10/08/2025 10:30 AM EDT Office Visit [facility] 30 [place] [address] Byron Beebe DO 30 [place] [address] [email or web address] documented as of this encounter Visit Diagnoses Not on filedocumented in this encounter Additional Health Concerns Assessment Noted Time PHQ-2 Depression Total Score: 0 01/04/20 22 2:34 PM EDT documented as of this encounter Care Teams Financial Data Analyst Relationship Specialty Start Date End Date Harry Moyer MD [address] [place] [address] [email or web address] PCP - General Internal Medicine 09/26/24 Ronn Harris MD [address] [place] [phone] [email or web address] Historical LMR Provider 04/10/17 Debra Rasheed MD [address] [place] [address] [email or web address] Historical LMR Provider 04/10/17 Adwoa Mehta MD [address] [place] [address] Orthopedics & Sports Medicine, [facility] [place] [address] [email or web address] Historical LMR Provider 04/10/17 Byron Beebe DO 30 [place] [address] [email or web address] Primary Oncologist Hematology and Oncology 01/14/22 documented as of this encounter Additional Source Comments The information contained in this document represents components of the legal health record. It is not the complete legal health record.[facility]
--- OUTSIDE RECORDS SUMMARY | 2025-02-27 15:42 | XMS_ITS | Encounter Summary ---
Author Organization [facility] Address [address] [place] [address] [place] [address] Phone Care Team Providers Care Revenue Integrity Analyst Name Role Phone Bea Monroy Claudy DO Unavailable Aisha Tabor [employer] Unavailable Ronn Harris MD Unavailable Debra Rasheed MD Unavailable Adwoa Mehta MD Unavailable [phone] Malaika Hidalgo MD Primary Care Provider [phone] Byron Beebe DO Unavailable Malaika Hidalgo MD Unavailable [phone] Unknown, Unknown Primary Care Provider Malaika Parham MD Unavailable [phone] Harry Moyer MD Primary Care Provider + Reason for Referral * Outpatient Procedure - Closed Specialty Diagnoses / Procedures Referred By Contallyson t Referred To Contact Radiology Diagnoses Encounter for screening for cardiovascular disorders Procedures US Aorta Duplex Complete Harry Moyer MD Phone: tel: fax: [email or web address] Referral ID Status Reason Start Date Expiration Date Visits Re quested Visits Authorized [id number] Closed 10/24/2023 10/23/2024 1 1 Encounter Details Date Type Department Care Team (Latest Contact Info) Description 10/24/2023 Transcribe Orders Virtual Department 30 [place] [address] Harry Moyer MD 243 [facility] [address] [place] [address] [email or web address] Encounter for screening for cardiovascular disorders (Primary Dx) Social History Tobacco Use Types [...] st Contact Info) Description 12/18/2024 Procedure Pass [facility], Ct Scan - [address] [address] 03/05/2025 9:00 AM EDT Office Visit [facility] Orthopedics & Sports Medicine [address] [place] [address] Gab Jvaed DO [address] [place] [address] Orthopedics & Sports Medicine[facility] [place] [address] 03/07/2025 10:00 AM EDT Office Visit [facility] Sports Medicine [address] [place] [address] Andre Zarate MD, SHEMAR [address] [address] 03/31/2025 8:00 AM EDT Telemedicine [facility] Ep[facility]psy Service 55 [facility], 8th Floor, [address] [place] [address] Lucia Samuel MD 55 [facility] Department of [id number] [place] [address] [email or web address] 04/11/2025 2:00 PM EDT Office Visit [facility] Heart Failure & Transplantation 32 [facility], 5th Floor, [address] [place] [address] Raza Pan MD [address] [employer] [address] [place] [address] [email or web address] 10/01/2025 10:30 AM EDT Appointment [facility], Ct Scan - [address] [address] Byron Beebe, [address] [address] [email or web address] 10/08/2025 10:30 AM EDT Office Visit [facility] at [address] [address] Byron Beebe, [address] [address] [email or web address] documented as of this encounter Results * US Aorta Duplex Complete (11/01/2023 10:18 AM EDT) Anatomical Region Laterality Modality Aorta Ultrasound 11/02/2023 1:08 PM EDT Impressions 11/02/2023 5:16 PM EDT Limited evaluation secondary to overlying bowel gas. Abdominal aortic ectasia, but no evidence of aneurysm.. Narrative 11/02/2023 5:16 PM EDT US AORTA DUPLEX COMPLETE ULTRASOUND OF THE AORTA AND COMMON ILIAC ARTERIES AND IVC TECHNIQUE: Duplex US examination of the abdominal aorta was performed using a combination of michel scale, color and pulsed wave Doppler. INDICATION: Abdominal mass, AAA suspected. COMPARISON: Sonography 04/02/2020 FINDINGS: Technically difficult exam secondary to significant overlying bowel gas demonstrates: Examination of the abdominal aorta demonstrates ectasia but no evidence of aneurysm. The abdominal aorta measures 2.4 x 2.4 cm proximally, 1.8 x 1.8 cm in its midportion, and 2.1 x 2.1 cm distally. The common iliac arteries are ectatic measuring 1.3 cm on the right and 1.2 cm on the left. Procedure Note Saamntha Edmonds MD - 11/02/2023 US AORTA DUPLEX COMPLETE ULTRASOUND OF THE AORTA AND COMMON ILIAC ARTERIES AND IVC TECHNIQUE: Duplex US examination of the abdominal aorta was performedusing a combination of michel scale, color and pulsed wave Doppler. INDICATION: Abdominal mass, AAA suspected. COMPARISON: Sonography 04/02/2020 FINDINGS: Technically difficult exam secondary to significant overlying bowel gasdemonstrates: Examination of the abdominal aorta demonstrates ectasia but no evidence ofaneurysm. The abdominal aorta measures 2.4 x 2.4 cm proximally, 1.8 x 1.8cm in its midportion, and 2.1 x 2.1 cm distally. The common iliac arteries are ectatic measuring 1.3 cm on the right and1.2 cm on the left. IMPRESSION: Limited evaluation secondary to overlying bowel gas. Abdominal aorticectasia, but no evidence of aneurysm.. us Harry Moyer MD IMG US ABDOMEN Final Re sult documented in this encounter Visit Diagnoses Diagnosis Encounter for screening for cardiovascular disorders- Primary Encounter for screening for cardiovascular disorders documented in this encounter Additional Health Concerns Assessment Noted Time PHQ-2 Depression Total Score: 0 01/04/20 22 2:34 PM EDT documented as of this encounter Care Teams Revenue Integrity Analyst Relationship Specialty Start Date End Date Malaika Hidalgo MD [address] [place] [address], [address] [place] [address] PCP - General Family Medicine 01/14/22 01/16/24 Unknown, MD Veena PCP - General 01/17/24 09/25/24 Harry Moyer MD [address] [place] [phone] [email or web address] PCP - General Internal Medicine 09/26/24 Bea Mornoy DO [address] [place] [address] Historical LMR Provider 04/10/17 01/16/24 Aisha Tabor FNP [address] [address] Historical LMR Provider 04/10/17 01/16/24 Ronn Harris MD [address] [place] [phone] [email or web address] Historical LMR Provider 04/10/17 Debra Rasheed MD [address] [address] Historical LMR Provider 04/10/17 Adwoa Mehta MD 4 [facility] Orthopedics & Sports Medicine, [facility] [place], [place] [address] Historical LMR Provider 04/10/17 Byron Beebe DO 30 [place] [address] ANA [email or web address] Primary Oncologist Hematology and Oncology 01/14/22 Malaika Hidalgo MD [address] [place] [address], [facility] 7 [place] [address] [email or web address] Insurance Assigned Provider 09/30/23 01/16/24 Malaika Hidalgo MD [address] [place] [address], [facility] 7 [place] [address] [email or web address] Insurance Assigned Provider 09/30/23 07/01/24 documented as of this encounter Additional Source Comments The information contained in this document represents components of the legal health record. It is not the complete legal health record[facility]
--- OUTSIDE RECORDS SUMMARY | 2025-02-27 15:42 | XMS_ITS | Encounter Summary ---
Author Organization [facility] Address [facility] [employer] [facility] [address] [place] [address] Phone Care Team Providers Care Testing Machine Operator Name Role Phone Bea Monroy Claudy PEDRO Unavailable Aisha Tabor Unavailable [phone] Ronn Harris MD Unavailable [phone] Debra Rasheed MD Unavailable Adwoa Mehta MD Unavailable [phone] Malaika Hidalgo MD Primary Care Provider [phone] Byron Beebe DO Unavailable Malaika Hidalgo MD Unavailable Unknown, Unknown Primary Care Provider Malaika Parham MD Unavailable Harry Moyer MD Primary Care Provider + Encounter Details Date Type Department Care Team (Late st Contact Info) Description 06/02/2023 Procedure Pass [facility], Ct Scan - [address] [id number] Social History Tobacco Use Types Packs/Day Years [...] high school, GED, job training, learning the Comoran language, technical skills, or developing parenting skills)? [...] st Contact Info) Description 12/18/2024 Procedure Pass [facility], Ct Scan - [facility] [address] [place] [address] 03/05/2025 9:00 AM EDT Office Visit [facility] Orthopedics & Sports Medicine [address] [place] [address] Gab Javed DO [address] [place] [address] Orthopedics & Sports Medicine, [facility] [place] [address] [email or web address] 03/07/2025 10:00 AM EDT Office Visit [facility] Sports Medicine [address] [place] [address] Andre Zarate MD, SHEMAR [address] [address] [email or web address] 03/31/2025 8:00 AM EDT Telemedicine [facility] Epilepsy Service 55 [facility], 8th Floor, [address] [place] [address] Lucia Samuel MD 55 [facility] Department of EnphqeueaNTXH168 [place] [address] [email or web address] 04/11/2025 2:00 PM EDT Office Visit [facility] Heart Failure & Transplantation 32 [facility], 5th Floor, [address] [place] [address] Raza Pan MD 55 [facility] [address] [place] [address] [email or web address] 10/01/2025 10:30 AM EDT Appointment [facility], Ct Scan - [address] [address] Byron Beebe, DO 30 [place] [address] ANA [email or web address] 10/08/2025 10:30 AM EDT Office Visit [facility] at [address] [address] Byron Beebe, DO 30 [place] [address] [email or web address] documented as of this encounter Visit Diagnoses Not on filedocumented in this encounter Additional Health Concerns Assessment Noted Time PHQ-2 Depression Total Score: 0 01/04/20 22 2:34 PM EDT documented as of this encounter Care Teams Testing Machine Operator Relationship Specialty Start Date End Date Malaika Hidalgo MD [address] [place] [address] [email or web address] PCP - General Family Medicine 01/14/22 01/16/24 Unknown, Veena, PCP - General 01/17/24 09/25/24 Harry Moyer MD [address] [place] [phone] [email or web address] PCP - General Internal Medicine 09/26/24 Bea Monroy DO [address] [place] [address] [email or web address] Historical LMR Provider 04/10/17 01/16/24 Aisha Tabor FNP [address] [place] [address] [email or web address] Historical LMR Provider 04/10/17 01/16/24 Ronn Harris MD [address] [place] [address] MIGUEL ANGEL FARFAN [phone] [email or web address] Historical LMR Provider 04/10/17 Debra Rasheed MD [address] [place] [address] MIGUEL ANGEL Farfan [address] [email or web address] Historical LMR Provider 04/10/17 Adwoa Mehta MD [address] [place] [address] Orthopedics & Sports Medicine, [place] [address] [email or web address] Historical LMR Provider 04/10/17 Byron Beebe DO [address] [place] [address] [email or web address] Primary Oncologist Hematology and Oncology 01/14/22 Malaika Hidalgo MD [address] [place] [address] 7 MIGUEL ANGEL Farfan [address] [email or web address] Insurance Assigned Provider 09/30/23 01/16/24 Malaika Hidalgo MD [address] [place] [address] MIGUEL ANGEL Farfan [address] [email or web address] Insurance Assigned Provider 09/30/23 07/01/24 documented as of this encounter Additional Source Comments The information contained in this document represents components of the legal health record. It is not the complete legal health record.[facility]
--- OUTSIDE RECORDS SUMMARY | 2025-02-27 15:42 | XMS_ITS | Encounter Summary ---
Author Organization [facility] Address [address] [facility] [address] [place] [address] Phone Care Team Providers Care Vegetable Specker Name Role Phone Ronn Harris MD Unavailable [phone] Debra Rasheed MD Unavailable [phone] Adwoa Mehta MD Unavailable Byron Beebe DO Unavailable Harry Moyer MD Primary Care Provider + Reason for Referral * Consultation (Urgent/Acute (Prioritized Outreach)) - New Request Specialty Diagnoses / Procedures Referred By Flower campbell Referred To Contact Diagnoses Humeral head fracture, left, closed, initial encounter System, Provider Not In, [facility] [address] [address] Referral ID Status Reason Start Date Expiration Date V isits Requested Visits Authorized [id number] New Request 02/25/2025 02/25/2026 1 1 Encounter Details Date Type Department Care Team (Late st Contact Info) Description 02/25/2025 Transcribe Orders [facility] Access Center - Virtual Department [address] [place] [address] System, Provider Not In, [facility] [address] [address] Humeral head fracture, left, closed, initial encounter (Primary Dx) Social History Tobacco Use Types [...] st Contact Info) Description 12/18/2024 Procedure Pass [facility], Ct Scan - [address] [address] 03/05/2025 9:00 AM EDT Office Visit [facility] Orthopedics & Sports Medicine [address] [place] [address] Gab Javed DO [address] [place] [address] Orthopedics & Sports Medicine, [facility] [place] [address] [email or web address] 03/07/2025 10:00 AM EDT Office Visit [facility] Sports Medicine [address] [place] [address] Andre Zarate MD, SHEMAR [address] [address] [email or web address] 03/31/2025 8:00 AM EDT Telemedicine [facility] Epilepsy Service 55 [facility], 8th Floor, [address] [place] [address] Lucia Samuel MD 55 [facility] Department of DcnpatmejONKB817 [place] [address] [email or web address] [facility] 04/11/2025 2:00 PM EDT Office Visit [facility] Heart Failure & Transplantation 32 [facility], 5th Floor, [address] [place] [address] Raza Pan MD [address] [address] [email or web address] 10/01/2025 10:30 AM EDT Appointment [facility], Ct Scan - [address] [address] Byron Beebe, DO 30 [place] [address] [email or web address] 10/08/2025 10:30 AM EDT Office Visit [facility] at [address] [address] Byron Beebe, [address] [address] [email or web address] Scheduled Referrals Name Type Priority Associated Diagnoses Order Schedule Ambulatory referral to [facility] Orthopedics - Employed Practices Outpatient Referral Routine Humeral head fracture, left, closed, initial encounter Ordered: 02/25/2025 documented as of this encounter Visit Diagnoses Diagnosis Humeral head fracture, left, closed, initial encounter- Primary documented in this encounter Additional Health Concerns Assessment Noted Time PHQ-2 Depression Total Score: 0 01/04/20 22 2:34 PM EDT documented as of this encounter Care Teams Vegetable Specker Relationship Specialty Start Date End Date Harry Moyer MD [address] [place] [address] [email or web address] PCP - General Internal Medicine 09/26/24 Ronn Harris MD [address] [address] [email or web address] Historical LMR Provider 04/10/17 Debra Rasheed MD [address] [place] [address] 7 [place] [address] [email or web address] Historical LMR Provider 04/10/17 Adwoa Mehta MD 4 [facility] Orthopedics & Sports Medicine, [facility] [place] [address] [email or web address] Historical LMR Provider 04/10/17 Byron Beebe DO 30 [place] [address] [email or web address] Primary Oncologist Hematology and Oncology 01/14/22 documented as of this encounter Additional Source Comments The information contained in this document represents components of the legal health record. It is not the complete legal health record.[facility]
--- OUTSIDE RECORDS SUMMARY | 2025-02-27 15:42 | XMS_ITS ---
Author Organization [facility] Address [address] [place] [address] Phone Care Team Providers Care Airline Flight Attendant Name Role Phone Ronn Harris MD Unavailable Debra Rasheed MD Unavailable [phone] Adwoa Mehta MD Unavailable [phone] Byron Beebe DO Unavailable [phone] Harry Moyer MD Primary Care Provider + Active Problems Patient Care Coordination No te Formatting of this note migh t be different from the original. Height 182.2cm no shoes 12/01/2022 Problem Noted Date Diagnosed Date Iron deficiency anemia, unspecified 09/29/2023 Squamous cell carcinoma of right lung 12/01/2022 Overview (12/01/2022): (Dr Byron Beebe, [facility]): resected stage I A2 squamous cell carcinoma [...] since 1999. [facility] Assessment & Plan [...] leave that up to him and his transportation operations manager. Assessment & Plan (12/03/2018 10:25 AM EDT): Asymptomatic, euvolemic Hold lisinopril, spironolactone the night before surgery Continue metoprolol and aspirin Benign prostatic hyperplasia without lower urinary tract symptoms 07/25/2017 Overview (11/15/2017): Sees Dr Villa for this. Current Treatment and Therapy Plans No current plan information found. Past Treatment and Therapy Plans Resolved Problems Problem Noted Date Diagnosed Date [...] of area. Patient will be referred to [facility] thoracic surgery. We will need to repeat PFTs to assess pulmonary function. With history of cardiomyopathy, will repeat an ECHO for cardiac clearance for potential surgery. Assessment & Plan (03/18/2020 8:56 PM EDT): Most recent CT scan 07/14 showed some presumed inflammatory changes but no new nodules. His transportation operations manager Dr Gold told him there was no [...]
--- OUTSIDE RECORDS SUMMARY | 2025-02-27 15:42 | XMS_ITS | Encounter Summary ---
Author Organization [facility] Address [address] [place] [address] Phone Care Team Providers Care Mat Cutter Name Role Phone Ronn Harris MD Unavailable [phone] Debra Rasheed MD Unavailable Adwoa Mehta MD Unavailable [phone] Byron Beebe DO Unavailable Harry Moyer MD Primary Care Provider + Encounter Details Date Type Department Care Team (Late st Contact Info) Description 11/08/2024 Community Orders [facility] Harry Moyer MD [address] [facility] [address] [place] [address] [email or web address] Elevated alkaline phosphatase level (Primary Dx); Abnormal liver enzymes Social History Tobacco Use Types Packs/Day Years [...] housing situation today? I have adonay solis 06/26/2021 How many times have you move [...] st Contact Info) Description 12/18/2024 Procedure Pass [facility], Ct Scan [address] [address] 03/05/2025 9:00 AM EDT Office Visit [facility] Orthopedics & Sports Medicine [address] [place] [address] Gab Javed DO [address] [place] [address] Orthopedics & Sports Medicine, [facility] [place] [address] [email or web address] 03/07/2025 10:00 AM EDT Office Visit [facility] [address] [address] Andre Zarate MD, SHEMAR [address] [address] [email or web address] 03/31/2025 8:00 AM EDT Telemedicine [facility] Epilepsy Service 55 [facility], 8th Floor, [address] [place] [address] Lucia Samuel MD 55 [facility] Department of SotikirasMMCG628 [place] [address] [email or web address] 04/11/2025 2:00 PM EDT Office Visit [facility] Heart Failure & Transplantation 32 [place] [facility], 5th Floor, [address] [place] [address] Raza Pan MD 55 [facility] [address] [place] [address] [email or web address] 10/01/2025 10:30 AM EDT Appointment [facility], Ct Scan [address] [address] Byron Beebe, 30 [place] [address] [email or web address] 10/08/2025 10:30 AM EDT Office Visit [facility] [place] [address] [place] [address] Byron Beebe 30 [place] [address] [email or web address] documented as of this encounter Results * US ABDOMEN LIMITED RIGHT UPPER QUADRANT (11/13/2024 9:30 AM EDT) Anatomical Region Laterality Modality Abdomen Ultrasound 11/13/2024 9:58 AM EDT Impressions 11/13/2024 10:00 AM EDT Echogenic liver, nonspecific, statistically most likely liver steatosis. Narrative 11/13/2024 10:00 AM EDT US ABDOMEN LIMITED RIGHT UPPER QUADRANT Referring clinician's provided indication for this examination in Psychiatric: Liver disease, chronic, fibrosis suspected; Fatty liver/steatohepatitis; elevated Alk phos, AST/ALT TECHNIQUE: US Abdominal limited right upper quadrant. COMPARISON: CT chest June 06, 2024. FINDINGS: Liver: Diffusely increased echogenicity, with heterogeneous echotexture, suggestive of fatty liver. Main Portal Vein: Patent with normal direction of flow. Gallbladder: No gallstones or gallbladder wall thickening. Gonzalez's Sign: Negative. Biliary: No intrahepatic or extrahepatic biliary ductal dilatation. The common bile duct measures 3 mm. Procedure Note James Dick MD, PhD - 11/13/2024 US ABDOMEN LIMITED RIGHT UPPER QUADRANT Referring clinician's provided indication for this examination in Psychiatric:Liver disease, chronic, fibrosis suspected; Fatty liver/steatohepatitis;elevated Alk phos, AST/ALT TECHNIQUE: US Abdominal limited right upper quadrant. COMPARISON: CT chest June 06, 2024. FINDINGS: Liver: Diffusely increased echogenicity, with heterogeneous echotexture,suggestive of fatty liver. Main Portal Vein: Patent with normal direction of flow. Gallbladder: No gallstones or gallbladder wall thickening. Gonzalez's Sign: Negative. Biliary: No intrahepatic or extrahepatic biliary ductal dilatation. The common bile duct measures 3 mm. IMPRESSION: Echogenic liver, nonspecific, statistically most likely liver steatosis. Harry Moyer MD IMG US ABDOMEN Final Re sult documented in this encounter Visit Diagnoses Diagnosis Elevated alkaline phosphatase level- Primary Abnormal liver enzymes Elevated alkaline phosphatase level Abnormal liver enzymes documented in this encounter Additional Health Concerns Assessment Noted Time PHQ-2 Depression Total Score: 0 01/04/20 2:34 PM EDT documented as of this encounter Care Teams Mat Cutter Relationship Specialty Start Date End Date Harry Moyer MD [address] [address] [email or web address] PCP - General Internal Medicine 09/26/24 Ronn Harris MD [address] [address] [email or web address] Historical LMR Provider 04/10/17 Debra Rasheed MD [address] [address] [email or web address] Historical LMR Provider 04/10/17 Adwoa Mehta MD 4 [facility] Orthopedics & Sports Medicine[facility] [place] [address] Historical LMR Provider 04/10/17 Byron Beebe DO 30 [place] [address] [email or web address] Primary Oncologist Hematology and Oncology 01/14/22 documented as of this encounter Additional Source Comments The information contained in this document represents components of the legal health record. It is not the complete legal health record.[facility]
--- OUTSIDE RECORDS SUMMARY | 2025-02-27 15:42 | XMS_ITS | Encounter Summary ---
Author Organization [facility] Address [address] [facility] [address] [place] [address] Phone Care Team Providers Care Serology Teacher Name Role Phone Debra Rasheed MD Primary Care Provider Bea Monroy DO Unavailable Aisha Tabor Unavailable Ronn Harris MD Unavailable Debra Rasheed MD Unavailable [phone] Adwoa Mehta MD Unavailable [phone] Debra Rasheed MD Unavailable Malaika Hidalgo MD Primary Care Provider [phone] Byron Beebe DO Unavailable Malaika Hidalgo MD Unavailable Unknown, Unknown Primary Care Provider Malaika Parham MD Unavailable Harry Moyer MD Primary Care Provider + Reason for Visit * Reason Comments Medication Refill Encounter Details Date Type Department Care Team (Late st Contact Info) Description 12/26/2021 Refill [facility] Heart Failure & Transplantation 32 [facility], 5th Floor, [address] [place] [address] Corby Gold MD [email or web address] Medication Refill Social History Tobacco Use Types Packs/Day Years [...] high school, GED, job training, learning the Gabonese language, technical skills, or developing parenting skills)? [...] st Contact Info) Description 12/18/2024 Procedure Pass [facility], Ct Scan - [address] [address] 03/05/2025 9:00 AM EDT Office Visit [facility] Orthopedics & Sports Medicine 4 [place] [address] Gab Javed DO 4 [facility] Orthopedics & Sports [place] [address] [email or web address] 03/07/2025 10:00 AM EDT Office Visit [facility] Sports Medicine [address] [place] [address] Andre Zarate MD, SHEMAR [address] [address] [email or web address] 03/31/2025 8:00 AM EDT Telemedicine [facility] Epilepsy Service 55 [facility], 8th Floor, [address] [place] [address] Lucia Samuel MD 55 [facility] Department of [address] [place] [address] [email or web address] 04/11/2025 2:00 PM EDT Office Visit [facility] Heart Failure & Transplantation 32 [facility], 5th Floor, [address] [place] [address] Raza Pan MD [address] [address] [email or web address] 10/01/2025 10:30 AM EDT Appointment [facility], Ct Scan - [address] [address] Byron Beebe DO 30 [place] [address] [email or web address] 10/08/2025 10:30 AM EDT Office Visit [facility] [place] [address] [place] [address] Byron Beebe DO 30 [place] [address] ANA [email or web address] documented as of this encounter Visit Diagnoses Not on filedocumented in this encounter Additional Health Concerns Assessment Noted Time PHQ-2 Depression Total Score: 0 06/26/19 11:41 AM EST documented as of this encounter Care Teams Serology Teacher Relationship Specialty Start Date End Date Debra Rasheed MD 234 [facility] 7 [place] [address] PCP - General 02/24/17 01/13/22 Malaika Hidalgo MD 234 [facility] 7 [place] [address] PCP - General Family Medicine 01/14/22 01/16/24 Unknown, Veena, PCP - General 01/17/24 09/25/24 Harry Moyer MD [address] [place] [address] [email or web address] PCP - General Internal Medicine 09/26/24 Bea Monroy DO 234 [facility] 7 [place] [address] Historical LMR Provider 04/10/17 01/16/24 Aisha Tabor FNP 234 [facility] 7 [place] [address] Historical LMR Provider 04/10/17 01/16/24 Ronn Harris MD [address] [place] [address] 7 [place] FARFAN [phone] [email or web address] Historical LMR Provider 04/10/17 Debra Rasheed MD [address] [place] [address] 7 MIGUEL ANGEL Farfan [address] [email or web address] Historical LMR Provider 04/10/17 Adwoa Mehta MD [address] [place] [address] Orthopedics & Sports Medicine, [place] [address] Historical LMR Provider 04/10/17 Debra Rasheed MD [address] [place] [address] 7 [place]EL Farfan [phone] Insurance Assigned Provider 01/27/18 10/01/22 Byron Beebe DO [address] [place] [address] [email or web address] Primary Oncologist Hematology and Oncology 01/14/22 Malaika Hidalgo MD [address] [place] [address] 7 M[place]UEL ANGEL Farfan [id number] Insurance Assigned Provider 09/30/23 01/16/24 Malaika Hidalgo MD [address] [place] [address] 7 [place]GEL Farfan [phone] Insurance Assigned Provider 09/30/23 07/01/24 documented as of this encounter Additional Source Comments The information contained in this document represents components of the legal health record. It is not the complete legal health record.[facility]
--- OUTSIDE RECORDS SUMMARY | 2025-02-27 15:42 | XMS_ITS | Encounter Summary ---
Author Organization [facility] Address [address] [place] [address] Phone Care Team Providers Care Technology Training Associate Name Role Phone Ronn Harris MD Unavailable [phone] Debra Rasheed MD Unavailable [phone] Adwoa Mehta MD Unavailable [phone] Byron Beebe DO Unavailable [phone] Harry Moyer MD Primary Care Provider + Reason for Visit * Reason Comments Medication Refill Encounter Details Date Type Department Care Team (Late st Contact Info) Description 02/27/2025 Refill [facility] Heart Failure & Transplantation [address] [facility], 5th Floor, [address] [place] [address] Raza Pan MD [address] [place] [address] [email or web address] Medication Refill Social History Tobacco Use Types [...] st Contact Info) Description 12/18/2024 Procedure Pass [facility], Ct [facility] 30 [place] [address] 03/05/2025 9:00 AM EDT Office Visit [facility] Medical [facility] Orthopedics & Sports Medicine [address] [place] [address] Gab Javed DO 4 [facility] Orthopedics & Sports Medicine, [facility] [place] [address] [email or web address] 03/07/2025 10:00 AM EDT Office Visit [address] [address] Andre Zarate MD, SHEMAR [address] [place] [address] [email or web address] 03/31/2025 8:00 AM EDT Telemedicine [facility] Epilepsy Service [address] [facility], 8th Floor, [address] [place] [address] Lucia Samuel MD 55 [facility] Department of F[address]OT814 [place] [address] [email or web address] 04/11/2025 2:00 PM EDT Office Visit [facility] Heart Failure & Transplantation [address] [facility], 5th Floor, [address] [place] [address] Raza Pan MD [address] [place] [address] [email or web address] 10/01/2025 10:30 AM EDT Appointment [facility], Ct Scan - [address] [address] Byron Beebe, DO 30 [place] [address] [email or web address] 10/08/2025 10:30 AM EDT Office Visit [facility] at [address] [address] Byron Beebe, DO 30 [place] [address] [email or web address] documented as of this encounter Visit Diagnoses Not on filedocumented in this encounter Additional Health Concerns Assessment Noted Time PHQ-2 Depression Total Score: 0 01/04/20 22 2:34 PM EDT documented as of this encounter Care Teams Technology Training Associate Relationship Specialty Start Date End Date Harry Moyer MD [address] [place] [address] [email or web address] PCP - General Internal Medicine 09/26/24 Ronn Harris MD [address] [place] [address] [email or web address] Historical LMR Provider 04/10/17 Debra Rasheed MD [address] [place] [address] [email or web address] Historical LMR Provider 04/10/17 Adwoa Mehta MD [address] [place] [address] Orthopedics & Sports Medicine, [facility] [place] [address] [email or web address] Historical LMR Provider 04/10/17 Byron Beebe DO [address] [place] [address] [email or web address] Primary Oncologist Hematology and Oncology 01/14/22 documented as of this encounter Additional Source Comments The information contained in this document represents components of the legal health record. It is not the complete legal health record.[facility]
--- OUTSIDE RECORDS SUMMARY | 2025-02-27 15:42 | XMS_ITS | Encounter Summary ---
Author Organization [facility] Address Critical access hospital [facility] [address] [place] [address] Phone Care Team Providers Care Makeup Sales Advisor Name Role Phone Bea Monroy Claudy PEDRO Unavailable Aisha Tabor Unavailable Ronn Harris MD Unavailable Debra Rasheed MD Unavailable Adwoa Mehta MD Unavailable [phone] Malaika Hidalgo MD Primary Care Provider [phone] Byron Beebe DO Unavailable Malaika Hidalgo MD Unavailable [phone] Unknown, Unknown Primary Care Provider Malaika Parham MD Unavailable [phone] Harry Moyer MD Primary Care Provider + Encounter Details Date Type Department Care Team (Latest Contact Info) Description 12/15/2022 Transcribe Orders Virtual Department 30 [place], [place] [phone] Geronimo Jung MD 5 [place], [place] [phone] Cardiomyopathy, unspecified type (Primary Dx); Left bundle branch block Social History Tobacco Use Types Packs/Day Years [...] high school, GED, job training, learning the Lithuanian language, technical skills, or developing parenting skills)? [...] st Contact Info) Description 12/18/2024 Procedure Pass [facility], Ct Scan - [address] [address] 03/05/2025 9:00 AM EDT Office Visit [facility] Orthopedics & Sports Medicine [address] [place] [address] Gab Javed DO [address] [place] [address] Orthopedics & Sports Medicine, [facility] [place] [address] [email or web address] 03/07/2025 10:00 AM EDT Office Visit [address] [address] Andre Zarate MD, SHEMAR [address] [address] [email or web address] 03/31/2025 8:00 AM EDT Telemedicine [facility] Epilepsy Service 55 [facility], 8th Floor, [address] [place] [address] Lucia Samuel MD 55 [facility] Department of JhcxcvgznJWTB204 [place] [address] [email or web address] 04/11/2025 2:00 PM EDT Office Visit [facility] Heart Failure & Transplantation [address] [facility], 5th Floor, [address] [place] [address] Raza Pan MD [address] [address] [email or web address] 10/01/2025 10:30 AM EDT Appointment [facility], Ct Scan - [address] [address] Byron Beebe, [address] [address] [email or web address] [email or web address] 10/08/2025 10:30 AM EDT Office Visit [facility] 30 [place] [address] Byron Beebe, [address] [address] [email or web address] documented as of this encounter Results * ECG 12-LEAD (12/15/2022 2:10 PM EDT) Ventricular Rate EKG/MIN 67 BPM [facility] Atrial Rate 67 BPM [facility] CA Interval 176 ms [facility] QRS Duration 162 ms [facility] QT Interval 414 ms [facility] QTC Interval 437 ms [facility] P [place] 44 degrees [facility] R Wave [place] 57 degrees [facility] T Wave [place] -33 degrees [facility] 12/15/2022 2:10 PM EDT 12/16/2022 7:32 AM EDT Narrative [facility] - 12/16/2022 7:33 AM EDT Normal sinus rhythm Left bundle branch block Abnormal ECG When compared with ECG of 04-JUL-2022 01:29, Vent. rate has decreased BY 38 BPM Confirmed by Marlon Viera ([id number]) on 12/16/2022 7:32:57 AM us Geronimo Jung MD ECG ORDERABLES Final Re sult [facility] documented in this encounter Visit Diagnoses Diagnosis Cardiomyopathy, unspecified type- Primary Left bundle branch block Other left bundle branch block Cardiomyopathy, unspecified type Left bundle branch block Other left bundle branch block documented in this encounter Additional Health Concerns Assessment Noted Time PHQ-2 Depression Total Score: 0 01/04/20 22 2:34 PM EDT documented as of this encounter Care Teams Makeup Sales Advisor Relationship Specialty Start Date End Date Malaika Hidalgo MD 234 [facility] 7 [place] [address] [email or web address] PCP - General Family Medicine 01/14/22 01/16/24 Unknown, Veena, MD PCP - General 01/17/24 09/25/24 Harry Moyer MD [address] [place] [address] [email or web address] PCP - General Internal Medicine 09/26/24 Bea Monroy DO [address] [place] [address] 7 [place] [address] [email or web address] Historical LMR Provider 04/10/17 01/16/24 Aisha Tabor FNP [address] [place] [address] 7 [place] [address] [email or web address] Historical LMR Provider 04/10/17 01/16/24 Ronn Harris MD [address] [place] [address] 7 [place] [address] [email or web address] Historical LMR Provider 04/10/17 Debra Rasheed MD [address] [place] [address] 7 [place] [address] Historical LMR Provider 04/10/17 Adwoa Mehta MD [address] [place] [address] Orthopedics & Sports Medicine, [facility] [place] [address] Historical LMR Provider 04/10/17 Byron Beebe DO [address] [place] [address] [email or web address] Primary Oncologist Hematology and Oncology 01/14/22 Malaika Hidalgo MD [address] [place] [address] 7 [place] [address] [email or web address] Insurance Assigned Provider 09/30/23 01/16/24 Malaika Hidalgo MD [address] [place] [address] 7 [place] [address] [email or web address] Insurance Assigned Provider 09/30/23 07/01/24 documented as of this encounter Additional Source Comments The information contained in this document represents components of the legal health record. It is not the complete legal health record.[facility]
--- OUTSIDE RECORDS SUMMARY | 2025-02-27 15:42 | XMS_ITS | Encounter Summary ---
Author Organization [facility] Address Critical access hospital [employer] [facility] [address] [place] [address] Phone Care Team Providers Care Deburrer Strip Name Role Phone Bea Monroy Claudy PEDRO Unavailable [phone] Aisha Tabor Unavailable [phone] Ronn Harris MD Unavailable Debra Rasheed MD Unavailable Adwoa Mehta MD Unavailable [phone] Malaika Hidalgo MD Primary Care Provider [phone] Byron Beebe DO Unavailable Malaika Hidalgo MD Unavailable Unknown, Unknown Primary Care Provider Malaika Parham MD Unavailable Harry Moyer MD Primary Care Provider + Encounter Details Date Type Department Care Team (Late st Contact Info) Description 12/01/2022 Procedure Pass [facility], Ct Scan - [address] [phone] Social History Tobacco Use Types Packs/Day Years [...] high school, GED, job training, learning the Zimbabwean language, technical skills, or developing parenting skills)? [...] st Contact Info) Description 12/18/2024 Procedure Pass [facility], Ct Scan - [facility] [address] [place] [address] 03/05/2025 9:00 AM EDT Office Visit [facility] Orthopedics & Sports Medicine [address] [place] [address] Gab Javed DO [address] [place] [address] Orthopedics & Sports Medicine, [facility] [address] [email or web address] 03/07/2025 10:00 AM EDT Office Visit [facility] Sports Medicine [address] [place] [address] Andre Zarate MD, SHEMAR [address] [address] [email or web address] 03/31/2025 8:00 AM EDT Telemedicine [facility] Epilepsy Service 55 [facility], 8th Floor, [address] [place] [address] Lucia Samuel MD 55 [facility] Department of YalvicdrsZUIR928 [place] [address] [email or web address] 04/11/2025 2:00 PM EDT Office Visit [facility] Heart Failure & Transplantation [address] [facility], 5th Floor, [address] [place] [address] Raza Pan MD 55 [facility] 5B [place] [address] [email or web address] 10/01/2025 10:30 AM EDT Appointment [facility], Ct Scan - [address] [address] Byron Beebe, DO 30 [place] [address] ANA [email or web address] 10/08/2025 10:30 AM EDT Office Visit [facility] at [address] [address] Byron Beebe, DO 30 [place] [address] [email or web address] documented as of this encounter Visit Diagnoses Not on filedocumented in this encounter Additional Health Concerns Assessment Noted Time PHQ-2 Depression Total Score: 0 01/04/20 22 2:34 PM EDT documented as of this encounter Care Teams Deburrer Strip Relationship Specialty Start Date End Date Malaika Hidalgo MD [address] [place] [address] [email or web address] PCP - General Family Medicine 01/14/22 01/16/24 Unknown, Veena, PCP - General 01/17/24 09/25/24 Harry Moyer MD [address] [place] [address] [email or web address] PCP - General Internal Medicine 09/26/24 Bea Monroy DO [address] [place] [address] [email or web address] Historical LMR Provider 04/10/17 01/16/24 Aisha Tabor FNP [address] [place] [address] [email or web address] Historical LMR Provider 04/10/17 01/16/24 Ronn Harris MD [address] [place] [address] MIGUEL ANGEL FARFAN [phone] [email or web address] Historical LMR Provider 04/10/17 Debra Rasheed MD [address] [place] [address] MIGUEL ANGEL Farfan [address] [email or web address] Historical LMR Provider 04/10/17 Adwoa Mehta MD [address] [place] [address] Orthopedics & Sports Medicine, [place] [address] [email or web address] Historical LMR Provider 04/10/17 Byron Beebe DO [address] [place] [address] [email or web address] Primary Oncologist Hematology and Oncology 01/14/22 Malaika Hidalgo MD [address] [place] [address] 7 MIGUEL ANGEL Farfan [address] [email or web address] Insurance Assigned Provider 09/30/23 01/16/24 Malaika Hidalgo MD [address] [place] [address] MIGUEL ANGEL Farfan [address] [email or web address] Insurance Assigned Provider 09/30/23 07/01/24 documented as of this encounter Additional Source Comments The information contained in this document represents components of the legal health record. It is not the complete legal health record.[facility]
--- OUTSIDE RECORDS SUMMARY | 2025-02-27 15:42 | XMS_ITS | Encounter Summary ---
Author Organization [facility] Address [address] [address] Phone Care Team Providers Care Campus Administrative Assistant Name Role Phone Ronn Harris MD Unavailable [phone] Debra Rasheed MD Unavailable Adwoa Mehta MD Unavailable Byron Beebe DO Unavailable [phone] Harry Moyer MD Primary Care Provider + Encounter Details Date Type Department Care Team (Latest Contact Info) Description 11/04/2024 Community Orders [facility] Harry Moyer MD 243 [facility] 238 [place] [address] [email or web address] Preventative health care (Primary Dx) Social History Tobacco Use Types [...] st Contact Info) Description 12/18/2024 Procedure Pass [facility], Ct Scan - [address] [address] 03/05/2025 9:00 AM EDT Office Visit [facility] Orthopedics & Sports Medicine [address] [place] [address] Gab Javed DO [address] [place] [address] Orthopedics & Sports Medicine, [facility] [place] [address] [email or web address] 03/07/2025 10:00 AM EDT Office Visit [facility] Sports [address] [address] Andre Zarate MD, SHEMAR [address] [address] [email or web address] 03/31/2025 8:00 AM EDT Telemedicine [facility] Epilepsy Service 55 [facility], 8th Floor, [address] [place] [address] Lucia Samuel MD 55 [facility] Department of Zwe[address]zebVRJA512 [place] [address] [email or web address] 04/11/2025 2:00 PM EDT Office Visit [facility] Heart Failure & Transplantation 32 [facility], 5th Floor, [address] [place] [address] Raza Pan MD 55 [facility] 5B [place] [address] [email or web address] 10/01/2025 10:30 AM EDT Appointment [facility], Ct Scan - [address] [address] Byron Beebe DO 30 [place] [address] ANA [email or web address] 10/08/2025 10:30 AM EDT Office Visit [facility] Center at [address] [address] Byron Beebe TahiraDO 30 [place] [address] [email or web address] documented as of this encounter Results * (ABNORMAL) Lipid panel (11/06/2024 12:19 PM EDT) HDL 69 mg/dL [facility] Comment: Interpretation <40 mg/dL: Low HDL cholesterol (major risk factor for CHD) Greater than or equal to 60 mg/dL: High HDL cholesterol ( negative risk factor for CHD) HDL - cholesterol is affected by a number of factors, e.g. smoking, excerise, hormones, sex and age. CHOLESTEROL 181 0 - 240 mg/dL [facility] TRIGLYCERIDES 163(H) 30 - 160 mg/dL [facility] LDL 79 50 - 129 mg/dL [facility] Comment: LDL levels in terms of risk for coronary heart disease: <100 mg/dL: Optimal 100-129 mg/dL: Near or above optimal 130-159 mg/dL: Borderline high 160-189 mg/dL: High >190 mg/dL: Very High CARDIAC RISK RATIO 2.6(L) 3.4 - 5.0 C [facility] Blood 11/06/2024 12:1 9 PM EDT 11/06/2024 12:24 PM EDT us Harry Moyer MD LAB BLOOD ORDERABLES Fin al Result [address] [address] * (ABNORMAL) Hemoglobin A1c (11/06/2024 12:19 PM EDT) HEMOGLOBIN A1C 5.9(H) 4.3 - 5.8 % [facility] Blood 11/06/2024 12:1 9 PM EDT 11/06/2024 12:24 PM EDT us Harry Moyer MD LAB BLOOD ORDERABLES Fin al Result Performing Organization Address City/[facility]/ZIP Co de Phone Number [address] [address] * (ABNORMAL) Comprehensive metabolic panel (11/06/2024 12:19 PM EDT) SODIUM 130(L) 133 - 146 mmol/L [facility] POTASSIUM 4.7 3.3 - 5.1 mmol/L [facility] CHLORIDE 95(L) 96 - 108 mmol/L [facility] CO2 27 21 - 35 mmol/L [facility] BUN 16 6 - 19 mg/dL [facility] CREATININE 0.80 0.5 - 1.5 mg/dL [facility] GLUCOSE 89 70 - 99 mg/dL [facility] ALBUMIN 4.0 3.9 - 4.8 g/dL [facility] TOTAL PROTEIN 7.2 6.5 - 8.0 g/dL [facility] CALCIUM 8.9 8.4 - 10.3 mg/dL [facility] ALKALINE PHOSPHATASE 153(H) 39 - 117 U/L [facility] TOTAL BILIRUBIN 0.4 0.0 - 1.2 mg/dL [facility] AST 55(H) 0 - 37 U/L [facility] ALT 68(H) 0 - 40 U/L [facility] GLOBULIN 3.2 1 - 4.8 g/dL [facility] EGFR 91 >59 mL/min/1.7 3m2 [facility] Comment:Estimated glomerular filtration rate calculated using the CKD-EPI refit equation. ANION GAP 13 10 - 20 mmol/L [facility] Blood 11/06/2024 12:1 9 PM EDT 11/06/2024 12:24 PM EDT us Harry Moyer MD LAB BLOOD ORDERABLES Fin al Result Performing Organization Address City/[facility]/ZIP Co de Phone Number [address] [address] * (ABNORMAL) CBC and differential (11/06/2024 12:19 PM EDT) WBC 9.59 4.00 - 11.00 K/uL [facility] RBC 4.64 4.50 - 5.90 M/uL [facility] HGB 15.5 13.5 - 17.5 g/dL [facility] HCT 45.3 41.0 - 53.0 % [facility] PLT 205 150 - 450 K/uL [facility] MCV 97.6 80.0 - 100.0 fL [facility] MCH 33.4(H) 27.0 - 31.0 pg [facility] MCHC 34.2 32.0 - 36.0 g/dL [facility] RDW 12.5 11.5 - 14.5 % [facility] MPV 8.5 8.4 - 12.0 fL [facility] NRBC 0.00 0.00 /100 WBCs [facility] ABSOLUTE NRBC 0.00 0.00 K/uL [facility] DIFF METHOD Auto [facility] NEUTS 67.0 48.0 - 76.0 % [facility] LYMPHS 18.7 18.0 - 41.0 % [facility] MONOS 10.7 4.0 - 11.0 % [facility] EOS 2.7 0.0 - 5.0 % [facility] BASOS 0.5 0.0 - 1.5 % [facility] Granulocytes, immature (%) 0.4 0.0 - 0.9 % [facility] ABSOLUTE NEUTS 6.42 1.92 - 7.60 K/uL [facility] ABSOLUTE LYMPHS 1.79 0.72 - 4.10 K/uL [facility] ABSOLUTE MONOS 1.03 0.16 - 1.10 K/uL [facility] ABSOLUTE EOS 0.26 0.00 - 0.50 K/uL [facility] ABSOLUTE BASOS 0.05 0.00 - 0.15 K/uL [facility] Granulocytes, immature 0.04 0.00 - 0.09 K/uL [facility] Blood 11/06/2024 12:1 9 PM EDT 11/06/2024 12:24 PM EDT us Harry Moyer MD LAB BLOOD ORDERABLES Fin al Result [facility] [address] [place] [address] documented in this encounter Visit Diagnoses Diagnosis Preventative health care- Primary Routine general medical examination at a health care facility documented in this encounter Additional Health Concerns Assessment Noted Time PHQ-2 Depression Total Score: 0 01/04/20 2:34 PM EDT documented as of this encounter Care Teams Campus Administrative Assistant Relationship Specialty Start Date End Date Harry Moyer MD 243 [facility] 238 [place] [address] [email or web address] PCP - General Internal Medicine 09/26/24 Ronn Harris MD [address] [phone] [email or web address] Historical LMR Provider 04/10/17 Debra Rasheed MD [address] [place] [address] [email or web address] Historical LMR Provider 04/10/17 Adwoa Mehta MD [address] [place] [address] Orthopedics & Sports [place] [address] Historical LMR Provider 04/10/17 Byron Beebe DO 30 [place] [address] [email or web address] Primary Oncologist Hematology and Oncology 01/14/22 documented as of this encounter Additional Source Comments The information contained in this document represents components of the legal health record. It is not the complete legal health record.[facility]
--- OUTSIDE RECORDS SUMMARY | 2025-02-27 15:43 | XMS_ITS | Encounter Summary ---
Author Organization [facility] Address [address] [place] [address] [place] [address] Phone Care Team Providers Care Plant Cytologist Name Role Phone Debra Rasheed MD Primary Care Provider Bea Monroy DO Unavailable Aisha Tabor Unavailable Ronn Harris MD Unavailable Debra Rasheed MD Unavailable Adwoa Mehta MD Unavailable [phone] Debra Rasheed MD Unavailable Malaika Hidalgo MD Primary Care Provider [phone] Byron Beebe DO Unavailable Malaika Hidalgo MD Unavailable Unknown, Unknown Primary Care Provider Malaika Parham MD Unavailable Harry Moyer MD Primary Care Provider + Encounter Details Date Type Department Care Team (Late st Contact Info) Description 10/18/2021 Procedure Pass [facility], Ct Scan - [address] [address] Social History Tobacco Use Types Packs/Day Years [...] high school, GED, job training, learning the Yemeni language, technical skills, or developing parenting skills)? [...] st Contact Info) Description 12/18/2024 Procedure Pass [facility], Ct Scan - [address] [address] 03/05/2025 9:00 AM EDT Office Visit [facility] Orthopedics & Sports Medicine [address] [place] [address] Gab Javed DO [address] [facility] Orthopedics & Sports Medicine, [facility] [place] [address] [email or web address] 03/07/2025 10:00 AM EDT Office Visit [facility] [address] [place] [address] Andre Zarate MD, SHEMAR [address] [address] [email or web address] 03/31/2025 8:00 AM EDT Telemedicine [facility] Epilepsy Service 55 [facility], 8th Floor, [address] [place] [address] Lucia Samuel MD 55 [facility] Department of [email or web address] [place] [address] [email or web address] 04/11/2025 2:00 PM EDT Office Visit [facility] Heart Failure & Transplantation 32 [facility], 5th Floor, [address] [place] [address] Raza Pan MD [address] [address] [email or web address] 10/01/2025 10:30 AM EDT Appointment [facility], Ct Scan - [facility] [address] [place] [address] Byron Beebe, 30 [place] [address] [email or web address] 10/08/2025 10:30 AM EDT Office Visit [facility] at [facility] 30 [place] [address] Byron Beebe DO 30 [place] [address] [email or web address] documented as of this encounter Visit Diagnoses Not on filedocumented in this encounter Additional Health Concerns Infection Onset Date Last Indicated Resolved Time CoV-Presumed Comment:COVID-19 Added 11/17/2021 11/17/2021 11/19/2021 10:26 AM EDT CoV-Risk 11/18/2021 11/18/2021 11/19/2021 10:2 6 AM EDT COVID-19 Comment:Per Note Documentation 11/19/2021 11/18/2021 1:23 PM EDT Assessment Noted Time PHQ-2 Depression Total Score: 0 06/26/19 11:41 AM EST documented as of this encounter Care Teams Plant Cytologist Relationship Specialty Start Date End Date Debra Rasheed MD 234 [facility] 7 [place] [address] [email or web address] PCP - General 02/24/17 01/13/22 Malaika Hidalgo MD 234 [facility] 7 [place] [address] [email or web address] PCP - General Family Medicine 01/14/22 01/16/24 Unknown, Veena, PCP - General 01/17/24 09/25/24 Harry Moyer MD 243 [facility] 238 [place] [address] [email or web address] PCP - General Internal Medicine 09/26/24 Bea Monroy DO 234 [facility] 7 [place] [address] [email or web address] Historical LMR Provider 04/10/17 01/16/24 Aisha Tabor FNP [address] [place] [address], [facility] [address] [place] [address] [email or web address] Historical LMR Provider 04/10/17 01/16/24 Ronn Harris MD [address] [place] [address] 7 [place] [phone] [email or web address] Historical LMR Provider 04/10/17 Debra Rasheed MD [address] [place] [address] 7 [place] [address] [email or web address] Historical LMR Provider 04/10/17 Adwoa Mehta MD [address] [place] [address] Orthopedics & Sports Medicine, [place] [address] Historical LMR Provider 04/10/17 Debra Rasheed MD [address] [place] [address] 7 [place] [address] [email or web address] Insurance Assigned Provider 01/27/18 10/01/22 Byron Beebe DO [address] [place] [address] [email or web address] Primary Oncologist Hematology and Oncology 01/14/22 Malaika Hidalgo MD [address] [place] [address] 7 [place] [address] [email or web address] Insurance Assigned Provider 09/30/23 01/16/24 Malaika Hidalgo MD [address] [place] [address], [address] [place] [address] [email or web address] Insurance Assigned Provider 09/30/23 07/01/24 documented as of this encounter Additional Source Comments The information contained in this document represents components of the legal health record. It is not the complete legal health record.[facility]
--- OUTSIDE RECORDS SUMMARY | 2025-02-27 15:43 | XMS_ITS | Encounter Summary ---
Author Organization [facility] Address [address] [place] [address] [place] [address] Phone Care Team Providers Care Belt Molder Name Role Phone Debra Rasheed MD Primary Care Provider Marielena Llanes ELECTRICAL TEST ENGINEER Unavailable Real Welch DO Unavailable Bea Monroy DO Unavailable Sarah Long ELECTRICAL TEST ENGINEER Unavailable Gab Garrett MD Unavailable Gab Javed DO Unavailable Aisha Tabor YOUTH AGENT Unavailable Ronn Harris MD Unavailable Tess Chan ELECTRICAL TEST ENGINEER Unavailable Debra Rasheed MD Unavailable Adwoa Mehta MD Unavailable Pranav Harris MD Unavailable Ronn Shea MD Unavailable Debra Rasheed MD Unavailable Malaika Hidalgo MD Primary Care Provider [phone] Byron Beebe DO Unavailable Malaika Hidalgo MD Unavailable [phone] Unknown, Unknown Primary Care Provider Malaika Parham MD Unavailable [phone] Harry Moyer MD Primary Care Provider + Encounter Details Date Type Department Care Team (Late st Contact Info) Description 09/01/2020 Transcribe Orders [facility] [address] [place] [address] Sharon Berg NP Social History Tobacco Use Types Packs/Day Years [...] st Contact Info) Description 12/18/2024 Procedure Pass [facility], Ct Scan - [address] [address] 03/05/2025 9:00 AM EDT Office Visit [facility] Orthopedics & Sports Medicine [address] [place] [address] Gab Javed DO [address] [place] [address] Orthopedics & Sports Medicine, [place] [address] 03/07/2025 10:00 AM EDT Office Visit [facility] Sports Medicine [address] [place] [address] Andre Zarate MD, SHEMAR [address] [address] 03/31/2025 8:00 AM EDT Telemedicine [facility] Epilepsy Service 55 [facility], 8th Floor, [address] [place] [address] Lucia Samuel MD 55 [facility] Department of [id number] [place] [address] [email or web address] 04/11/2025 2:00 PM EDT Office Visit [facility] Heart Failure & Transplantation [address] [facility], 5th Floor, [address] [place] [address] Raza Pan MD 55 [facility] 5B [place] [address] [email or web address] 10/01/2025 10:30 AM EDT Appointment [facility], Ct Scan - [address] [address] Byron Beebe, DO [address] [place] [address] [email or web address] 10/08/2025 10:30 AM EDT Office Visit [facility] at [address] [address] Byron Beebe, [address] [address] [email or web address] documented as of this encounter Visit Diagnoses Not on filedocumented in this encounter Additional Health Concerns Infection Onset Date Last Indicated Resolved Time CoV-Presumed Comment:COVID-19 Added 11/17/2021 11/17/2021 11/19/2021 10:26 AM EDT CoV-Risk 11/18/2021 11/18/2021 11/19/2021 10:2 6 AM EDT COVID-19 Comment:Per Note Documentation 11/19/2021 11/18/2021 1:23 PM EDT documented as of this encounter Care Teams Belt Molder Relationship Specialty Start Date End Date Debra Rasheed MD 234 [facility] 7 [place] [address] [email or web address] PCP - General 02/24/17 01/13/22 Malaika Hidalgo MD 234 [facility] 7 [place] [address] [email or web address] PCP - General Family Medicine 01/14/22 01/16/24 Unknown, Veean, PCP - General 01/17/24 09/25/24 Harry Moyer MD [address] [place] [address] [email or web address] PCP - General Internal Medicine 09/26/24 Marielena Llanes NP 1 [place] [address] Historical LMR Provider 04/10/17 2 Real Welch DO [address] [place] [address] 7 [place] [address] [email or web address] Historical LMR Provider 04/10/17 07/03/21 Bea Monroy DO [address] [place] [address] 7 [place] [address] [email or web address] Historical LMR Provider 04/10/17 01/16/24 Sarah Long NP 29 [place] [address] Historical LMR Provider 04/10/17 2 Gab Garrett MD [address] [place] [address] Historical LMR Provider 04/10/17 Gab Javed DO [address] [place] [address] Orthopedics & Sports Medicine, [place] [address] Historical LMR Provider 04/10/17 07/03/21 Aisha Tabor FNP [address] [place] [address] [email or web address] Historical LMR Provider 04/10/17 01/16/24 Ronn Harris MD [address] [place] [phone] [email or web address] Historical LMR Provider 04/10/17 Tess Chan NP [address] [place] [address] Historical LMR Provider 04/10/17 2 Debra Rasheed MD [address] [place] [address] [email or web address] Historical LMR Provider 04/10/17 Adwoa Mehta MD [address] [place] [address] Orthopedics & Sports Medicine, [place] [address] Historical LMR Provider 04/10/17 Pranav Harris MD [address] [place], [place] [address] [place] [phone] [email or web address] Historical LMR Provider 04/10/17 07/03/21 Ronn Shea MD [address] [place] [address] Orthopedics & Sports Medicine, [facility] [place] [address] Historical LMR Provider 04/10/17 2 Debra Rasheed MD [address] [place] [address] [address] [place] [phone] Insurance Assigned Provider 01/27/18 10/01/22 Byron Beebe DO [address] [place] [address] [email or web address] Primary Oncologist Hematology and Oncology 01/14/22 Malaika Hidalgo MD [address] [place] [address] 7 [place] [phone] Insurance Assigned Provider 09/30/23 01/16/24 Malaika Hidalgo MD [address] [place] [address] 7 [place] [phone] Insurance Assigned Provider 09/30/23 07/01/24 documented as of this encounter Additional Source Comments The information contained in this document represents components of the legal health record. It is not the complete legal health record.[facility]
--- OUTSIDE RECORDS SUMMARY | 2025-02-27 15:43 | XMS_ITS | Encounter Summary ---
Author Organization [facility] Address [address] [place] [address] [place] [address] Phone Care Team Providers Care Glucose And Syrup Weigher Name Role Phone Debra Rasheed MD Primary Care Provider Marielena Llanes HOSPITALIST NOCTURNIST PHYSICIAN Unavailable Real Welch DO Unavailable Bea Monroy DO Unavailable Sarah Long HOSPITALIST NOCTURNIST PHYSICIAN Unavailable Gab Garrett MD Unavailable Gab Javed DO Unavailable Aisha Tabor SENIOR STATISTICAL PROGRAMMER Unavailable Ronn Harris MD Unavailable Tess Chan HOSPITALIST NOCTURNIST PHYSICIAN Unavailable Debra Rasheed MD Unavailable Adwoa Mehta MD Unavailable Pranav Harris MD Unavailable Ronn Shea MD Unavailable Debra Rasheed MD Unavailable Malaika Hidalgo MD Primary Care Provider [phone] Byron Beebe DO Unavailable Malaika Hidalgo MD Unavailable [phone] Unknown, Unknown Primary Care Provider Malaika Parham MD Unavailable [phone] Harry Moyer MD Primary Care Provider + Encounter Details Date Type Department Care Team (Late st Contact Info) Description 07/04/2018 Ancillary Orders [facility] 2013 [facility], [address] [place], [place] [id number] Papo Asif MD 55 [facility] 3 [place] [address] [email or web address] Pain Social History Tobacco Use Types Packs/Day Years Used Date Smoking Tobacco: Former Smokeless Tobacco: Never Alcohol Use Standard Drinks/Week [...] st Contact Info) Description 12/18/2024 Procedure Pass [facility], Ct Scan - [address] [address] 03/05/2025 9:00 AM EDT Office Visit [facility] Medical [facility] Orthopedics & Sports Medicine [address] [place] [address] Gab Javed DO 4 [facility] Orthopedics & Sports [place], [place] [address] 03/07/2025 10:00 AM EDT Office Visit [facility] Sports Medicine [address] [place] [address] Andre Zarate MD, SHEMAR [address] [address] [place] [address] [email or web address] 03/31/2025 8:00 AM EDT Telemedicine [facility] Epilepsy Service 55 [facility], 8th Floor, [address] [place] [address] Lucia Samuel MD 55 [facility] Department of RongchjbuVICE596 [place] [address] [email or web address] 04/11/2025 2:00 PM EDT Office Visit [facility] Heart Failure & Transplantation 32 [facility], 5th Floor, [address] [place] [address] Raza Pan MD 55 [facility] 5B [place] [address] [email or web address] 10/01/2025 10:30 AM EDT Appointment [facility], Ct Scan - [address] [address] Byron Beebe, DO [address] [place] [address] [email or web address] 10/08/2025 10:30 AM EDT Office Visit [facility] Center at [address] [address] Byron Beebe, DO [address] [place] [address] [email or web address] documented as of this encounter Results * XR KNEE 4 OR MORE VIEWS (BILATERAL) (07/04/2018 1:32 PM EST) Anatomical Region Laterality Modality Knee Bilateral, Knee Right, Knee Left Radiographic Imaging Impressions 07/05/2018 9:36 AM EST Bilateral knee osteoarthritis, left greater than right. Narrative 07/05/2018 9:36 AM EST XR KNEE 4 OR MORE VIEWS (BILATERAL) HISTORY: Bilateral knee pain and stiffness. BILATERAL KNEES: Two views of each knee were obtained, along with two views which include both knees in AP projection along with one including both knees in the sunrise projection projection. On the right, there is osteopenia but no lytic lesion, fracture or dislocation. There is marked medial compartment cartilage space narrowing with small spurs as well as mild patellofemoral spurring and a small joint effusion. There are no previous studies for comparison. On the left, there is osteopenia with no lytic lesion, fracture or dislocation. There is marked medial compartment cartilage space narrowing along with spurring and sclerosis. There is also moderate lateral compartment and patellofemoral spurring, with a small joint effusion. There are no previous studies for comparison. Procedure Note Lennox Beck MD - 07/05/2018 XR KNEE 4 OR MORE VIEWS (BILATERAL) HISTORY: Bilateral knee pain and stiffness. BILATERAL KNEES: Two views of each knee were obtained, along with twoviews which include both knees in AP projection along with one includingboth knees in the sunrise projection projection. On the right, there is osteopenia but no lytic lesion, fracture ordislocation. There is marked medial compartment cartilage space narrowingwith small spurs as well as mild patellofemoral spurring and a small jointeffusion. There are no previous studies for comparison. On the left, there is osteopenia with no lytic lesion, fracture ordislocation. There is marked medial compartment cartilage spacenarrowing along with spurring and sclerosis. There is also moderatelateral compartment and patellofemoral spurring, with a small jointeffusion. There are no previous studies for comparison. IMPRESSION: Bilateral knee osteoarthritis, left greater than right. Capri Riley CNP IMG XR LOWER EXTREMITY Final Result documented in this encounter Visit Diagnoses Diagnosis Pain Generalized pain Pain Generalized pain documented in this encounter Additional Health Concerns Infection Onset Date Last Indicated Resolved Time CoV-Presumed Comment:COVID-19 Added 11/17/2021 11/17/2021 11/19/2021 10:26 AM EDT CoV-Risk 11/18/2021 11/18/2021 11/19/2021 10:2 6 AM EDT COVID-19 Comment:Per Note Documentation 11/19/2021 11/18/2021 1:23 PM EDT documented as of this encounter Care Teams Glucose And Syrup Weigher Relationship Specialty Start Date End Date Debra Rasheed MD [address] [place] [address] 7 [place] [address] PCP - General 02/24/17 01/13/22 Malaika Hidalgo MD [address] [place] [address] 7 [place] [address] PCP - General Family Medicine 01/14/22 01/16/24 Unknown, Unknown, PCP - General 01/17/24 09/25/24 Harry Moyer MD [address] [place] [address] 238 [place] [address] [email or web address] PCP - General Internal Medicine 09/26/24 Marielena Llanes, HOSPITALIST NOCTURNIST PHYSICIAN 1 [place] [address] Historical LMR Provider 04/10/17 2 Real Welch DO [address] [place] [address] [email or web address] Historical LMR Provider 04/10/17 07/03/21 Bea Monroy DO [address] [place] [address] 7 [place] [address] Historical LMR Provider 04/10/17 01/16/24 Sarah Long NP 29 [place] [address] Historical LMR Provider 04/10/17 2 Gab Garrett MD [address] [place] [address] Historical LMR Provider 04/10/17 Gab Javed DO [address] [place] [address] Orthopedics & Sports Medicine, [place] [address] [email or web address] Historical LMR Provider 04/10/17 07/03/21 Aisha Tabor FNP [address] [place] [address] [email or web address] Historical LMR Provider 04/10/17 01/16/24 Ronn Harris MD [address] [place] [phone] [email or web address] Historical LMR Provider 04/10/17 Tess Chan NP [address] [place] [address] Historical LMR Provider 04/10/17 2 Debra Rasheed MD [address] [place] [address] [email or web address] Historical LMR Provider 04/10/17 Adwoa Mehta MD [address] [place] [address] Orthopedics & Sports [facility], [place] [address] [email or web address] Historical LMR Provider 04/10/17 Pranav Harris MD [address] [place] [address] [address] [place] [address] [email or web address] Historical LMR Provider 04/10/17 07/03/21 Ronn Shea MD [address] [place] [address] Orthopedics Sports [facility], [place] [address] Historical LMR Provider 04/10/17 2 Debra Rasheed MD [address] [place] [address] 7 [place] [phone] Insurance Assigned Provider 01/27/18 10/01/22 Byron Beebe DO [address] [place] [address] [email or web address] Primary Oncologist Hematology and Oncology 01/14/22 Malaika Hidalgo MD [address] [place] [address] 7 [place] [phone] Insurance Assigned Provider 09/30/23 01/16/24 Malaika Hidalgo MD [address] [place] [address] [address] [place] [phone] Insurance Assigned Provider 09/30/23 07/01/24 documented as of this encounter Additional Source Comments The information contained in this document represents components of the legal health record. It is not the complete legal health record.[facility]
--- OUTSIDE RECORDS SUMMARY | 2025-02-27 15:43 | XMS_ITS | Encounter Summary ---
Author Organization [facility] Address [address] [place] [address] [place] [address] Phone Care Team Providers Care Instructor Warper Name Role Phone Debra Rasheed MD Primary Care Provider Marielena Llanes ASSOCIATE RELATIONS SPECIALIST Unavailable Real Welch DO Unavailable Bea Monroy DO Unavailable Sarah Long ASSOCIATE RELATIONS SPECIALIST Unavailable Gab Garrett MD Unavailable Gab Javed DO Unavailable Aisha Tabor MOLDED CANDLES WICKER Unavailable Ronn Harris MD Unavailable Tess Chan ASSOCIATE RELATIONS SPECIALIST Unavailable Debra Rasheed MD Unavailable Adwoa Mehta MD Unavailable Pranav Harris MD Unavailable Ronn Shea MD Unavailable Debra Rasheed MD Unavailable Malaika Hidalgo MD Primary Care Provider [phone] Byron Beebe DO Unavailable Malaika Hidalgo MD Unavailable [phone] Unknown, Unknown Primary Care Provider Malaika Parham MD Unavailable [phone] Harry Moyer MD Primary Care Provider + Encounter Details Date Type Department Care Team (Late st Contact Info) Description 10/20/2017 Procedure Pass [facility] MRI. [facility] 1 55 [facility], 1st [place] [address] Social History Tobacco Use Types Packs/Day Years Used Date Smoking Tobacco: Never Smokeless Tobacco: Never Alcohol Use Standard Drinks/Week [...] st Contact Info) Description 12/18/2024 Procedure Pass [facility], Ct Scan - [address] [address] 03/05/2025 9:00 AM EDT Office Visit [facility] Medical [facility] Orthopedics & Sports Medicine [address] [place] [address] Gab Javed DO [address] [place] [address] Orthopedics & Sports [facility] [place] [address] 03/07/2025 10:00 AM EDT Office Visit [facility] Sports Medicine [address] [place] [address] Andre Zarate MD, SHEMAR [address] [address] 03/31/2025 8:00 AM EDT Telemedicine [facility] Epilepsy Service 55 [facility], 8th Floor, [address] [place] [address] Lucia Samuel MD 55 [facility] Department of [email or web address] [place] [address] [email or web address] 04/11/2025 2:00 PM EDT Office Visit [facility] Heart Failure & Transplantation [address] [facility], 5th Floor, [address] [place] [address] Raza Pan MD 55 [facility] 5B [place] [address] [email or web address] 10/01/2025 10:30 AM EDT Appointment [facility], Ct Scan - [address] [address] Byron Beebe, [address] [address] [email or web address] 10/08/2025 10:30 AM EDT Office Visit [facility] at [address] [address] Byron Beebe, [address] [address] [email or web address] documented as of this encounter Visit Diagnoses Not on filedocumented in this encounter Additional Health Concerns Infection Onset Date Last Indicated Resolved Time CoV-Presumed Comment:COVID-19 Added 11/17/2021 11/17/2021 11/19/2021 10:26 AM EDT CoV-Risk 11/18/2021 11/18/2021 11/19/2021 10:2 6 AM EDT COVID-19 Comment:Per Note Documentation 11/19/2021 11/18/2021 1:23 PM EDT documented as of this encounter Care Teams Instructor Warper Relationship Specialty Start Date End Date Debra Rasheed MD [address] [place] [address] 7 [place] [address] [email or web address] PCP - General 02/24/17 01/13/22 Malaika Hidalgo MD [address] [place] [address] 7 [place] [address] [email or web address] PCP - General Family Medicine 01/14/22 01/16/24 Unknown, Veena, MD PCP - General 01/17/24 09/25/24 Harry Moyer MD [address] [place] [address] [email or web address] PCP - General Internal Medicine 09/26/24 Marielena Llanes NP [address] [place] [address] Historical LMR Provider 04/10/17 2 Real Welch DO [address] [place] [address] [email or web address] Historical LMR Provider 04/10/17 07/03/21 Bea Monroy DO [address] [place] [address] Historical LMR Provider 04/10/17 01/16/24 Sarah Long NP [address] [place] [address] Historical LMR Provider 04/10/17 2 Gab Garrett MD [address] [place] [address] Historical LMR Provider 04/10/17 Gab Javed DO [address] [place] [address] Orthopedics & Sports [facility], [place] [address] Historical LMR Provider 04/10/17 07/03/21 Aisha Tabor FNP [address] [place] [address] 7 [place] [address] [email or web address] Historical LMR Provider 04/10/17 01/16/24 Ronn Harris MD [address] [place] [address] 7 [place] [phone] [email or web address] Historical LMR Provider 04/10/17 Tess Chan NP [address] [place] [address] Historical LMR Provider 04/10/17 2 Debra Rasheed MD [address] [place] [address] [email or web address] Historical LMR Provider 04/10/17 Adwoa Mehta MD [address] [place] [address] Orthopedics & Sports [facility], [place] [address] Historical LMR Provider 04/10/17 Pranav Harris MD [address] [place], [place] [address] [place] [address] [email or web address] Historical LMR Provider 04/10/17 07/03/21 Ronn Shea MD [address] [place] [address] Orthopedics & Sports Medicine, [facility] [place] [address] Historical LMR Provider 04/10/17 2 Debra Rasheed MD [address] [place] [address] 7 [place] [address] Insurance Assigned Provider 01/27/18 10/01/22 Byron Beebe DO [address] [place] [address] [email or web address] Primary Oncologist Hematology and Oncology 01/14/22 Malaika Hidalgo MD [address] [place] [address] 7 [place] [address] Insurance Assigned Provider 09/30/23 01/16/24 Malaika Hidalgo MD [address] [place] [address] 7 [place] [address] Insurance Assigned Provider 09/30/23 07/01/24 documented as of this encounter Additional Source Comments The information contained in this document represents components of the legal health record. It is not the complete legal health record.[facility]
--- OUTSIDE RECORDS SUMMARY | 2025-02-27 15:43 | XMS_ITS | Encounter Summary ---
Author Organization [facility] Address [facility] [address] [place] [address] Phone Care Team Providers Care Lead Presser Name Role Phone Bea Monroy Claudy PEDRO Unavailable Aisha TaborP Unavailable Ronn Harris MD Unavailable [phone] Debra Rasheed MD Unavailable Adwoa Mehta MD Unavailable [phone] Debra Rasheed MD Unavailable Malaika Hidalgo MD Primary Care Provider [phone] Byron Beebe DO Unavailable [phone] Malaika Hidalgo MD Unavailable [phone] Unknown, Unknown Primary Care Provider Malaiak Parham MD Unavailable [phone] Harry Moyer MD Primary Care Provider + Encounter Details Date Type Department Care Team (Late st Contact Info) Description 05/27/2022 Procedure Pass [facility], Ct Scan - [address] [address] Social History Tobacco Use Types Packs/Day Years [...] high school, GED, job training, learning the Hong Konger language, technical skills, or developing parenting skills)? [...] st Contact Info) Description 12/18/2024 Procedure Pass [facility], Ct Scan - [facility] 30 [place] [address] 03/05/2025 9:00 AM EDT Office Visit [facility] Orthopedics & Sports Medicine [address] [place] [address] [id number] Gab Javed, DO 4 [facility] Orthopedics & Sports [place], [place] [address] [email or web address] 03/07/2025 10:00 AM EDT Office Visit [facility] Medicine [address] [place] [address] Andre Zarate MD, SHEMAR [address] [address] [email or web address] 03/31/2025 8:00 AM EDT Telemedicine [facility] Epilepsy Service 55 [employer], 8th Floor, [address] [place] [address] Lucia Samuel MD 55 [facility] Department of YassqimvxJSQG161 [place] [address] [email or web address] 04/11/2025 2:00 PM EDT Office Visit [facility] Heart Failure & Transplantation 32 [facility], 5th Floor, [address] [place] [address] Raza Pan MD [address] [address] [email or web address] 10/01/2025 10:30 AM EDT Appointment [facility], Ct Scan - [address] [address] Byron Beebe, DO [address] [place] [address] [email or web address]. [facility] 10/08/2025 10:30 AM EDT Office [facility] at [address] [address] Byron Beebe, DO 30 [place] [address] [email or web address] documented as of this encounter Visit Diagnoses Not on filedocumented in this encounter Additional Health Concerns Assessment Noted Time PHQ-2 Depression Total Score: 0 01/04/20 22 2:34 PM EDT documented as of this encounter Care Teams Lead Presser Relationship Specialty Start Date End Date Malaika Hidalgo MD 234 [facility] 7 [place] [address] [email or web address] PCP - General Family Medicine 01/14/22 01/16/24 Unknown, Veena, PCP - General 01/17/24 09/25/24 Harry Moyer MD [address] [place] [address] [email or web address] PCP - General Internal Medicine 09/26/24 Bea Monroy DO 234 [facility] 7 [place] [address] [email or web address] Historical LMR Provider 04/10/17 01/16/24 Aisha Tabor FNP 234 [facility] 7 [place] [address] [email or web address] Historical LMR Provider 04/10/17 01/16/24 Ronn Harris MD 234 [facility] 7 [place] [address] [email or web address] Historical LMR Provider 04/10/17 Debra Rasheed MD 234 [facility] 7 [place] [address] Historical LMR Provider 04/10/17 Adwoa Mehta MD [address] [place] [address] Orthopedics & Sports Medicine, [facility] [place] [address] Historical LMR Provider 04/10/17 Debra Rasheed MD [address] [place] [address] 7 [place] [address] Insurance Assigned Provider 01/27/18 10/01/22 Byron Beebe DO [address] [place] [address] [email or web address] Primary Oncologist Hematology and Oncology 01/14/22 Malaika Hidalgo MD [address] [place] [address] 7 [place] [address] Insurance Assigned Provider 09/30/23 01/16/24 Malaika Hidalgo MD [address] [place] [address] 7 [place] [address] Insurance Assigned Provider 09/30/23 07/01/24 documented as of this encounter Additional Source Comments The information contained in this document represents components of the legal health record. It is not the complete legal health record.[facility]
--- OUTSIDE RECORDS SUMMARY | 2025-02-27 15:43 | XMS_ITS | Encounter Summary ---
Author Organization [facility] Address [address] [place] [address] [place] [address] Phone Care Team Providers Care Global Logistics Analyst Name Role Phone Debra Rasheed MD Primary Care Provider Marielena Llanes SOLAR ENERGY SYSTEMS DESIGNER Unavailable Real Welch DO Unavailable Bea Monroy DO Unavailable Sarah Long SOLAR ENERGY SYSTEMS DESIGNER Unavailable Gab Garrett MD Unavailable Gab Javed DO Unavailable Aisha Tabor TALENT PARTNER Unavailable Ronn Harris MD Unavailable Tess Chan SOLAR ENERGY SYSTEMS DESIGNER Unavailable Debra Rasheed MD Unavailable Adwoa Mehta MD Unavailable Pranav Harris MD Unavailable Ronn Shea MD Unavailable Debra Rasheed MD Unavailable Malaika Hidalgo MD Primary Care Provider [phone] Byron Beebe DO Unavailable Malaika Hidalgo MD Unavailable [phone] Unknown, Unknown Primary Care Provider Malaika Parham MD Unavailable [phone] Harry Moyer MD Primary Care Provider + Encounter Details Date Type Department Care Team (Late st Contact Info) Description 12/21/2018 Procedure Pass [facility] PERIOPERATIVE DEPT 2013 [place] [address] Social History Tobacco Use Types Packs/Day Years Used Date Smoking Tobacco: Former Cigarettes 1 5 1 969 - 1973 Smokeless Tobacco: Never Alcohol [...] st Contact Info) Description 12/18/2024 Procedure Pass [facility], Ct Scan - [address] [address] 03/05/2025 9:00 AM EDT Office Visit [facility] Medical [facility] Orthopedics & Sports Medicine [address] [place] [address] Gab Javed DO [address] [place] [address] Orthopedics & Sports [place] [address] [email or web address] 03/07/2025 10:00 AM EDT Office Visit [facility] Sports Medicine [address] [place] [address] Andre Zarate MD, SHEMAR [address] [address] 03/31/2025 8:00 AM EDT Telemedicine [facility] Epilepsy Service [address] [place] [address] 8th Floor, [address] [place] [address] Lucia Samuel MD 55 [facility] Department of [email or web address] [place] [address] [email or web address] 04/11/2025 2:00 PM EDT Office Visit [facility] Heart Failure & Transplantation 32 [facility], 5th Floor, [address] [place] [address] Raza Pan MD 55 [facility] 5B [place] [address] [email or web address] 10/01/2025 10:30 AM EDT Appointment [facility], Ct Scan - [address] [address] Byron Beebe, [address] [address] [email or web address] 10/08/2025 10:30 AM EDT Office Visit [facility] at [address] [address] Byron Beebe, [address] [address] [email or web address] documented as of this encounter Visit Diagnoses Not on filedocumented in this encounter Additional Health Concerns Infection Onset Date Last Indicated Resolved Time CoV-Presumed Comment:COVID-19 Added 11/17/2021 11/17/2021 11/19/2021 10:26 AM EDT CoV-Risk 11/18/2021 11/18/2021 11/19/2021 10:2 6 AM EDT COVID-19 Comment:Per Note Documentation 11/19/2021 11/18/2021 1:23 PM EDT documented as of this encounter Care Teams Global Logistics Analyst Relationship Specialty Start Date End Date Debra Rasheed MD [address] [place] [address] 7 [place] [address] [email or web address] PCP - General 02/24/17 01/13/22 Malaika Hidalgo MD [address] [place] [address] 7 [place] [address] [email or web address] PCP - General Family Medicine 01/14/22 01/16/24 Unknown, Veena, PCP - General 01/17/24 09/25/24 Harry Moyer MD [address] [place] [address] [email or web address] PCP - General Internal Medicine 09/26/24 Marielena Llanes NP [address] [place] [address] Historical LMR Provider 04/10/17 2 Real Welch DO [address] [place] [address] [email or web address] Historical LMR Provider 04/10/17 07/03/21 Bea Monroy DO [address] [place] [address] Historical LMR Provider 04/10/17 01/16/24 Sarah Long NP [address] [place] [address] Historical LMR Provider 04/10/17 2 Gab Garrett MD [address] [place] [address] Historical LMR Provider 04/10/17 Gab Javed DO [address] [place] [address] Orthopedics & Sports Medicine, [place] [address] Historical LMR Provider 04/10/17 07/03/21 Aisha Tabor FNP [address] [place] [address] 7 [place] [address] [email or web address] Historical LMR Provider 04/10/17 01/16/24 Ronn Harris MD [address] [place] [address] 7 [place] [phone] [email or web address] Historical LMR Provider 04/10/17 Tess Chan NP [address] [place] [address] Historical LMR Provider 04/10/17 2 Debra Rasheed MD [address] [place] [address] 7 [place] [address] [email or web address] Historical LMR Provider 04/10/17 Adwoa Mehta MD [address] [place] [address] Orthopedics & Sports [facility], [place] [address] [email or web address] Historical LMR Provider 04/10/17 Pranav Harris MD [address] [place], [place] [address] [place] [phone] [email or web address] Historical LMR Provider 04/10/17 07/03/21 Ronn Shea MD [address] [place] [address] Orthopedics & Sports Medicine, [facility] [place] [address] Historical LMR Provider 04/10/17 2 Debra Rasheed MD [address] [place] [address] 7 [place] [address] Insurance Assigned Provider 01/27/18 10/01/22 Byron Beebe DO [address] [place] [address] [email or web address] Primary Oncologist Hematology and Oncology 01/14/22 Malaika Hidalgo MD [address] [place] [address] 7 [place] [address] Insurance Assigned Provider 09/30/23 01/16/24 Malaika Hidalgo MD [address] [place] [address] 7 [place] [address] Insurance Assigned Provider 09/30/23 07/01/24 documented as of this encounter Additional Source Comments The information contained in this document represents components of the legal health record. It is not the complete legal health record.[facility]
--- OUTSIDE RECORDS SUMMARY | 2025-02-27 15:43 | XMS_ITS | Encounter Summary ---
Author Organization [facility] Address [address] [place] [address] [place] [address] Phone Care Team Providers Care Bus Van Driver Name Role Phone Debra Rasheed MD Primary Care Provider [phone] Bea Monroy DO Unavailable Aisha Tabor Unavailable [phone] Ronn Harris MD Unavailable Debra Rasheed MD Unavailable Adwoa Mehta MD Unavailable [phone] Debra Rasheed MD Unavailable Malaika Hidalgo MD Primary Care Provider [phone] Byron Beebe DO Unavailable [phone] Malaika Hidalgo MD Unavailable [phone] Unknown, Unknown Primary Care Provider Malaika Parham MD Unavailable Harry Moyer MD Primary Care Provider + Encounter Details Date Type Department Care Team (Late st Contact Info) Description 2021 Procedure Pass [facility] PER[facility]PT 55 [place] [address] Social History Tobacco Use Types Packs/Day Years [...] high school, GED, job training, learning the [place]er language, technical skills, or developing parenting skills)? [...] st Contact Info) Description 12/18/2024 Procedure Pass [facility], Ct Scan - [facility] 30 [place] [address] 03/05/2025 9:00 AM EDT Office Visit [facility] Orthopedics & Sports Medicine [address] [place] [address] Gab Javed, 4 [facility] Orthopedics & Sports [place], [place] [address] [email or web address] 03/07/2025 10:00 AM EDT Office Visit [facility] Sports Medicine [address] [place] [address] Andre Zarate MD, SHEMAR [address] [address] [email or web address] 03/31/2025 8:00 AM EDT Telemedicine [facility] Epilepsy Service 55 [facility], 8th Floor, [address] [place] [address] Lucia Samuel MD 55 [facility] Department of [id number] [place] [address] [email or web address] 04/11/2025 2:00 PM EDT Office Visit [facility] Heart Failure & Transplantation 32 [facility], 5th Floor, [address] [place] [address] Raza Pan MD 55 [facility] 5B [place] [address] [email or web address] 10/01/2025 10:30 AM EDT Appointment [facility], Ct Scan - [address] [address] Byron Beebe, DO 30 [place] [address] [email or web address]. [facility] 10/08/2025 10:30 AM EDT Office Visit [facility] at [facility] 30 [place] [address] Byron Beebe, DO 30 [place] [address] [email or web address] documented as of this encounter Visit Diagnoses Not on filedocumented in this encounter Additional Health Concerns Assessment Noted Time PHQ-2 Depression Total Score: 0 06/26/19 11:41 AM EST documented as of this encounter Care Teams Bus Van Driver Relationship Specialty Start Date End Date Debra Rasheed MD [address] [address] PCP - General 02/24/17 01/13/22 Malaika Hidalgo MD [address] [place] [address] PCP - General Family Medicine 01/14/22 01/16/24 Unknown, Veena, PCP - General 01/17/24 09/25/24 Harry Moyer MD [address] [place] [address] [email or web address] PCP - General Internal Medicine 09/26/24 Bea Monroy DO [address] [place] [address] [email or web address] Historical LMR Provider 04/10/17 01/16/24 Aisha Tabor FNP [address] [place] [id number] [email or web address] Historical LMR Provider 04/10/17 01/16/24 Ronn Harris MD [address] [place] [phone] [email or web address] Historical LMR Provider 04/10/17 Debra Rasheed MD [address] [place] [address] 7 [place] [address] Historical LMR Provider 04/10/17 Adwoa Mehta MD [address] [place] [address] Orthopedics & Sports Medicine, [facility] [place] [address] Historical LMR Provider 04/10/17 Debra Rasheed MD [address] [place] [address] 7 [place] [address] Insurance Assigned Provider 01/27/18 10/01/22 Byron Beebe DO [address] [place] [address] [email or web address] Primary Oncologist Hematology and Oncology 01/14/22 Malaika Hidalgo MD [address] [place] [address] 7 [place] [address] Insurance Assigned Provider 09/30/23 01/16/24 Malaika Hidalgo MD [address] [place] [address] 7 [place] [address] Insurance Assigned Provider 09/30/23 07/01/24 documented as of this encounter Additional Source Comments The information contained in this document represents components of the legal health record. It is not the complete legal health record.[facility]
--- OUTSIDE RECORDS SUMMARY | 2025-02-27 15:43 | XMS_ITS | Encounter Summary ---
Author Organization [facility] Address [address] [place] [address] [place] [address] Phone Care Team Providers Care Neonatal Specialist Name Role Phone Debra Rasheed MD Primary Care Provider Marielena Llanes STEAM CONDITIONER FILLING Unavailable Real Welch DO Unavailable Bea Monroy DO Unavailable Sarah Long STEAM CONDITIONER FILLING Unavailable Gab Garrett MD Unavailable Gab Javed DO Unavailable Aisha Tabor PLUNGER SCOOP OPERATOR Unavailable Ronn Harris MD Unavailable Tess Chan STEAM CONDITIONER FILLING Unavailable Debra Rasheed MD Unavailable Adwoa Mehta MD Unavailable Pranav Harris MD Unavailable Ronn Shea MD Unavailable Debra Rasheed MD Unavailable Malaika Hidalgo MD Primary Care Provider [phone] Byron Beebe DO Unavailable Malaika Hidalgo MD Unavailable [phone] Unknown, Unknown Primary Care Provider Malaika Parham MD Unavailable [phone] Harry Moyer MD Primary Care Provider + Encounter Details Date Type Department Care Team (Latest Contact Info) Description 04/18/2018 Transcribe Orders [address] [place] [address] Giuliano Villa MD [address] [place] [address], [address] [place] [address] Benign localized prostatic hyperplasia with lower urinary tract symptoms (LUTS) (Primary Dx) Social History Tobacco Use Types [...] st Contact Info) Description 12/18/2024 Procedure Pass [facility], Ct Scan - [address] [address] 03/05/2025 9:00 AM EDT Office Visit [facility] Orthopedics & Sports Medicine [address] [place] [address] Gab Javed DO [address] [place] [address] Orthopedics & Sports [place], [place] [address] 03/07/2025 10:00 AM EDT Office Visit [facility] [address] [place] [address] Andre Zarate MD, SHEMAR [address] [address] 03/31/2025 8:00 AM EDT Telemedicine [facility] Epilepsy Service [address] [facility], 8th Floor, [address] [place] [address] Lucia Samuel MD 55 [facility] Department of He[address]856 [place] [address] [email or web address] 04/11/2025 2:00 PM EDT Office Visit [facility] Heart Failure & Transplantation 32 [facility], 5th Floor, [address] [place] [address] Raza Pan MD 55 [facility] 5B [place] [address] [email or web address] 10/01/2025 10:30 AM EDT Appointment [facility], Ct Scan - [address] [address] Byron Beebe, DO [address] [place] [address] [email or web address] 10/08/2025 10:30 AM EDT Office Visit [facility] at [facility] 30 [place] [address] Byron Beebe, DO 30 [place] [address] [email or web address] documented as of this encounter Results * PSA (screening) (04/18/2018 11:44 AM EDT) PSA 1.53 0 - 4.00 ng/mL [facility] Blood 04/18/2018 11:4 4 AM EDT 04/18/2018 11:46 AM EDT us Giuliano Villa MD LAB BLOOD ORDERABLES Final Res ult [facility] 30 [place] [address] documented in this encounter Visit Diagnoses Diagnosis Benign localized prostatic hyperplasia with lower urinary tract symptoms (LUTS)- Primary documented in this encounter Additional Health Concerns Infection Onset Date Last Indicated Resolved Time CoV-Presumed Comment:COVID-19 Added 11/17/2021 11/17/2021 11/19/2021 10:26 AM EDT CoV-Risk 11/18/2021 11/18/2021 11/19/2021 10:2 6 AM EDT COVID-19 Comment:Per Note Documentation 11/19/2021 11/18/2021 1:23 PM EDT documented as of this encounter Care Teams Neonatal Specialist Relationship Specialty Start Date End Date Debra Rasheed MD 234 [facility] 7 [place] [address] [email or web address] PCP - General 02/24/17 01/13/22 Malaika Hidalgo MD 234 [facility] 7 [place] [address] [email or web address] PCP - General Family Medicine 01/14/22 01/16/24 Unknown, Veena, PCP - General 01/17/24 09/25/24 Harry Moyer MD 243 [facility] 238 [place] [address] [email or web address] PCP - General Internal Medicine 09/26/24 Marielena Llanes [employer] FILLING 1 [place] [address] Historical LMR Provider 04/10/17 2 Real Welch DO [address] [facility], [address] [place] [address] [email or web address] Historical LMR Provider 04/10/17 07/03/21 Bea Monroy DO [address] [place] [address] 7 [place] [address] [email or web address] Historical LMR Provider 04/10/17 01/16/24 Saarh [place] [address] Historical LMR Provider 04/10/17 2 Gab Garrett MD [address] [place] [address] Historical LMR Provider 04/10/17 Gab Javed DO [address] [place] [address] Orthopedics & Sports Medicine, [place] [address] [email or web address] Historical LMR Provider 04/10/17 07/03/21 Aisha Tabor FNP [address] [place] [address] 7 [place] [address] [email or web address] Historical LMR Provider 04/10/17 01/16/24 Ronn Harris MD [address] [place] [address] 7 [place] [phone] [email or web address] Historical LMR Provider 04/10/17 Tess Chan NP [address] [place] [address] Historical LMR Provider 04/10/17 2 Debra Rasheed MD [address] [place] [address] 7 [place] [address] Historical LMR Provider 04/10/17 Adwoa Mehta MD [address] [place] [address] Orthopedics & Sports Medicine, [place] [address] [email or web address] Historical LMR Provider 04/10/17 Pranav Harris MD [address] [place], [place] [address] [place] [phone] [email or web address] Historical LMR Provider 04/10/17 07/03/21 Ronn Shea MD [address] [place] [address] Orthopedics & Sports [facility], [place] [address] Historical LMR Provider 04/10/17 2 Debra Rasheed MD [address] [place] [address] 7 [place] [address] Insurance Assigned Provider 01/27/18 10/01/22 Byron Beebe DO [address] [place] [address] [email or web address] Primary Oncologist Hematology and Oncology 01/14/22 Malaika Hidalgo MD [address] [place] [address] 7 [place] [address] [email or web address] Insurance Assigned Provider 09/30/23 01/16/24 Malaika Hidalgo MD [address] [place] [address] 7 [place] [address] [email or web address] Insurance Assigned Provider 09/30/23 07/01/24 documented as of this encounter Additional Source Comments The information contained in this document represents components of the legal health record. It is not the complete legal health record.[facility]
--- OUTSIDE RECORDS SUMMARY | 2025-02-27 15:43 | XMS_ITS | Encounter Summary ---
Author Organization [facility] Address [address] [place] [address] [place] [address] Phone Care Team Providers Care Spirits Model Name Role Phone Debra Rasheed MD Primary Care Provider Marielena Llanes [address] LIGHT Unavailable Real Welch DO Unavailable Bea Monroy DO Unavailable Sarah Long [address] LIGHT Unavailable Gab Garrett MD Unavailable Gab Javed DO Unavailable Aisha Tabor ACCOUNT SERVICES SPECIALIST Unavailable Ronn Harris MD Unavailable Tess Chan [address] LIGHT Unavailable Debra Rasheed MD Unavailable Adwoa Mehta MD Unavailable Pranav Harris MD Unavailable Ronn Shea MD Unavailable Debra Rasheed MD Unavailable Malaika Hidalgo MD Primary Care Provider [phone] Byron Beebe DO Unavailable Malaika Hidalgo MD Unavailable [phone] Unknown, Unknown Primary Care Provider Malaika Parham MD Unavailable [phone] Harry Moyer MD Primary Care Provider + Encounter Details Date Type Department Care Team (Latest Contact Info) Description 07/27/2020 Transcribe Orders [address] [place] [address] Giuliano Villa MD [facility], [address] [place] [address] Elevated prostate specific antigen (PSA) (Primary Dx) Social History Tobacco Use Types [...] st Contact Info) Description 12/18/2024 Procedure Pass [facility], Ct Scan - [address] [address] 03/05/2025 9:00 AM EDT Office Visit [facility] Orthopedics & Sports Medicine [address] [place] [address] Gab Javed DO [address] [place] [address] Orthopedics & Sports Medicine, [facility] [place] [address] 03/07/2025 10:00 AM EDT Office Visit [facility] Medicine [address] [place] [address] Andre Zarate MD, SHEMAR [address] [address] [email or web address] 03/31/2025 8:00 AM EDT Telemedicine [facility] Epilepsy Service [address] [facility], 8th Floor, [address] [place] [address] Lucia Samuel MD 55 [facility] Department of [address] [place] [address] [email or web address] 04/11/2025 2:00 PM EDT Office Visit [facility] Heart Failure & Transplantation 32 [facility], 5th Floor, [address] [place] [address] Raza Pan MD 55 [facility] 5B [place] [address] [email or web address] 10/01/2025 10:30 AM EDT Appointment [facility], Ct Scan - [address] [address] Byron Beebe, DO [address] [place] [address] [email or web address] 10/08/2025 10:30 AM EDT Office Visit [facility] at [address] [address] Byron Beebe, DO [address] [place] [address] [email or web address] documented as of this encounter Results * PSA (screening) (07/27/2020 12:30 PM EST) PSA 2.41 0 - 4.00 ng/mL [facility] Blood 07/27/2020 12:3 0 PM EST 07/27/2020 12:33 PM EST us Giuliano Villa MD LAB BLOOD ORDERABLES Final Res ult [facility] 30 [place] [address] documented in this encounter Visit Diagnoses Diagnosis Elevated prostate specific antigen (PSA)- Primary documented in this encounter Additional Health Concerns Infection Onset Date Last Indicated Resolved Time CoV-Presumed Comment:COVID-19 Added 11/17/2021 11/17/2021 11/19/2021 10:26 AM EDT CoV-Risk 11/18/2021 11/18/2021 11/19/2021 10:2 6 AM EDT COVID-19 Comment:Per Note Documentation 11/19/2021 11/18/2021 1:23 PM EDT documented as of this encounter Care Teams Spirits Model Relationship Specialty Start Date End Date Debra Rasheed MD 234 [facility] 7 [place] [address] [email or web address] PCP - General 02/24/17 01/13/22 Malaika Hidalgo MD 234 [facility] 7 [place] [address] [email or web address] PCP - General Family Medicine 01/14/22 01/16/24 Unknown, Veena, PCP - General 01/17/24 09/25/24 Harry Moyer MD 243 [facility] 238 [place] [address] [email or web address] PCP - General Internal Medicine 09/26/[address] LIGHT 1 [place] [address] Historical LMR Provider 04/10/17 2 Real Welch DO [address] [place] [address], [address] [place] [address] [email or web address] Historical LMR Provider 04/10/17 07/03/21 Porfirio Beabrionna Loco DO [address] [place] [address] 7 [place] [address] [email or web address] Historical LMR Provider 04/10/17 01/16/24 Sarah Long, [place] [address] Historical LMR Provider 04/10/17 2 Gab Garrett MD [address] [place] [address] Historical LMR Provider 04/10/17 Gab Javed DO [address] [place] [address] Orthopedics & Sports Medicine, [place] [address] [email or web address] Historical LMR Provider 04/10/17 07/03/21 Aisha Tabor FNP [address] [place] [address] 7 [place] [address] [email or web address] Historical LMR Provider 04/10/17 01/16/24 Ronn Harris MD [address] [place] [phone] [email or web address] Historical LMR Provider 04/10/17 Tess Chan NP [address] [place] [address] Historical LMR Provider 04/10/17 2 Debra Rasheed MD [address] [place] [address] 7 [place] [address] Historical LMR Provider 04/10/17 Adwoa Mehta MD [address] [place] [address] Orthopedics & Sports Medicine, [place] [address] [email or web address] Historical LMR Provider 04/10/17 Pranav Harris MD [address] [place], [place] [address] [place] [phone] [email or web address] Historical LMR Provider 04/10/17 07/03/21 Ronn Shea MD [address] [place] [address] Orthopedics Sports [facility], [place] [address] Historical LMR Provider 04/10/17 2 Debra Rasheed MD [address] [place] [address] 7 [place] [address] Insurance Assigned Provider 01/27/18 10/01/22 Byron Beebe DO [address] [place] [address] [email or web address] Primary Oncologist Hematology and Oncology 01/14/22 Malaika Hidalgo MD [address] [place] [address] 7 [place] [address] [email or web address] Insurance Assigned Provider 09/30/23 01/16/24 Malaika Hidalgo MD [address] [place] [address] [address] [place] [address] [email or web address] Insurance Assigned Provider 09/30/23 07/01/24 documented as of this encounter Additional Source Comments The information contained in this document represents components of the legal health record. It is not the complete legal health record.[facility]
--- OUTSIDE RECORDS SUMMARY | 2025-02-27 15:43 | XMS_ITS | Encounter Summary ---
Author Organization [facility] Address [address] [place] [address] [place] [address] Phone Care Team Providers Care Ore Fielder Name Role Phone Debra Rasheed MD Primary Care Provider Bea Monroy DO Unavailable Aisha Tabor Unavailable Ronn Harris MD Unavailable Debra Rasheed MD Unavailable [phone] Adwoa Mehta MD Unavailable [phone] Debra Rasheed MD Unavailable Malaika Hidalgo MD Primary Care Provider [phone] Byron Beebe DO Unavailable Malaika Hidalgo MD Unavailable [phone] Unknown, Unknown Primary Care Provider Malaika Parham MD Unavailable Harry Moyer MD Primary Care Provider + Encounter Details Date Type Department Care Team (Late st Contact Info) Description 09/17/2021 Procedure Pass [facility] 30 [place] [address] Social History Tobacco Use Types Packs/Day Years [...] high school, GED, job training, learning the [place] language, technical skills, or developing parenting skills)? [...] Pass [facility], Ct Scan - [facility] 30 [place] [address] 03/05/2025 9:00 AM EDT Office Visit [facility] Orthopedics & Sports Medicine [address] [place] [address] Gab Javed, DO 4 [facility] Orthopedics & Sports [place] [address] [email or web address] 03/07/2025 10:00 AM EDT Office Visit [facility] Sports Medicine [address] [place] [address] Andre Zarate MD, SHEMAR [address] [address] [email or web address] 03/31/2025 8:00 AM EDT Telemedicine [facility] Epilepsy Service 55 [facility], 8th Floor, [address] [place] [address] Lucia Samuel MD 55 [employer] Department of V[address]JJ203 [place] [address] [email or web address] 04/11/2025 2:00 PM EDT Office Visit [facility] Heart Failure & Transplantation 32 [facility], 5th Floor, [address] [place] [address] Raza Pan MD [address] [address] [email or web address] 10/01/2025 10:30 AM EDT Appointment [facility], Ct Scan - [address] [address] Byron Beebe, DO 30 [place] [address] [email or web address] 10/08/2025 10:30 AM EDT [facility] at [facility] 30 [place] [address] Byron Beebe, DO 30 [place] [address] [email or web address] documented as of this encounter [...] documented as of this encounter Care Teams Ore Fielder Relationship Specialty Start Date End Date Debra Rasheed MD [address] [address] [email or web address] PCP - General 02/24/17 01/13/22 Malaika Hidalgo MD [address] [address] [email or web address] PCP - General Family Medicine 01/14/22 01/16/24 Unknown, Veena, PCP - General 01/17/24 09/25/24 Harry Moyer MD [address] [place] [address] 238 [place] [address] [email or web address] PCP - General Internal Medicine 09/26/24 Bea Monroy DO [address] [place] [address] 7 [place] [address] [email or web address] Historical LMR Provider 04/10/17 01/16/24 Aisha Tabor FNP 234 [facility] 7 [place] [address] [email or web address] Historical LMR Provider 04/10/17 01/16/24 Ronn Harris MD [address] [place] [address] 7 [place] [phone] [email or web address] Historical LMR Provider 04/10/17 Debra Rasheed MD [address] [place] [address] 7 [place] [address] [email or web address] Historical LMR Provider 04/10/17 Adwoa Mehta MD [address] [place] [address] Orthopedics & Sports Medicine, [place] [address] [email or web address] Historical LMR Provider 04/10/17 Debra Rasheed MD [address] [place] [address] 7 [place] [address] [email or web address] Insurance Assigned Provider 01/27/18 10/01/22 Byron Beebe DO [address] [place] [address] [email or web address] Primary Oncologist Hematology and Oncology 01/14/22 Malaika Hidalgo MD [address] [place] [address] 7 [place] [address] [email or web address] Insurance Assigned Provider 09/30/23 01/16/24 Malaika Hidalgo MD [address] [place] [address], [address] [place] [address] [email or web address] Insurance Assigned Provider 09/30/23 07/01/24 documented as of this encounter Additional Source Comments The information contained in this document represents components of the legal health record. It is not the complete legal health record.[facility]
--- OUTSIDE RECORDS SUMMARY | 2025-02-27 15:43 | XMS_ITS | Encounter Summary ---
Author Organization [facility] Address [address] [place] [address] [place] [address] Phone Care Team Providers Care Equine Pharmacology Technician Name Role Phone Ronn Harris MD Unavailable [phone] Debra Rasheed MD Unavailable [phone] Adwoa Mehta MD Unavailable Byron Beebe DO Unavailable [phone] Harry Moyer MD Primary Care Provider + Reason for Referral * MRI/CAT Scan - Closed Specialty Diagnoses / Procedures Referred By Flower campbell Referred To Contact Radiology Diagnoses Seizure Procedures MRI Brain Juan Ramon Soler MD [address] [place] [address], [address] [place] [address] Phone: tel: fax: [email or web address] Referral ID Status Reason Start Date Expiration Date Visits Re quested Visits Authorized [id number] Closed 12/06/2024 12/06/2025 1 1 Encounter Details Date Type Department Care Team (Latest Contact Info) Description 12/06/2024 Transcribe Orders [facility] Department [address] [place] [address] [phone] Juan Ramon Soler MD [address] [place] [address], [address] [place], [place] [phone] [email or web address] Seizure (Primary Dx) Social History Tobacco Use Types [...] as food, clothing, or medical care? No 12/02/2024 In the past 12 months have y ou been in a relationship with a person who hurts, threatens, or tries to control you? No 12/02/2024 Are you denied basic needs s uch as food, clothing, or medical care? No 12/02/2024 In the past 12 months have y ou been in a relationship with a person who hurts, threatens, or tries to control you? No 12/02/2024 Sex and Gender Information Value Date Recorded Sex Assigned at Male 08/15/2020 10:42 AM EST Legal Sex Male 1:14 PM EDT Gender Identity Male 08/15/2020 10:42 AM EST Sexual Orientation Straight 08/15/2020 10 :42 AM EST documented as of this encounter Plan of Treatment Upcoming Encounters Date Type Department Care Team (Late st Contact Info) Description 12/18/2024 Procedure Pass [facility], Ct Scan - [address] [address] 03/05/2025 9:00 AM EDT Office Visit [facility] Orth[facility]ics & Sports Medicine [address] [place] [address] Gab Javed DO [address] [place] [address] Orthopedics & Sports Medicine, [facility] [place] [address] [email or web address] 03/07/2025 10:00 AM EDT Office Visit [facility] Sports [address] [address] Andre Zarate MD, SHEMAR [address] [address] 03/31/2025 8:00 AM EDT Telemedicine [facility] Epilepsy Service 55 [facility], 8th Floor, [address] [place] [address] Lucia Samuel MD [address] [place] [address] Department of [id number] [place] [address] [email or web address] 04/11/2025 2:00 PM EDT Office Visit [facility] Heart Failure & Transplantation 32 [facility], 5th Floor, [address] [place] [address] Raza Pan MD 55 [facility] 5[address] [place] [address] [email or web address] 10/01/2025 10:30 AM EDT Appointment [facility], Ct Scan - [address] [address] Byron Beebe, [address] [address] [email or web address] 10/08/2025 10:30 AM EDT Office Visit [facility] Center at [address] [address] Byron Beebe, DO [address] [place] [address] [email or web address] [email or web address] documented as of this encounter Results * MRI BRAIN (SEIZURE) WITH AND WITHOUT CONTRAST (12/26/2024 4:49 PM EDT) [facility] FREIGHT DELIVERY DRIVER COMMENT 2-3 mm nonenhancing cystic structure in the right mesial temporal lobe. [facility] RECOMMENDATION COMMENT right temporal lobe cystic structure with surruounding gliosis. [facility] Anatomical Region Laterality Modality Head Magnetic Resonan [...] initiated on 12/30/2024 2:42 PM, Message ID [id number]. Narrative 12/30/2024 2:42 PM EDT MRI BRAIN (SEIZURE) WITH AND WITHOUT CONTRAST Referring clinician's provided indication for this examination in [facility]: Outside Radiology Order; seizure TECHNIQUE: Multi-sequence, multi-planar [...] clinician's provided indication for this examination in [facility]:Outside Radiology Order; seizure TECHNIQUE: Multi-sequence, multi-planar MRI [...] was initiated on 12/30/2024 2:42 PM, MessageID [id number]. Juan Ramon Soler MD IMG MR HEAD/NECK Final Resul t documented in this encounter Visit Diagnoses Diagnosis Seizure- Primary Other convulsions Seizure Other convulsions documented in this encounter Additional Health Concerns Assessment Noted Time PHQ-2 Depression Total Score: 0 01/04/20 22 2:34 PM EDT documented as of this encounter Care Teams Equine Pharmacology Technician Relationship Specialty Start Date End Date Harry Moyer MD [address] [place] [address] [email or web address] PCP - General Internal Medicine 09/26/24 Ronn Harris MD [address] [address] [email or web address] Historical LMR Provider 04/10/17 Debra Rasheed MD [address] [address] [email or web address] Historical LMR Provider 04/10/17 Adwoa Mehta MD [address] [place] [address] Orthopedics & Sports Medicine, [facility] [place] [address] [email or web address] Historical LMR Provider 04/10/17 Byron Beebe DO [address] [place] [address] [email or web address] Primary Oncologist Hematology and Oncology 01/14/22 documented as of this encounter Additional Source Comments The information contained in this document represents components of the legal health record. It is not the complete legal health record.[facility]
--- OUTSIDE RECORDS SUMMARY | 2025-02-27 15:43 | XMS_ITS | Encounter Summary ---
Author Organization [facility] Address [address] [place] [address] [place] [address] Phone Care Team Providers Care Clinical Psychologist Name Role Phone Debra Rasheed MD Primary Care Provider [phone] Bea Monroy DO Unavailable [phone] Aisha Tabor Unavailable Ronn Harris MD Unavailable Debra Rasheed MD Unavailable [phone] Adwoa Mehta MD Unavailable [phone] Debra Rasheed MD Unavailable Malaika Hidalgo MD Primary Care Provider [phone] Byron Beebe DO Unavailable [phone] Malaika Hidalgo MD Unavailable [phone] Unknown, Unknown Primary Care Provider Malaika Parham MD Unavailable Harry Moyer MD Primary Care Provider + Encounter Details Date Type Department Care Team (Late st Contact Info) Description 07/29/2021 Procedure Pass [facility], Pet/Ct - [address] [address] Social History Tobacco Use Types Packs/Day Years [...] high school, GED, job training, learning the [place] language, technical skills, or developing parenting skills)? [...] st Contact Info) Description 12/18/2024 Procedure Pass [facility], Ct Scan - [facility] [address] [place] [address] 03/05/2025 9:00 AM EDT Office Visit [facility] Orthopedics & Sports Medicine [address] [place] [address] Gab Javed, 4 [facility] Orthopedics & Sports Medicine, [place] [address] [email or web address] 03/07/2025 10:00 AM EDT Office Visit [facility] Sports Medicine [address] [place] [address] Andre Zarate MD, SHEMAR [address] [address] [email or web address] 03/31/2025 8:00 AM EDT Telemedicine [facility] Epilepsy Service 55 [facility], 8th Floor, [address] [place] [address] Lucia Samuel MD 55 [facility] Department of [id number] [place] [address] [email or web address] 04/11/2025 2:00 PM EDT Office Visit [facility] Heart Failure & Transplantation 32 [facility], 5th Floor, [address] [place] [address] Raza Pan MD [address] [address] [email or web address] 10/01/2025 10:30 AM EDT Appointment [facility], Ct Scan - [address] [address] Byron Beebe, DO 30 [place] [address] [email or web address] 10/08/2025 10:30 AM EDT Office Visit [facility] Center at [facility] [address] [place] [address] Byron Beebe, DO 30 [place] [address] [email or web address] documented as of this encounter [...] documented as of this encounter Care Teams Clinical Psychologist Relationship Specialty Start Date End Date Debra Rasheed MD 234 [facility] 7 [place] [address] [email or web address] PCP - General 02/24/17 01/13/22 Malaika Hidalgo MD [address] [address] [email or web address] PCP - General Family Medicine 01/14/22 01/16/24 Unknown, Veena, PCP - General 01/17/24 09/25/24 Harry Moyer MD [address] [place] [address] [email or web address] PCP - General Internal Medicine 09/26/24 Bea Monroy DO [address] [place] [address] 7 [place] [address] [email or web address] Historical LMR Provider 04/10/17 01/16/24 Aisha Tabor FNP [address] [place] [address] 7 [place] [address] [email or web address] Historical LMR Provider 04/10/17 01/16/24 Ronn Harris MD [address] [place] [address] [address] [place] [address] [email or web address] Historical LMR Provider 04/10/17 Debra Rasheed MD [address] [place] [address] 7 [place] [address] [email or web address] Historical LMR Provider 04/10/17 Adwoa Mehta MD [address] [place] [address] Orthopedics & Sports Medicine, [place] [address] [email or web address] Historical LMR Provider 04/10/17 Debra Rasheed MD [address] [place] [address] 7 [place] [address] [email or web address] Insurance Assigned Provider 01/27/18 10/01/22 Byron Beebe DO [address] [place] [address] [email or web address] .[email or web address] Primary Oncologist Hematology and Oncology 01/14/22 Malaika Hidalgo MD [address] [place] [address] 7 [place] [address] [email or web address] Insurance Assigned Provider 09/30/23 01/16/24 Malaika Hidalgo MD [address] [place] [address], [address] [place] [address] [email or web address] Insurance Assigned Provider 09/30/23 07/01/24 documented as of this encounter Additional Source Comments The information contained in this document represents components of the legal health record. It is not the complete legal health record.[facility]
--- OUTSIDE RECORDS SUMMARY | 2025-02-27 15:43 | XMS_ITS | Encounter Summary ---
Author Organization [facility] Address [address] [place] [address] [place] [address] Phone Care Team Providers Care Lead Painter Name Role Phone Debra Rasheed MD Primary Care Provider Bea Monroy DO Unavailable [phone] Aisha Tabor Unavailable Ronn Harris MD Unavailable Debra Rasheed MD Unavailable [phone] Adwoa Mehta MD Unavailable [phone] Debra Rasheed MD Unavailable Malaika Hidalgo MD Primary Care Provider [phone] Byron Beebe DO Unavailable Malaika Hidalgo MD Unavailable [phone] Unknown, Unknown Primary Care Provider Malaika Parham MD Unavailable Harry Moyer MD Primary Care Provider + Encounter Details Date Type Department Care Team (Late st Contact Info) Description 11/29/2021 Procedure Pass [facility] Admitting Dept [facility] Department [address] [place] [address] [phone] Social History Tobacco Use Types Packs/Day Years [...] high school, GED, job training, learning the O[place]i language, technical skills, or developing parenting skills)? [...] st Contact Info) Description 12/18/2024 Procedure Pass [facility], Ct Scan - [facility] 30 [place] [address] 03/05/2025 9:00 AM EDT Office Visit [facility] Orthopedics & Sports Medicine 4 [facility] [place] [address] Gab Javed DO 4 [facility] Orthopedics & Sports [place] [address] [email or web address] 03/07/2025 10:00 AM EDT Office Visit [facility] Sports [facility] [address] [place] [address] Andre Zarate MD, SHEMAR [address] [address] 03/31/2025 8:00 AM EDT Telemedicine [facility] Epilepsy Service 55 [facility], 8th Floor, [address] [place] [address] Lucia Samuel MD 55 [facility] Department of TxjxchtfwWIUA538 [place] [address] [email or web address] 04/11/2025 2:00 PM EDT Office Visit [facility] Heart Failure & Transplantation 32 [facility], 5th Floor, [address] [place] [address] Raza Pan MD [address] [address] [email or web address] .[email or web address] 10/01/2025 10:30 AM EDT Appointment [facility], Ct Scan - [address] [address] Byron Beebe, DO 30 [place] [address] [email or web address] 10/08/2025 10:30 AM EDT Office Visit [facility] Center at [facility] 30 [place] [address] Byron Beebe, DO 30 [place] [address] [email or web address] documented as of this encounter Visit Diagnoses Not on filedocumented in this encounter Additional Health Concerns Infection Onset Date Last Indicated Resolved Time COVID-19 Comment:Per Note Documentation 11/19/2021 11/18/2021 1:23 PM EDT Assessment Noted Time PHQ-2 Depression Total Score: 0 06/26/19 11:41 AM EST documented as of this encounter Care Teams Lead Painter Relationship Specialty Start Date End Date Debra Rasheed MD [address] [place] [address] 7 [place] [address] [email or web address] PCP - General 02/24/17 01/13/22 Malaika Hidalgo MD [address] [address] [email or web address] PCP - General Family Medicine 01/14/22 01/16/24 Unknown, Veena, PCP - General 01/17/24 09/25/24 Harry Moyer MD [address] [place] [address] 238 [place] [address] [email or web address] PCP - General Internal Medicine 09/26/24 Bea Monroy DO [address] [place] [address] 7 [place] [address] [email or web address] Historical LMR Provider 04/10/17 01/16/24 Aisha Tabor FNP [address] [place] [address] 7 [place] [address] Historical LMR Provider 04/10/17 01/16/24 Ronn Harris MD [address] [place] [address] [address] [place] [address] [email or web address] Historical LMR Provider 04/10/17 Debra Rasheed MD [address] [place] [address] 7 [place] [address] [email or web address] Historical LMR Provider 04/10/17 Adwoa Mehta MD [address] [place] [address] Orthopedics & Sports Medicine, [place] [address] [email or web address] Historical LMR Provider 04/10/17 Debra Rasheed MD [address] [place] [address] 7 [place] [address] Insurance Assigned Provider 01/27/18 10/01/22 Byron Beebe DO [address] [place] [address] [email or web address] [email or web address] Primary Oncologist Hematology and Oncology 01/14/22 Malaika Hidalgo MD [address] [place] [address] [address] [place] [address] Insurance Assigned Provider 09/30/23 01/16/24 Malaika Hidalgo MD [address] [place] [address] 7 [place] [address] Insurance Assigned Provider 09/30/23 07/01/24 documented as of this encounter Additional Source Comments The information contained in this document represents components of the legal health record. It is not the complete legal health record.[facility]
--- OUTSIDE RECORDS SUMMARY | 2025-02-27 15:43 | XMS_ITS | Encounter Summary ---
Author Organization [facility] Address [address] [place] [address] [place] [address] Phone Care Team Providers Care [employer] Science Teacher Name Role Phone Debra Rasheed MD Primary Care Provider Marielena Llanes CASINO SHIFT MANAGER Unavailable Real Welch DO Unavailable Bea Monroy DO Unavailable Sarah Long CASINO SHIFT MANAGER Unavailable Gab Garrett MD Unavailable Gab Javed DO Unavailable Aisha Tabor MILLING SUPERVISOR Unavailable Ronn Harris MD Unavailable Tess Chan CASINO SHIFT MANAGER Unavailable Debra Rasheed MD Unavailable Adwoa Mehta MD Unavailable Pranav Harris MD Unavailable Ronn Shea MD Unavailable Debra Rasheed MD Unavailable Malaika Hidalgo MD Primary Care Provider [phone] Byron Beebe DO Unavailable Malaika Hidalgo MD Unavailable [phone] Unknown, Unknown Primary Care Provider Malaika Parham MD Unavailable [phone] Harry Moyer MD Primary Care Provider + Encounter Details Date Type Department Care Team (Late Contact Info) Description 02/19/2018 Procedure Pass [facility] - MRI 32 [facility], 6th [place] [address] Social History Tobacco Use Types Packs/Day Years [...] st Contact Info) Description 12/18/2024 Procedure Pass [facility], Ct Scan - [address] [address] 03/05/2025 9:00 AM EDT Office Visit [facility] Orthopedics & Sports Medicine [address] [place] [address] Gab Javed DO [address] [place] [address] Orthopedics & Sports [place], [place] [address] 03/07/2025 10:00 AM EDT Office Visit [facility] Sports Medicine [address] [place] [address] Andre Zarate MD, SHEMAR [address] [address] 03/31/2025 8:00 AM EDT Telemedicine [facility] Epilepsy Service 55 [facility], 8th Floor, [address] [place] [address] Lucia Samuel MD 55 [facility] Department of [id number] [place] [address] [email or web address] 04/11/2025 2:00 PM EDT Office Visit [facility] Heart Failure & Transplantation 32 [facility], 5th Floor, [address] [place] [address] Raza Pan MD 55 [facility] 5B [place] [address] [email or web address] 10/01/2025 10:30 AM EDT Appointment [facility], Ct Scan - [address] [address] Byron Beebe, [address] [address] [email or web address] 10/08/2025 10:30 AM EDT Office Visit [facility] at [address] [address] Byron Beebe, [address] [address] [email or web address] documented as of this encounter Visit Diagnoses Not on filedocumented in this encounter Additional Health Concerns Infection Onset Date Last Indicated Resolved Time CoV-Presumed Comment:COVID-19 Added 11/17/2021 11/17/2021 11/19/2021 10:26 AM EDT CoV-Risk 11/18/2021 11/18/2021 11/19/2021 10:2 6 AM EDT COVID-19 Comment:Per Note Documentation 11/19/2021 11/18/2021 1:23 PM EDT documented as of this encounter Care Teams [employer] Science Teacher Relationship Specialty Start Date End Date Debra Rasheed MD 234 [facility] 7 [place] [address] [email or web address] PCP - General 02/24/17 01/13/22 Malaika Hidalgo MD [address] [place] [address] 7 [place] [address] [email or web address] PCP - General Family Medicine 01/14/22 01/16/24 Unknown, Veena, MD PCP - General 01/17/24 09/25/24 Harry Moyer MD [address] [place] [address] [email or web address] PCP - General Internal Medicine 09/26/24 Marielena Llanes NP [address] [place] [address] Historical LMR Provider 04/10/17 2 Real Welch DO [address] [place] [address] 7 [place] [address] [email or web address] Historical LMR Provider 04/10/17 07/03/21 Bea Monroy DO [address] [place] [address] 7 [place] [address] Historical LMR Provider 04/10/17 01/16/24 Sarah Long NP [address] [place] [address] Historical LMR Provider 04/10/17 2 Gab Garrett MD [address] [place] [address] Historical LMR Provider 04/10/17 Gab Javed DO [address] [place] [address] Orthopedics & Sports [facility], [place] [address] Historical LMR Provider 04/10/17 07/03/21 Aisha Tabor FNP [address] [place] [address] 7 [place] [address] [email or web address] Historical LMR Provider 04/10/17 01/16/24 Ronn Harris MD [address] [place] [address] 7 [place] [address] [email or web address] Historical LMR Provider 04/10/17 Tess Chan NP [address] [place] [address] Historical LMR Provider 04/10/17 2 Debra Rasheed MD [address] [place] [address] [email or web address] Historical LMR Provider 04/10/17 Adwoa Mehta MD [address] [place] [address] Orthopedics & Sports [facility], [place] [address] [email or web address] Historical LMR Provider 04/10/17 Pranav Harris MD [address] [place], [place] [address] [place] [address] [email or web address] Historical LMR Provider 04/10/17 07/03/21 Ronn Shea MD [address] [place] [address] Orthopedics & Sports Medicine, [place] [address] [email or web address] Historical LMR Provider 04/10/17 2 Debra Rasheed MD [address] [place] [address], [facility] 7 [place] [address] [email or web address] Insurance Assigned Provider 01/27/18 10/01/22 Byron Beebe DO [address] [place] [address] [email or web address] Primary Oncologist Hematology and Oncology 01/14/22 Malaika Hidalgo MD [address] [place] [address] 7 [place] [address] [email or web address] Insurance Assigned Provider 09/30/23 01/16/24 Malaika Hidalgo MD [address] [place] [address] 7 [place] [address] Insurance Assigned Provider 09/30/23 07/01/24 documented as of this encounter Additional Source Comments The information contained in this document represents components of the legal health record. It is not the complete legal health record.[facility]
--- OUTSIDE RECORDS SUMMARY | 2025-02-27 15:43 | XMS_ITS | Encounter Summary ---
Author Organization [facility] Address [facility] [employer] [facility] [address] [place] [address] Phone Care Team Providers Care Hot Metal Car Operator Name Role Phone Bea Monroy Claudy PEDRO Unavailable [phone] Aisha TaborP Unavailable Ronn Harris MD Unavailable Debra Rasheed MD Unavailable Adwoa Mehta MD Unavailable [phone] Debra Rasheed MD Unavailable Malaika Hidalgo MD Primary Care Provider [phone] Byron Beebe DO Unavailable Malaika Hidalgo MD Unavailable [phone] Unknown, Unknown Primary Care Provider Malaika Parham MD Unavailable [phone] Harry Moyer MD Primary Care Provider + Encounter Details Date Type Department Care Team (Late st Contact Info) Description 07/04/2022 Procedure Pass [facility], Ct Scan - [address] [address] Social History Tobacco Use Types Packs/Day Years [...] high school, GED, job training, learning the Uruguayan language, technical skills, or developing parenting skills)? [...] basis, and looking for work? No 06/26/2021 Intimate Partner Violence Answer Date R ecorded [...] AM EST documented as of this encounter Functional Status * Calculated C-SSRS Risk Score (Lifetime/Recent) Answer Date of Assessment Author No Risk Indicated 07/04/2022 5:02 AM Maryann Smith RN * [place] Suicide Severity Rating Scale (Screener/Recent Self-Report) Question Answer Date of Assessment Author 1. Wish to be (Past 1 Month) No 07/04/2022 5:02 AM Dolores Smith RN 2. Non-Specific Active Suici katia Thoughts (Past 1 Month) No 07/04/2022 5:02 AM Aashish Smith RN 6. Suicidal Behavior (Lifetime) No 5:02 AM Maryann Smith RN documented as of this encounter Plan of Treatment Upcoming Encounters Date Type Department Care Team (Late st Contact Info) Description 12/18/2024 Procedure Pass [facility], Ct Scan - [address] [address] 03/05/2025 9:00 AM EDT Office Visit [facility] Orthopedics & Sports Medicine [address] [place] [address] Gab Javed DO [address] [place] [address] Orthopedics & Sports [place], [place] [address] [email or web address] 03/07/2025 10:00 AM EDT Office Visit [facility] Sports Medicine [address] [place] [address] Andre Zarate MD, SHEMAR [address] [address] 03/31/2025 8:00 AM EDT Telemedicine [facility] Epilepsy Service [address] [place] [address], 8th Floor, [address] [place] [address] Lucia Samuel MD [address] [place] [address] Department of OglputkpfOBBT285 [place] [address] [email or web address] 04/11/2025 2:00 PM EDT Office Visit [facility] Heart Failure & Transplantation 32 [facility], 5th Floor, [address] [place] [address] Raza Pan MD 55 [facility] 5B [place] [address] [email or web address] 10/01/2025 10:30 AM EDT Appointment [facility], Ct Scan - [address] [address] Byron Beebe, [address] [address] [email or web address] 10/08/2025 10:30 AM EDT Office Visit [facility] Cancer Center at [address] [address] Byron Beebe, 30 [place] [address] [email or web address] documented as of this encounter Visit Diagnoses Not on filedocumented in this encounter Additional Health Concerns Assessment Noted Time PHQ-2 Depression Total Score: 0 01/04/20 22 2:34 PM EDT documented as of this encounter Care Teams Hot Metal Car Operator Relationship Specialty Start Date End Date Malaika Hidalgo MD [address] [place] [address], [address] [place] [address] [email or web address] PCP - General Family Medicine 01/14/22 01/16/24 Unknown, Unknown, PCP - General 01/17/24 09/25/24 Harry Moyer MD [address] [place] [address] 238 [place] [address] [email or web address] PCP - General Internal Medicine 09/26/24 Bea Monroy DO [address] [place] [address] 7 [place] [address] Historical LMR Provider 04/10/17 01/16/24 Aisha Tabor FNP [address] [place] [address] [place] [address] Historical LMR Provider 04/10/17 01/16/24 Ronn Harris MD [address] [place] [address] [place] [phone] [email or web address] Historical LMR Provider 04/10/17 Debra Rasheed MD [address] [place] [address] [place] [address] Historical LMR Provider 04/10/17 Adwoa Mehta MD [address] [place] [address] Orthopedics & Sports Medicine, [facility] [address] Historical LMR Provider 04/10/17 Debra Rasheed MD [address] [place] [address] [place] [address] Insurance Assigned Provider 01/27/18 10/01/22 Byron Beebe DO [address] [place] [address] [email or web address] [email or web address] Primary Oncologist Hematology and Oncology 01/14/22 Malaika Hidalgo MD [address] [place] [address], [facility] 7 [place] [address] [email or web address] Insurance Assigned Provider 09/30/23 01/16/24 Malaika Hidalgo MD [address] [place] [address], [facility] 7 [place] [address] [email or web address] Insurance Assigned Provider 09/30/23 07/01/24 documented as of this encounter Additional Source Comments The information contained in this document represents components of the legal health record. It is not the complete legal health record.[facility]
--- OUTSIDE RECORDS SUMMARY | 2025-02-27 15:43 | XMS_ITS | Encounter Summary ---
Author Organization [facility] Address [address] [place] [address] [place] [address] Phone Care Team Providers Care Personal Care Assistant Name Role Phone Debra Rasheed MD Primary Care Provider Bea Monroy DO Unavailable Aisha TaborP Unavailable Ronn Harris MD Unavailable Debra Rasheed MD Unavailable Adwoa Mehta MD Unavailable [phone] Debra Rasheed MD Unavailable Malaika Hidalgo MD Primary Care Provider [phone] Byron Beebe DO Unavailable Malaika Hidalgo MD Unavailable Unknown, Unknown Primary Care Provider Malaika Parham MD Unavailable Harry Moyer MD Primary Care Provider + Encounter Details Date Type Department Care Team (Late st Contact Info) Description 09/24/2021 Transcribe Orders [facility] PFT Lab 30 [place], [place] [phone] Marielena Fields, NET TRAINER [address] [place], [place] [phone] Social History Tobacco Use Types Packs/Day Years Used Date Smoking Tobacco: Former Cigarettes 1 5 1 [id number] Smokeless Tobacco: Never Alcohol Use Standard Drinks/Week [...] high school, GED, job training, learning the [place] language, technical skills, or developing parenting [...] Procedure Pass [facility], Ct Scan [address] [address] 03/05/2025 9:00 AM EDT Office Visit [facility] Orthopedics & Sports Medicine [address] [place] [address] Gab Javed DO 4 [facility] Orthopedics & Sports Medicine, [place] [address] [email or web address] 03/07/2025 10:00 AM EDT Office Visit [facility] Sports Medicine [address] [place] [address] Andre Zarate MD, SHEMAR [address] [address] [email or web address] 03/31/2025 8:00 AM EDT Telemedicine [facility] Epilepsy Service 55 [facility], 8th Floor, [address] [place] [address] Lucia Samuel MD 55 [facility] Department of ZgztlrumzBHJQ956 [place] [address] [email or web address] 04/11/2025 2:00 PM EDT Office Visit [facility] Heart Failure & Transplantation 32 [facility], 5th Floor, [address] [place] [address] Raza Pan MD [address] [address] [email or web address] .[email or web address] 10/01/2025 10:30 AM EDT Appointment [facility], Ct Scan [address] [address] Byron Beebe DO 30 [place] [address] [email or web address] [facility] 10/08/2025 10:30 AM EDT Office Visit [facility] [address] [place] [address] Byron Beebe DO 30 [place] [address] [email or web address] documented as of this encounter Visit [...] documented as of this encounter Care Teams Personal Care Assistant Relationship Specialty Start Date End Date Debra Rasheed MD [address] [address] [email or web address] PCP - General 02/24/17 01/13/22 Malaika Hidalgo MD [address] [address] [email or web address] PCP - General Family Medicine 01/14/22 01/16/24 Unknown, Unknown, PCP - General 01/17/24 09/25/24 Harry Moyer MD [address] [place] [address] [email or web address] PCP - General Internal Medicine 09/26/24 Bea Monroy DO [address] [place] [address] Historical LMR Provider 04/10/17 01/16/24 Aisha Tabor FNP [address] [place] [address] 7 [place] [address] Historical LMR Provider 04/10/17 01/16/24 Ronn Harris MD [address] [place] [address] 7 [place] [phone] [email or web address] Historical LMR Provider 04/10/17 Debra Rasheed MD [address] [place] [address] 7 [place] [address] [email or web address] Historical LMR Provider 04/10/17 Adwoa Mehta MD [address] [place] [address] Orthopedics & Sports Medicine, [place], [place] [id number] [email or web address] Historical LMR Provider 04/10/17 Debra Rasheed MD [address] [place] [address] 7 [place] [address] [email or web address] Insurance Assigned Provider 01/27/18 10/01/22 Byron Beebe DO [address] [place] [address] [email or web address] .[email or web address] Primary Oncologist Hematology and Oncology 01/14/22 Malaika Hidalgo MD [address] [place] [address] 7 [place] [phone] [email or web address] Insurance Assigned Provider 09/30/23 01/16/24 Malaika Hidalgo MD [address] [place] [address] [address] [place] [address] [email or web address] Insurance Assigned Provider 09/30/23 07/01/24 documented as of this encounter Additional Source Comments The information contained in this document represents components of the legal health record. It is not the complete legal health record.[facility]
--- OUTSIDE RECORDS SUMMARY | 2025-02-27 15:43 | XMS_ITS | Encounter Summary ---
Author Organization [facility] Address [facility] [address] [place] [address] Phone Care Team Providers Care Ct Scan Special Procedures Technologist Name Role Phone Bea Monroy Claudy DO Unavailable Aisha Tabor AGENCY APPOINTMENTS SUPERVISOR Unavailable [phone] Ronn Harris MD Unavailable Debra Rasheed MD Unavailable Adwoa Mehta MD Unavailable [phone] Debra Rasheed MD Unavailable Malaika Hidalgo MD Primary Care Provider [phone] Byron Beebe DO Unavailable Malaika Hidalgo MD Unavailable [phone] Unknown, Unknown Primary Care Provider Malaika Parham MD Unavailable [phone] Harry Moyer MD Primary Care Provider + Encounter Details Date Type Department Care Team (Late st Contact Info) Description 05/13/2022 Procedure Pass [facility] Echo [facility] [address] [place] [address] Social History Tobacco Use Types Packs/Day Years [...] high school, GED, job training, learning the Danish language, technical skills, or developing parenting skills)? [...] st Contact Info) Description 12/18/2024 Procedure Pass [facility], Ct Scan - [facility] 30 [place] [address] 03/05/2025 9:00 AM EDT Office Visit [facility] Orthopedics & Sports Medicine [address] [place] [address] Gab Javed DO 4 [facility] Orthopedics & Sports [place] [address] [email or web address] 03/07/2025 10:00 AM EDT Office Visit [facility] Medicine [address] [place] [address] Andre Zarate MD, SHEMAR [address] [address] [email or web address] 03/31/2025 8:00 AM EDT Telemedicine [facility] Epilepsy Service 55 [facility], 8th Floor, [address] [place] [address] Lucia Samuel MD 55 [facility] Department of RccasktelRGHP622 [place] [address] [email or web address] 04/11/2025 2:00 PM EDT Office Visit [facility] Heart Failure & Transplantation 32 [facility], 5th Floor, [address] [place] [address] Raza Pan MD [address] [address] [email or web address] 10/01/2025 10:30 AM EDT Appointment [facility], Ct Scan - [address] [address] Byron Beebe, DO 30 [place] [address] [email or web address] [facility] 10/08/2025 10:30 AM EDT Office Visit [facility] Cancer Center at [address] [address] Byron Beebe, DO 30 [place] [address] [email or web address] documented as of this encounter Visit Diagnoses Not on filedocumented in this encounter Additional Health Concerns Assessment Noted Time PHQ-2 Depression Total Score: 0 01/04/20 22 2:34 PM EDT documented as of this encounter Care Teams Ct Scan Special Procedures Technologist Relationship Specialty Start Date End Date Malaika Hidalgo MD 234 [facility] 7 [place] [address] [email or web address] PCP - General Family Medicine 01/14/22 01/16/24 Unknown, Veena, PCP - General 01/17/24 09/25/24 Harry Moyer MD [address] [place] [address] [email or web address] PCP - General Internal Medicine 09/26/24 Bae Monroy DO 234 [facility] 7 [place] [address] [email or web address] Historical LMR Provider 04/10/17 01/16/24 Aisha Tabor FNP 234 [facility] 7 [place] [address] [email or web address] Historical LMR Provider 04/10/17 01/16/24 Ronn Harris MD [address] [place] [address] 7 [place] [address] [email or web address] Historical LMR Provider 04/10/17 Debra Rasheed MD [address] [place] [address] 7 [place] [address] Historical LMR Provider 04/10/17 Adwoa Mehta MD [address] [place] [address] Orthopedics & Sports Medicine, [facility] [place] [address] Historical LMR Provider 04/10/17 Debra Rasheed MD [address] [place] [address] 7 [place] [address] Insurance Assigned Provider 01/27/18 10/01/22 Byron Beebe DO [address] [place] [address] [email or web address] .[facility] Primary Oncologist Hematology and Oncology 01/14/22 Malaika Hidalgo MD [address] [place] [address] 7 [place] [address] Insurance Assigned Provider 09/30/23 01/16/24 Malaika Hidalgo MD [address] [place] [address] 7 [place] [address] Insurance Assigned Provider 09/30/23 07/01/24 documented as of this encounter Additional Source Comments The information contained in this document represents components of the legal health record. It is not the complete legal health record.[facility]
--- OUTSIDE RECORDS SUMMARY | 2025-02-27 15:43 | XMS_ITS | Encounter Summary ---
Author Organization [facility] Address [address] [facility] [address] [place] [address] Phone Care Team Providers Care Solutions Architect Name Role Phone Ronn Harris MD Unavailable Debra Rasheed MD Unavailable [phone] Adwoa Mehta MD Unavailable [phone] Byron Beebe DO Unavailable Unknown, Unknown Primary Care Provider Malaika Parham MD Unavailable Harry Moyer MD Primary Care Provider + Encounter Details Date Type Department Care Team (Late st Contact Info) Description 06/13/2024 Procedure Pass [facility], Ct Scan - [address] [address] Social History Tobacco Use Types Packs/Day Years [...] st Contact Info) Description 12/18/2024 Procedure Pass [facility], Ct Scan [address] [address] 03/05/2025 9:00 AM EDT Office Visit [facility] Orthopedics & Sports Medicine [address] [place] [address] Gab Javed DO [address] [place] [address] Orthopedics & Sports Medicine, [facility] [place] [address] [email or web address] 03/07/2025 10:00 AM EDT Office Visit [facility] Sports [address] [address] Andre Zarate MD, SHEMAR [address] [address] [email or web address] 03/31/2025 8:00 AM EDT Telemedicine [facility] Epilepsy Service 55 [facility], 8th Floor, [address] [place] [address] Lucia Samuel MD 55 [facility] Department of ZftljppbtJLWL163 [place] [address] [email or web address] 04/11/2025 2:00 PM EDT Office Visit [facility] Heart Failure & Transplantation 32 [facility], 5th Floor, [address] [place] [address] Raza Pan MD 55 [facility] 5B [place] [address] [email or web address] .[email or web address] 10/01/2025 10:30 AM EDT Appointment [facility], Ct Scan [address] [address] Byron Beebe DO 30 [place] [address] [email or web address] 10/08/2025 10:30 AM EDT Office Visit [facility] at [facility] 30 [place] [address] Byron Beebe DO 30 [place] [address] [email or web address] documented as of this encounter Visit Diagnoses Not on filedocumented in this encounter Additional Health Concerns Assessment Noted Time PHQ-2 Depression Total Score: 0 01/04/20 22 2:34 PM EDT documented as of this encounter Care Teams Solutions Architect Relationship Specialty Start Date End Date Unknown, Unknown, MD PCP - General 01/17/24 09/25/24 Harry Moyer MD [address] [place] [address] [email or web address] PCP - General Internal Medicine 09/26/24 Ronn Harris MD [address] [place] [phone] [email or web address] Historical LMR Provider 04/10/17 Debra Rasheed MD [address] [place] [address] [email or web address] Historical LMR Provider 04/10/17 Adwoa Mehta MD 4 [facility] Orthopedics & Sports Medicine, [place] [address] [email or web address] Historical LMR Provider 04/10/17 Byron Beebe DO 30 [place] [address] [email or web address] [email or web address] Primary Oncologist Hematology and Oncology 01/14/22 Malaika Hidalgo MD [address] [place] [address], [address] [place] [address] [email or web address] Insurance Assigned Provider 09/30/23 07/01/24 documented as of this encounter Additional Source Comments The information contained in this document represents components of the legal health record. It is not the complete legal health record.[facility]
--- OUTSIDE RECORDS SUMMARY | 2025-02-27 15:43 | XMS_ITS | Encounter Summary ---
Author Organization [facility] Address [address] [place] [address] [place] [address] Phone Care Team Providers Care Director For [employer] Name Role Phone Debra Rasheed MD Primary Care Provider Marielena Llanes COIL REWIND MACHINE OPERATOR Unavailable Real Welch DO Unavailable Bea Monroy DO Unavailable Sarah Long COIL REWIND MACHINE OPERATOR Unavailable Gab Garrett MD Unavailable Gab Javed DO Unavailable Aisha Tabor RETORT FEEDER GROUND BONE Unavailable Ronn Harris MD Unavailable Tess Chan COIL REWIND MACHINE OPERATOR Unavailable Debra Rasheed MD Unavailable Adwoa Mehta MD Unavailable Pranav Harris MD Unavailable Ronn Shea MD Unavailable Debra Rasheed MD Unavailable Malaika Hidalgo MD Primary Care Provider [phone] Byron Beebe DO Unavailable Malaika Hidalgo MD Unavailable [phone] Unknown, Unknown Primary Care Provider Malaika Parham MD Unavailable [phone] Harry Moyer MD Primary Care Provider + Encounter Details Date Type Department Care Team (Late st Contact Info) Description 11/26/2018 Procedure Pass [facility] - MRI [address] [facility], 6th [place] [address] Social History Tobacco Use Types Packs/Day Years [...] st Contact Info) Description 12/18/2024 Procedure Pass [facility], Ct Scan - [address] [address] 03/05/2025 9:00 AM EDT Office Visit [facility] Orthopedics & Sports Medicine [address] [place] [address] Gab Javed DO [address] [place] [address] Orthopedics & Sports Medicine, [place] [address] 03/07/2025 10:00 AM EDT Office Visit [facility] [address] [place] [address] Andre Zarate MD, SHEMAR [address] [address] 03/31/2025 8:00 AM EDT Telemedicine [facility] Epilepsy Service 55 [facility], 8th Floor, [address] [place] [address] Lucia Samuel MD 55 [facility] Department of [email or web address] [place] [address] [email or web address] 04/11/2025 2:00 PM EDT Office Visit [facility] [place] Heart Failure & Transplantation [address] [facility], 5th Floor, [address] [place] [address] Raza Pan MD 55 [facility] 5[address] [place] [address] [email or web address] 10/01/2025 10:30 AM EDT Appointment [facility], Ct Scan - [address] [address] Byron Beebe, [address] [address] [email or web address] 10/08/2025 10:30 AM EDT Office [facility] at [address] [address] Byron Beebe, [address] [address] [email or web address] documented as of this encounter Visit Diagnoses Not on filedocumented in this encounter Additional Health Concerns Infection Onset Date Last Indicated Resolved Time CoV-Presumed Comment:COVID-19 Added 11/17/2021 11/17/2021 11/19/2021 10:26 AM EDT CoV-Risk 11/18/2021 11/18/2021 11/19/2021 10:2 6 AM EDT COVID-19 Comment:Per Note Documentation 11/19/2021 11/18/2021 1:23 PM EDT documented as of this encounter Care Teams Director For [employer] Relationship Specialty Start Date End Date Debra Rasheed MD 234 [facility] 7 [place] [address] PCP - General 02/24/17 01/13/22 Malaika Hidalgo MD 234 [facility] 7 [place] [address] [email or web address] PCP - General Family Medicine 01/14/22 01/16/24 Unknown, Veena, PCP - General 01/17/24 09/25/24 Harry Moyer MD [address] [place] [address] [email or web address] PCP - General Internal Medicine 09/26/24 Marielena Llanes NP 1 [place] [address] Historical LMR Provider 04/10/17 2 Real Welch DO [address] [place] [address] 7 [place] [address] [email or web address] Historical LMR Provider 04/10/17 07/03/21 Bea Monroy DO [address] [place] [address] 7 [place] [address] [email or web address] Historical LMR Provider 04/10/17 01/16/24 Sarah Long NP 29 [place] [address] Historical LMR Provider 04/10/17 2 Gab Garrett MD [address] [place] [address] Historical LMR Provider 04/10/17 Gab Javed DO [address] [place] [address] Orthopedics & Sports Medicine, [place] [address] Historical LMR Provider 04/10/17 07/03/21 Aisha Tabor FNP [address] [place] [address] 7 [place] [address] [email or web address] Historical LMR Provider 04/10/17 01/16/24 Ronn Harris MD [address] [place] [phone] [email or web address] Historical LMR Provider 04/10/17 Tess Chan NP [address] [place] [address] Historical LMR Provider 04/10/17 2 Debra Rasheed MD [address] [place] [address] [email or web address] Historical LMR Provider 04/10/17 Adwoa Mehta MD [address] [place] [address] Orthopedics & Sports Medicine, [place] [address] [email or web address] Historical LMR Provider 04/10/17 Pranav Harris MD [address] [place], [place] [address] [place] [phone] [email or web address] Historical LMR Provider 04/10/17 07/03/21 Ronn Shea MD [address] [place] [address] Orthopedics & Sports Medicine, [facility] [place] [address] Historical LMR Provider 04/10/17 2 Debra Rasheed MD [address] [place] [address] [address] [place] [address] Insurance Assigned Provider 01/27/18 10/01/22 Byron Beebe DO [address] [place] [address] [email or web address] Primary Oncologist Hematology and Oncology 01/14/22 Malaika Hidalgo MD [address] [place] [address] 7 [place] [address] Insurance Assigned Provider 09/30/23 01/16/24 Malaika Hidalgo MD [address] [place] [address] 7 [place] [address] Insurance Assigned Provider 09/30/23 07/01/24 documented as of this encounter Additional Source Comments The information contained in this document represents components of the legal health record. It is not the complete legal health record.[facility]
--- OUTSIDE RECORDS SUMMARY | 2025-02-27 15:43 | XMS_ITS | Encounter Summary ---
Author Organization [facility] Address [address] [place] [address] [place] [address] Phone Care Team Providers Care Inside Sales Associate Name Role Phone Debra Rasheed MD Primary Care Provider [phone] Marielena Llanes MANAGER TRANSITION Unavailable Real Welch DO Unavailable Bea Monroy DO Unavailable Sarah Long MANAGER TRANSITION Unavailable Gab Garrett MD Unavailable Gab Javed DO Unavailable Aisha Tabor BUSINESS INTELLIGENCE ANALYST Unavailable Ronn Harris MD Unavailable Tess Chan MANAGER TRANSITION Unavailable Debra Rasheed MD Unavailable Adwoa Mehta MD Unavailable Pranav Harris MD Unavailable Ronn Shea MD Unavailable Debra Rasheed MD Unavailable Malaika Hidalgo MD Primary Care Provider [phone] Byron Beebe DO Unavailable Malaika Hidalgo MD Unavailable [phone] Unknown, Unknown Primary Care Provider Malaika Parham MD Unavailable [phone] Harry Moyer MD Primary Care Provider + Encounter Details Date Type Department Care Team (Latest Contact Info) Description 04/24/2019 Transcribe Orders [address] [place] [address] Giuliano Villa MD [facility], [address] [place] [address] Benign localized prostatic hyperplasia with lower urinary [...] st Contact Info) Description 12/18/2024 Procedure Pass [facility], Ct Scan - [address] [address] 03/05/2025 9:00 AM EDT Office Visit [facility] Orthopedics & Sports Medicine [address] [place] [address] Gab Javed DO [address] [place] [address] Orthopedics & Sports Medicine, [place] [address] 03/07/2025 10:00 AM EDT Office Visit [facility] Sports Medicine [address] [place] [address] Andre Zarate MD, SHEMAR [address] [address] [email or web address] 03/31/2025 8:00 AM EDT Telemedicine [facility] [place] 55 [facility], 8th Floor, [address] [place] [address] Lucia Samuel MD 55 [facility] Department of A[address]JA866 [place] [address] [email or web address] 04/11/2025 2:00 PM EDT Office Visit [facility] Heart Failure & Transplantation 32 [facility], 5th Floor, [address] [place] [address] Raza Pan MD 55 [facility] 5B [place] [address] [email or web address] 10/01/2025 10:30 AM EDT Appointment [facility], Ct Scan - [address] [address] Byron Beebe, [address] [address] [email or web address] 10/08/2025 10:30 AM EDT Office Visit [facility] at [address] [address] Byron Beebe, DO [address] [place] [address] [email or web address] documented as of this encounter Results * (ABNORMAL) PSA (screening) (04/24/2019 7:24 AM EDT) PSA 6.84(H) 0 - 4.00 ng/mL [facility] Blood 04/24/2019 7:24 AM EDT 04/24/2019 7:26 AM EDT us Giuliano Villa MD LAB BLOOD ORDERABLES Final Res ult [facility] 30 [place] [address] documented in this encounter Visit Diagnoses Diagnosis [...] documented as of this encounter Care Teams Inside Sales Associate Relationship Specialty Start Date End Date Debra Rasheed MD 234 [facility] 7 [place] [address] PCP - General 02/24/17 01/13/22 Malaika Hidalgo MD 234 [facility] 7 [place] [address] PCP - General Family Medicine 01/14/22 01/16/24 Unknown, Venea, PCP - General 01/17/24 09/25/24 Harry Moyer MD [address] [place] [address] 238 [place] [address] [email or web address] PCP - General Internal Medicine 09/26/24 Marielena Llanes NP [address] [facility] [place] [address] Historical LMR Provider 04/10/17 2 Real Welch DO [address] [place] [address] 7 [place] [address] [email or web address] Historical LMR Provider 04/10/17 07/03/21 Porfirio Bea Z, DO [address] [place] [address] 7 [place] [address] Historical LMR Provider 04/10/17 01/16/24 Sarah Long, [place] [address] Historical LMR Provider 04/10/17 2 Gab Garrett MD [address] [place] [address] Historical LMR Provider 04/10/17 Gab Javed DO [address] [place] [address] Orthopedics & Sports Medicine, [place] [address] [email or web address] Historical LMR Provider 04/10/17 07/03/21 Aisha Tabor FNP [address] [place] [address] 7 [place] [address] [email or web address] Historical LMR Provider 04/10/17 01/16/24 Ronn Harris MD [address] [place] [address] 7 [place] [address] [email or web address] Historical LMR Provider 04/10/17 Tess Chan, MANAGER TRANSITION [address] [place] [address] Historical LMR Provider 04/10/17 2 Debra Rasheed MD [address] [place] [address] 7 [place] [address] Historical LMR Provider 04/10/17 Adwoa Mehta MD [address] [place] [address] [address] Sports [facility], [place] [address] Historical LMR Provider 04/10/17 Pranav Harris MD [address] [place], [place] [address] [place] [id number] [email or web address] Historical LMR Provider 04/10/17 07/03/21 Ronn Shea MD [address] [place] [address] [address] [facility], [place] [address] Historical LMR Provider 04/10/17 2 Debra Rasheed MD [address] [place] [address] Insurance Assigned Provider 01/27/18 10/01/22 Byron Beebe DO [address] [place] [address] [email or web address] Primary Oncologist Hematology and Oncology 01/14/22 Malaika Hidalgo MD [address] [place] [address] 7 [place] [address] Insurance Assigned Provider 09/30/23 01/16/24 Malaika Hidalgo MD [address] [place] [address], [facility] 7 [place] [address] Insurance Assigned Provider 09/30/23 07/01/24 documented as of this encounter Additional Source Comments The information contained in this document represents components of the legal health record. It is not the complete legal health record.[facility]
--- OUTSIDE RECORDS SUMMARY | 2025-02-27 15:43 | XMS_ITS | Encounter Summary ---
Author Organization [facility] Address [address] [place] [address] [place] [address] Phone Care Team Providers Care Firer Helper Name Role Phone Debra Rasheed MD Primary Care Provider [phone] Marielena Llanes INBOUND SALES ADVISOR Unavailable Real Welch DO Unavailable Bea Monroy DO Unavailable Sarah Long INBOUND SALES ADVISOR Unavailable Gab Garrett MD Unavailable Gab Javed DO Unavailable Aisha Tabor POWER PLANT SUPERINTENDENT Unavailable Ronn Harris MD Unavailable Tess Chan INBOUND SALES ADVISOR Unavailable Debra Rasheed MD Unavailable Adwoa Mehta MD Unavailable Pranav Harris MD Unavailable Ronn Shea MD Unavailable Debra Rasheed MD Unavailable Malaika Hidalgo MD Primary Care Provider [phone] Byron Beebe DO Unavailable Malaika Hidalgo MD Unavailable [phone] Unknown, Unknown Primary Care Provider Malaika Parham MD Unavailable [phone] Harry Moyer MD Primary Care Provider + Encounter Details Date Type Department Care Team (Late st Contact Info) Description 06/29/2021 Procedure Pass [facility], Ct Scan - [address] [address] Social History Tobacco Use Types Packs/Day Years Used Date Smoking Tobacco: Former Cigarettes 1 5 1 969 1973 Smokeless Tobacco: Never Alcohol Use Standard [...] high school, GED, job training, learning the Citizen [place] language, technical skills, or developing parenting skills)? [...] st Contact Info) Description 12/18/2024 Procedure Pass [facility], Ct Scan - [facility] 30 [place] [address] 03/05/2025 9:00 AM EDT Office Visit [facility] Orthopedics & Sports Medicine [address] [place] [address] Gab Javed DO [address] [place] [address] Orthopedics & Sports Medicine, [place] [address] [email or web address] 03/07/2025 10:00 AM EDT Office Visit [facility] Sports Medicine [address] [place] [address] Andre Zarate MD, SHEMAR [address] [address] [email or web address] 03/31/2025 8:00 AM EDT Telemedicine [facility] Epilepsy Service 55 [facility], 8th Floor, [address] [place] [address] Lucia Samuel MD 55 [facility] Department of Mg[address]FC[address]472 [place] [address] [email or web address] 04/11/2025 2:00 PM EDT Office Visit [facility] Heart Failure & Transplantation 32 [facility], 5th Floor, [address] [place] [address] Raza Pan MD 55 [facility] 5B [place] [address] [email or web address] 10/01/2025 10:30 AM EDT Appointment [facility], Ct Scan - [address] [address] AbielByron Tahira, DO 30 [place] [address] ANA [email or web address] 10/08/2025 10:30 AM EDT Office Visit [facility] at [address] [address] Abiel Byron Hoffmann, DO 30 [place] [address] [email or web address] documented as of this encounter Visit Diagnoses Not on filedocumented in this encounter Additional Health Concerns Infection Onset Date Last Indicated Resolved Time CoV-Presumed Comment:COVID-19 Added 11/17/2021 11/17/2021 11/19/2021 10:26 AM EDT CoV-Risk 11/18/2021 11/18/2021 11/19/2021 10:2 6 AM EDT COVID-19 Comment:Per Note Documentation 11/19/2021 11/18/2021 1:23 PM EDT Assessment Noted Time PHQ-2 Depression Total Score: 0 06/26/19 22 11:41 AM EST documented as of this encounter Care Teams Firer Helper Relationship Specialty Start Date End Date Debra Rasheed MD [address] [place] [address] 7 [place] [address] [email or web address] PCP - General 02/24/17 01/13/22 Malaika Hidalgo MD [address] [place] [address], [facility] 7 [place] [address] [email or web address] PCP - General Family Medicine 01/14/22 01/16/24 Unknown, Unknown, PCP - General 01/17/24 09/25/24 Harry Moyer MD [address] [place] [address] [email or web address] [employer] PCP - General Internal Medicine 09/26/24 Marielena Llanes INBOUND SALES ADVISOR 1 [place] [address] Historical LMR Provider 04/10/17 2 Real Welch DO [address] [place] [address] 7 [place] [address] [email or web address] Historical LMR Provider 04/10/17 07/03/21 Bea Monroy DO [address] [place] [address] 7 [place] [address] Historical LMR Provider 04/10/17 01/16/24 Sarah Long NP [address] [place] [address] Historical LMR Provider 04/10/17 2 Gab Garrett MD [address] [place] [address] Historical LMR Provider 04/10/17 Gab Javed DO [address] [place] [address] Orthopedics & Sports Medicine, [facility] [place] [address] Historical LMR Provider 04/10/17 07/03/21 Aisha Tabor FNP [address] [place] [address] 7 [place] [address] [email or web address] Historical LMR Provider 04/10/17 01/16/24 Ronn Harris MD [address] [place] [address] 7 [place] [phone] [email or web address] Historical LMR Provider 04/10/17 Tess Chan, INBOUND SALES ADVISOR [address] [place] [address] Historical LMR Provider 04/10/17 2 Debra Rasheed MD [address] [place] [address] [email or web address] Historical LMR Provider 04/10/17 Adwoa Mehta MD [address] [place] [address] Orthopedics & Sports [place] [address] [email or web address] Historical LMR Provider 04/10/17 Pranav Harris MD [address] [place], [place] [address] [place] [phone] [email or web address] Historical LMR Provider 04/10/17 07/03/21 Ronn Shea MD [address] [place] [address] Orthopedics & Sports Medicine, [place] [address] [email or web address] Historical LMR Provider 04/10/17 2 Debra Rasheed MD [address] [place] [address] [email or web address] Insurance Assigned Provider 01/27/18 10/01/22 Byron Beebe DO 30 [place] [address] [email or web address] Primary Oncologist Hematology and Oncology 01/14/22 Malaika Hidalgo MD [address] [place] [address], [address] [place] [address] [email or web address] Insurance Assigned Provider 09/30/23 01/16/24 Malaika Hidalgo MD [address] [place] [address], [address] [place] [address] [email or web address] Insurance Assigned Provider 09/30/23 07/01/24 documented as of this encounter Additional Source Comments The information contained in this document represents components of the legal health record. It is not the complete legal health record.[facility]
--- OUTSIDE RECORDS SUMMARY | 2025-02-27 15:44 | XMS_ITS ---
Author Name CRISP Organization Unknown Results Test Name/Text Value Interpretation Date Range Source ETHANOL:MCNC:PT:SER/PLAS:Q N: <10 02/16/2025 - [facility] TRIACYLGLYCEROL LIPASE:CCNC:PT:SER/PLAS:QN : 25.0 02/16/2025 13 - 60 [facility] CREATINE KINASE:CCNC:PT:SER/PLAS:QN : 301.0 02/16/2025 39 - 308 [facility] GLOMERULAR FILTRATION RATE:ARVRAT:PT:SER/PLAS/BL D:QN:CREATININE-BASED FORMULA (CKD-EPI 2020)/1.73 SQ M 86.0 02/16/2025 - [facility] ANION GAP:SCNC:PT:SER/PLAS:QN:CA LCULATED.3IONS 13.0 02/16/2025 10 - 19 [facility] CARBON DIOXIDE:SCNC:PT:SER/PLAS:Q N: 25.0 02/16/2025 22 - 29 [facility] UREA NITROGEN:MCNC:PT:SER/PLAS: QN: 15.0 02/16/2025 6 - 23 [facility] SODIUM:SCNC:PT:SER/PLAS:QN : 128.0 Below low normal 02/16/2025 135 - 145 [facility] ALBUMIN/GLOBULIN:MRTO:PT:S ER/PLAS:QN: 1.7 02/16/2025 1.1 - 2.5 [facility] CALCIUM:MCNC:PT:SER/PLAS:Q N: 8.9 02/16/2025 8.6 - 10.4 [facility] CHLORIDE:SCNC:PT:SER/PLAS: QN: 90.0 Below low normal 02/16/2025 97 - 107 [facility] ASPARTATE AMINOTRANSFERASE:CCNC:PT:S ER/PLAS:QN: 30.0 02/16/2025 10 - 50 [facility] BILIRUBIN:MCNC:PT:SER/PLAS :QN: 0.4 02/16/2025 0 - 1.2 [facility] UREA NITROGEN/CREATININE:MRTO:P T:SER/PLAS:QN: 16.5 02/16/2025 7 - 29 [facility] GLOBULIN:MCNC:PT:SER:QN:CA LCULATED 2.3 02/16/2025 1.8 - 3.4 [facility] POTASSIUM:SCNC:PT:SER/PLAS :QN: 4.2 02/16/2025 3.5 - 5.3 [facility] ALBUMIN:MCNC:PT:SER/PLAS:Q N: 4.0 02/16/2025 3.7 - 5.1 [facility] ALKALINE PHOSPHATASE:CCNC:PT:SER/PL :QN: 103.0 02/16/2025 40 - 130 [facility] GLUCOSE:MCNC:PT:SER/PLAS:Q N: 169.0 Above high normal 02/16/2025 70 - 99 [facility] CREATININE:MCNC:PT:SER/JSUTIN S:QN: 0.91 02/16/2025 0.67 - 1.23 [facility] PROTEIN:MCNC:PT:SER/PLAS:Q N: 6.3 02/16/2025 6.3 - 7.9 [facility] ALANINE AMINOTRANSFERASE:CCNC:PT:S ER/PLAS:QN: 31.0 02/16/2025 10 - 62 [facility] eCrCl - CG 74.0 02/16/2025 CT[facility] Neut Auto 63.1 02/16/2025 40 - 75 [facility] Imm Gran # 0.02 02/16/2025 0 - 0.1 CT[facility] Neut Absolute 4.54 02/16/2025 2 - 7.5 CT[facility] Lymph Auto 22.9 02/16/2025 20 - 45 [facility] Eos Auto 2.9 02/16/2025 0 - 7 [facility] Gem Absolute 0.75 02/16/2025 0 - 1 [facility] Lymph Absolute 1.65 02/16/2025 1 - 4 [facility] Eos Absolute 0.21 02/16/2025 0 - 0.5 CT[facility] Imm Gran % 0.3 02/16/2025 0 - 0.9 [facility] Baso Auto 0.4 02/16/2025 0 - 2 [facility] Gem Auto 10.4 02/16/2025 4 - 12 [facility] Baso Absolute 0.03 02/16/2025 0 - 0.2 [facility] RDW- CV 11.8 02/16/2025 11.5 - 15 [facility] WBC 7.2 02/16/2025 3.5 - 10 [facility] Hgb 14.5 02/16/2025 13.5 - 17 [facility] RBC 4.33 02/16/2025 4.3 - 5.7 CT[facility] MCV 98.6 02/16/2025 80 - 99 [facility] MPV 8.0 Below low normal 02/16/2025 9.3 - 13 CT [facility] MCHC 34.0 02/16/2025 31 - 36 [facility] RDW- SD 44.2 02/16/2025 35 - 47 [facility] Platelet 224.0 02/16/2025 150 - 400 [facility] MCH 33.5 02/16/2025 25 - 34 [facility] Hct 42.7 02/16/2025 38 - 50 [facility] Oxcarbazepine Lv 5.5 Below low normal 02/11/2025 10 - 35 [facility] LACTATE:MCNC:PT:SER/PLAS:Q N: 1.2 02/08/2025 0.5 - 2.2 [facility] SPERMATOZOA:PRTHR:PT:URINE SED:ORD:MICROSCOPY.LIGHT FEW 02/08/2025 - CTS H BACTERIA:PRTHR:PT:URINE SED:ORD:MICROSCOPY.LIGHT NONE SEEN 02/08/2025 - CTS H EPITHELIAL CELLS:NARIC:PT:URINE SED:QN:MICROSCOPY.LIGHT.HP F FEW 02/08/2025 - [facility] LEUKOCYTES:NARIC:PT:URINE SED:QN:MICROSCOPY.LIGHT.HP F 0-5 02/08/2025 0 - 5 [facility] ERYTHROCYTES:NARIC:PT:URIN E SED:QN:MICROSCOPY.LIGHT.HP F 3-5 Abnormal 02/08/2025 0 - 3 [facility] OBSERVATION:SPGRAV:PT:URIN E:SEMIQN:TEST STRIP 1.015 02/08/2025 1.005 - 1.03 [facility] PROTEIN:PRTHR:PT:URINE:ORD :TEST STRIP 30 Abnormal 02/08/2025 - [facility] GLUCOSE:PRTHR:PT:URINE:ORD :TEST STRIP 1000 Abnormal 02/08/2025 - [facility] UROBILINOGEN:ACNC:PT:URINE :SEMIQN:TEST STRIP norm 02/08/2025 - [facility] LEUKOCYTE ESTERASE:PRTHR:PT:URINE:OR D:TEST STRIP NEG 02/08/2025 - [facility] HEMOGLOBIN:PRTHR:PT:URINE: ORD:TEST STRIP NEG 02/08/2025 - [facility] NITRITE:PRTHR:PT:URINE:ORD :TEST STRIP NEG 02/08/2025 - [facility] CLARITY:TYPE:PT:URINE:NOM: CLEAR 02/08/2025 - [facility] OBSERVATION:COLOR:PT:URINE :NOM: YELLOW 02/08/2025 - [facility] BILIRUBIN:PRTHR:PT:URINE:O RD:TEST STRIP NEG 02/08/2025 - CT[facility] PH:LSCNC:PT:URINE:SEMIQN:T EST STRIP 6.5 02/08/2025 4.5 - 8 [facility] KETONES:PRTHR:PT:URINE:ORD :TEST STRIP NEG 02/08/2025 - [facility] eCrCl - CG 74.0 02/08/2025 [facility] GLOMERULAR FILTRATION RATE:ARVRAT:PT:SER/PLAS/BL D:QN:CREATININE-BASED FORMULA (CKD-EPI 2020)/1.73 SQ M 85.0 02/08/2025 - [facility] LACTATE:MCNC:PT:SER/PLAS:Q N: 2.6 Critical 02/08/2025 0.5 - 2.2 [facility] ANION GAP:SCNC:PT:SER/PLAS:QN:CA LCULATED.3IONS 13.0 02/08/2025 10 - 19 [facility] PROTEIN:MCNC:PT:SER/PLAS:Q N: 6.5 02/08/2025 6.3 - 7.9 [facility] CHLORIDE:SCNC:PT:SER/PLAS: QN: 98.0 02/08/2025 97 - 107 [facility] UREA NITROGEN/CREATININE:MRTO:P T:SER/PLAS:QN: 18.5 02/08/2025 7 - 29 [facility] GLOBULIN:MCNC:PT:SER:QN:CA LCULATED 2.7 02/08/2025 1.8 - 3.4 [facility] ASPARTATE AMINOTRANSFERASE:CCNC:PT:S ER/PLAS:QN: 26.0 02/08/2025 10 - 50 [facility] CREATININE:MCNC:PT:SER/JUSTIN S:QN: 0.92 02/08/2025 0.67 - 1.23 [facility] CARBON DIOXIDE:SCNC:PT:SER/PLAS:Q N: 23.0 02/08/2025 22 - 29 [facility] ALBUMIN:MCNC:PT:SER/PLAS:Q N: 3.8 02/08/2025 3.7 - 5.1 [facility] SODIUM:SCNC:PT:SER/PLAS:QN : 134.0 Below low normal 02/08/2025 135 - 145 [facility] GLUCOSE:MCNC:PT:SER/PLAS:Q N: 112.0 Above high normal 02/08/2025 70 - 99 [facility] CALCIUM:MCNC:PT:SER/PLAS:Q N: 8.9 02/08/2025 8.6 - 10.4 [facility] POTASSIUM:SCNC:PT:SER/PLAS :QN: 4.2 02/08/2025 3.5 - 5.3 [facility] ALBUMIN/GLOBULIN:MRTO:PT:S ER/PLAS:QN: 1.4 02/08/2025 1.1 - 2.5 [facility] UREA NITROGEN:MCNC:PT:SER/PLAS: QN: 17.0 02/08/2025 6 - 23 [facility] ALANINE AMINOTRANSFERASE:CCNC:PT:S ER/PLAS:QN: 27.0 02/08/2025 10 - 62 [facility] BILIRUBIN:MCNC:PT:SER/PLAS :QN: 0.3 02/08/2025 0 - 1.2 [facility] ALKALINE PHOSPHATASE:CCNC:PT:SER/PL :QN: 99.0 02/08/2025 40 - 130 [facility] Hgb 14.8 02/08/2025 13.5 - 17 [facility] MCH 33.3 02/08/2025 25 - 34 [facility] MCV 101.1 Above high normal 02/08/2025 80 - 99 C TSH MCHC 33.0 02/08/2025 31 - 36 [facility] Platelet 195.0 02/08/2025 150 - 400 [facility] RDW- SD 47.1 Above high normal 02/08/2025 35 - 47 C TSH RBC 4.44 02/08/2025 4.3 - 5.7 [facility] RDW- CV 12.4 02/08/2025 11.5 - 15 [facility] Hct 44.9 02/08/2025 38 - 50 [facility] WBC 6.2 02/08/2025 3.5 - 10 [facility] MPV 8.4 Below low normal 02/08/2025 9.3 - 13 CT SH Neut Auto 54.4 02/08/2025 40 - 75 [facility] Baso Auto 0.6 02/08/2025 0 - 2 [facility] Baso Absolute 0.04 02/08/2025 0 - 0.2 CT[facility] Neut Absolute 3.35 02/08/2025 2 - 7.5 CT[facility] Gem Auto 11.8 02/08/2025 4 - 12 [facility] Imm Gran # 0.02 02/08/2025 0 - 0.1 CT[facility] Eos Absolute 0.19 02/08/2025 0 - 0.5 CT[facility] Imm Gran % 0.3 02/08/2025 0 - 0.9 [facility] Eos Auto 3.1 02/08/2025 0 - 7 CT[facility] Gem Absolute 0.73 02/08/2025 0 - 1 CT[facility] Lymph Absolute 1.84 02/08/2025 1 - 4 CT[facility] Lymph Auto 29.8 02/08/2025 20 - 45 [facility] Encounters Encounter Type Encounter Reason Primary Diagnosis Location Date Emergency seizure activity [facility] Inpatient seizures Sedative, hypnot ic or anxiolytic dependence, uncomplicated [facility] 02/08/2025 Care Team Organization Name Specialty Phone Email Start Date End Da te [facility] 02/14/2025 [facility] PCPONLY NONE Primary Care 2024
--- OUTSIDE RECORDS SUMMARY | 2025-02-27 15:44 | XMS_ITS | Encounter Summary ---
Author Organization [facility] Address [address] [place] [address] [place] [address] Phone Care Team Providers Care Fitting Room Inspector Name Role Phone Debra Rasheed MD Primary Care Provider Marielena Llanes ENERGY SALES CONSULTANT Unavailable Real Welch DO Unavailable Bea Monroy DO Unavailable Sarah Long ENERGY SALES CONSULTANT Unavailable Gab Garrett MD Unavailable Gab Javed DO Unavailable Aisha Tabor TUB WASHER Unavailable Ronn Harris MD Unavailable Tess Chan ENERGY SALES CONSULTANT Unavailable Debra Rasheed MD Unavailable Adwoa Mehta MD Unavailable Pranav Harris MD Unavailable Ronn Shea MD Unavailable Debra Rasheed MD Unavailable Malaika Hidalgo MD Primary Care Provider [phone] Byron Beebe DO Unavailable Malaika Hidalgo MD Unavailable [phone] Unknown, Unknown Primary Care Provider Malaika Parham MD Unavailable [phone] Harry Moyer MD Primary Care Provider + Encounter Details Date Type Department Care Team (Late st Contact Info) Description 09/18/2020 Procedure Pass [facility] PERIOPERATIVE DEPT [address] [place] [address] Social History Tobacco Use Types Packs/Day Years [...] st Contact Info) Description 12/18/2024 Procedure Pass [facility], Ct Scan - [address] [address] 03/05/2025 9:00 AM EDT Office Visit [facility] Orthopedics & Sports Medicine [address] [place] [address] Gab Javed DO [address] [place] [address] Orth[facility] [place] [place] [address] 03/07/2025 10:00 AM EDT Office Visit [facility] Sports Medicine [address] [place] [address] Andre Zarate MD, SHEMAR [address] [address] 03/31/2025 8:00 AM EDT Telemedicine [facility] Epilepsy Service [address] [place] [address], 8th Floor, [address] [place] [address] Lucia Samuel MD 55 [facility] Department of [address] [place] [address] [email or web address] 04/11/2025 2:00 PM EDT Office Visit [facility] Heart Failure & Transplantation [address] [facility], 5th Floor, [address] [place] [address] Raza Pan MD 55 [facility] [address] [place] [address] [email or web address] 10/01/2025 10:30 AM EDT Appointment [facility], Ct Scan - [address] [address] Byron Beebe, [address] [address] [email or web address] 10/08/2025 10:30 AM EDT Office Visit [facility] Cancer Center at [address] [address] Byron Beebe, [address] [address] [email or web address] documented as of this encounter Visit Diagnoses Not on filedocumented in this encounter Additional Health Concerns Infection Onset Date Last Indicated Resolved Time CoV-Presumed Comment:COVID-19 Added 11/17/2021 11/17/2021 11/19/2021 10:26 AM EDT CoV-Risk 11/18/2021 11/18/2021 11/19/2021 10:2 6 AM EDT COVID-19 Comment:Per Note Documentation 11/19/2021 11/18/2021 1:23 PM EDT documented as of this encounter Care Teams Fitting Room Inspector Relationship Specialty Start Date End Date Debra Rasheed MD [address] [place] [address] 7 [place] [address] [email or web address] PCP - General 02/24/17 01/13/22 Malaika Hidalgo MD [address] [place] [address] 7 [place] [address] [email or web address] PCP - General Family Medicine 01/14/22 01/16/24 Unknown, Veena, MD PCP - General 01/17/24 09/25/24 Harry Moyer MD [address] [place] [address] [email or web address] PCP - General Internal Medicine 09/26/24 Marielena Llanes NP [address] [place] [address] Historical LMR Provider 04/10/17 2 Real Welch DO [address] [place] [address] [email or web address] Historical LMR Provider 04/10/17 07/03/21 Bea Monroy DO [address] [place] [address] Historical LMR Provider 04/10/17 01/16/24 Sarah Long NP [address] [place] [address] Historical LMR Provider 04/10/17 2 Gab Garrett MD [address] [place] [address] Historical LMR Provider 04/10/17 Gab Javed DO [address] [place] [address] Orthopedics & Sports Medicine, [place] [address] Historical LMR Provider 04/10/17 07/03/21 Aisha Tabor FNP [address] [place] [address] 7 [place] [address] [email or web address] Historical LMR Provider 04/10/17 01/16/24 Ronn Harris MD [address] [place] [address] 7 [place] [phone] [email or web address] Historical LMR Provider 04/10/17 Tess Chan NP [address] [place] [address] Historical LMR Provider 04/10/17 2 Debra Rasheed MD [address] [place] [address] 7 [place] [address] [email or web address] Historical LMR Provider 04/10/17 Adwoa Mehta MD [address] [place] [address] Orthopedics & Sports [facility], [place] [address] [email or web address] Historical LMR Provider 04/10/17 Pranav Harris MD [address] [place], [place] [address] [place] [phone] [email or web address] Historical LMR Provider 04/10/17 07/03/21 Ronn Shea MD [address] [place] [address] Orthopedics & Sports Medicine, [facility] [place] [address] Historical LMR Provider 04/10/17 2 Debra Rasheed MD [address] [place] [address] 7 [place] [id number] Insurance Assigned Provider 01/27/18 10/01/22 Byron Beebe DO [address] [place] [address] [email or web address] Primary Oncologist Hematology and Oncology 01/14/22 Malaika Hidalgo MD [address] [place] [address] 7 [place] [id number] Insurance Assigned Provider 09/30/23 01/16/24 Malaika Hidalgo MD [address] [place] [address] 7 [place] [id number] Insurance Assigned Provider 09/30/23 07/01/24 documented as of this encounter Additional Source Comments The information contained in this document represents components of the legal health record. It is not the complete legal health record.[facility]
--- OUTSIDE RECORDS SUMMARY | 2025-02-27 15:44 | XMS_ITS | Encounter Summary ---
Author Organization [facility] Address [address] [place] [address] Phone Care Team Providers Care Senior Production Manager Name Role Phone Ronn Harris MD Unavailable [phone] Debra Rasheed MD Unavailable [phone] Adwoa Mehta MD Unavailable [phone] Byron Beebe DO Unavailable [phone] Harry Moyer MD Primary Care Provider + Encounter Details Date Type Department Care Team (Late st Contact Info) Description 12/06/2024 Procedure Pass [facility], [address] [address] Social History Tobacco Use Types Packs/Day Years [...] Procedure Pass [facility], Ct Scan - [address] [address] 03/05/2025 9:00 AM EDT Office Visit [facility] Orthopedics & Sports Medicine 4 [place] [address] Gab Javed DO 4 [facility] Orthopedics & Sports Medicine[facility] [place] [address] [email or web address] 03/07/2025 10:00 AM EDT Office Visit [facility] Sports Medicine [address] [place] [address] Andre Zarate MD, SHEMAR [address] [address] [email or web address] 03/31/2025 8:00 AM EDT Telemedicine [facility] Epilepsy Service [address] [facility], 8th Floor, [address] [place] [address] Lucia Samuel MD 55 [facility] Department of [address] [place] [address] [email or web address] 04/11/2025 2:00 PM EDT Office Visit [facility] Heart Failure & Transplantation 32 [facility], 5th Floor, [address] [place] [address] Raza Pan MD [address] [address] [email or web address] 10/01/2025 10:30 AM EDT Appointment [facility], Ct Scan - [address] [address] Byron Beebe DO 30 [place] [address] [email or web address] 10/08/2025 10:30 AM EDT Office Visit [facility] Center at [facility] [address] [place] [address] Byron Beebe DO 30 [place] [address] [email or web address] documented as of this encounter Visit Diagnoses Not on filedocumented in this encounter Additional Health Concerns Assessment Noted Time PHQ-2 Depression Total Score: 0 01/04/20 22 2:34 PM EDT documented as of this encounter Care Teams Senior Production Manager Relationship Specialty Start Date End Date Harry Moyer MD [address] [facility] [address] [place] [address] [email or web address] PCP - General Internal Medicine 09/26/24 Ronn [place] MD [address] [facility] 7 [place] [phone] [email or web address] Historical LMR Provider 04/10/17 Debra Rasheed MD [address] [place] [address] 7 [place] [address] [email or web address] Historical LMR Provider 04/10/17 Adwoa Mehta MD [address] [place] [address] Orthopedics & Sports Medicine, [facility] [place] [address] [email or web address] Historical LMR Provider 04/10/17 Byron Beebe DO 30 [place] [address] [email or web address] Primary Oncologist Hematology and Oncology 01/14/22 documented as of this encounter Additional Source Comments The information contained in this document represents components of the legal health record. It is not the complete legal health record.[facility]
== END 2025-02-27 17:40 | disposition home or self-care (01) ==
LOC: HO.HOP 14:22
PROVIDERS: Visit Provider Psychiatry & Neurology Psychiatry
DX: F41.1 Generalized anxiety disorder (principal); I42.9 Cardiomyopathy, unspecified; I44.7 Left bundle-branch block, unspecified; F33.9 Major depressive disorder, recurrent, unspecified
CPT/HCPCS: 99214

== ENCOUNTER → 2025-02-27 14:22 | Outpatient (BNVA) | payer MEDICARE, OTHER, SELFPAY | PROVIDERS: Visit Provider Psychiatry & Neurology Psychiatry | DX: F33.9 Major depressive disorder, recurrent, unspecified (principal); I44.7 Left bundle-branch block, unspecified; I42.9 Cardiomyopathy, unspecified; F41.1 Generalized anxiety disorder | CPT/HCPCS: 99212 ==

== ENCOUNTER 2025-03-21 16:55 | Outpatient (AMB) | payer MEDICARE, OTHER, SELFPAY ==
--- NOTE | 2025-03-21 13:44 | MHC.OFFVISPS ---
Intake Intake Visit Reasons: Depression Allergies phenytoin (From Dilantin) Allergy (Intermediate, Verified 06/30/22 16:01) Difficulty Breathing Medication List - Last Reconciled 03/21/25 by Geronimo Jung MD aripiprazole 1 - 2 mg (0.5 - 1 x 2 mg) PO DAILY clonazepam 0.5 mg PO BEDTIME dapagliflozin propanediol (Farxiga) 10 mg PO DAILY eplerenone mg PO gabapentin 600 mg PO BEDTIME metoprolol succinate ER 12.5 mg PO BID oxcarbazepine 600 mg PO BID rosuvastatin 20 mg PO DAILY sacubitril-valsartan 24-26 mg (Entresto) 1 tab PO BID venlafaxine ER 150 mg PO BEDTIME HPI- Psychiatric Chief Complaint: Depression HPI Narrative: Pt has had shoulder surgery mar 11 sz mg 3 days for sz had eeg monitoring remains sober seems somewhat apathetic passive not engaged in any group treatment and not currently seeing a therapist. His has been quite learned about him he is able to that to some degree he had felt life was passing him by and his use of substances was a diversion but seems passive when discussing this . Not overly depressed remains on Effexor Abilify clonazepam Trileptal he is being managed for his seizure disorder by Neurology Past Psychiatric History: The patient has a history of recurrent depression and anxiety history of 1-2 seizures many years ago sees Dr. Chavira occasionally Mental Status Exam Mental Status Exam Narrative: Patient seen telehealth appointment. Patient depressed constricted future oriented denies active SI. He is somewhat apathetic ? pst sz . Seems to have a hard time connecting to jeopardy he put himself in with his drinking including cardiomyopathy seizure disorder and his marriage. Patient states he has been sober insight and judgment do seem impaired to some degree ongoing was not interested in partial hospital were other group setting Assessment and Plan Assessment & Plan (1) Generalized anxiety disorder: Status: Acute Code(s): F41.1 - Generalized anxiety disorder (2) Major depression, recurrent, chronic: Status: Acute Code(s): F33.9 - Major depressive disorder, recurrent, unspecified (3) Alcohol use disorder: Status: Acute Code(s): F10.90 - Alcohol use, unspecified, uncomplicated (4) Cardiomyopathy: Status: Acute Code(s): I42.9 - Cardiomyopathy, unspecified (5) LBBB (left bundle branch block): Status: Acute Code(s): I44.7 - Left bundle-branch block, unspecified Plan Continue current plan of care medication tinajero patient seems somewhat disconnected from consequences substance use its effects on his health its effects on his marriage question post seizure apathy and cognitive dulling unclear. Strongly urged structured setting including outpatient partial hospital setting cont effexor abilify ? random urine unclear motivation denies si but a certain sense of hopelessness Counseling and coordination of Care Pt. Self Management counseling: Med illness tx adherence, Substance abuse tx adhere and Cognitive restructuring Details-Self Mgmt counseling: Issues related to apathy chronic dysphoria certain sense lack of motivation in regards to substance abuse versus cognitive dulling and slowing status post seizures. Reviewed particular medical risks with the patient that he has in regards seizure disorder cardiomyopathy and depression. Denies any active SI Medication management counseling: Effectiveness, Side effects and Dosing range Details-Med Mgmt counseling: Discussed possibility of MAT question topamax Diagnosis and Prognosis Counseling: Problematic behaviors secondary to diagnosis and Adequacy of current interventions Details: I spent [32] minutes reviewing the record, seeing the patient and documenting in the medical record. Counseling provided to the patient/caregiver as outlined below. Addressed patient/caregiver concerns regarding current medication regime including effective adherence. Addressed patient/caregiver concerns regarding diagnosis and prognosis including accuracy of diagnosis, prognosis over time, impact of diagnosis. Addressed patient/caregiver concerns regarding impact of recent stressors. 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
== END 2025-03-21 16:55 | disposition home or self-care (01) ==
LOC: HO.HOP 16:55
PROVIDERS: Visit Provider Psychiatry & Neurology Psychiatry
DX: F41.1 Generalized anxiety disorder (principal); F33.9 Major depressive disorder, recurrent, unspecified; F10.90 Alcohol use, unspecified, uncomplicated; I42.9 Cardiomyopathy, unspecified; I44.7 Left bundle-branch block, unspecified
CPT/HCPCS: 90833; 99213

== ENCOUNTER → 2025-03-21 16:55 | Outpatient (BNVA) | payer MEDICARE, OTHER, SELFPAY | PROVIDERS: Visit Provider Psychiatry & Neurology Psychiatry | DX: F33.9 Major depressive disorder, recurrent, unspecified (principal); F41.1 Generalized anxiety disorder; F10.90 Alcohol use, unspecified, uncomplicated; I42.9 Cardiomyopathy, unspecified; I44.7 Left bundle-branch block, unspecified; Z79.899 Other long term (current) drug therapy | CPT/HCPCS: 99212 ==